=== PATIENT | male | born 1965 | race Two or more races ===

== ENCOUNTER 2017-06-27 20:21 | Emergency (ER) | payer OTHER ==
[2017-06-27 20:37] VITALS: BP 149/85; PULSE 88; TEMP 98.3; BMI 34.0
[2017-06-27] MEDS ORDERED: NAPROXEN 500 MG TABLET (FP) PO ONE (22:01)
[2017-06-27] MEDS ORDERED: diazePAM 5 MG TABLET PO ONE (22:01)
--- NOTE | 2017-06-27 22:10 | PDOC ---
History of Present Illness - General Chief Complaint: Chronic pain Stated Complaint: BACK INJURY Time Seen by Provider: 06/27/17 21:34 History Source: Patient Exam Limitations: No Limitations - History of Present Illness Initial Comments: 06/27/17 22:11 Assessment 51-year-old male with past medical history of hypertension, hyperlipidemia, and anemia who presents to the emergency department with sudden onset atraumatic lower back pain starting yesterday. Patient states he walked approximately 5-6 blocks became tired went home and took a shower. After he dried off after shower, he was putting on his underwear and when he flexed his left hip he felt a sudden onset twinge in his left lower back radiating to his mid lower back. Patient reports she's had back problems for the past 3-4 years. He states since his initial back injuries only been able to walk a maximum of 5- 6 blocks prior to feeling weakness and pain radiating down left leg and stopping at the knee. Patient also states that he has chronic numbness to his left lateral leg since initial injury. He is currently undergoing therapy with an orthopedic surgeon who was prescribed physical therapy and cortisone injections. He is to start physical therapy later this month. Past History - Past Medical History Allergies/Adverse Reactions: Allergies Allergy/AdvReac Type Severity Reaction Status Date / Time No Known Allergies Allergy Verified 06/27/17 22:02 Home Medications: Ambulatory Orders Atorvastatin Ca [Lipitor] 10 mg PO HS 06/27/17 Cyclobenzaprine HCl [Flexeril 10 mg] 10 mg PO BID PRN #20 tablet 06/27/17 Folic Acid - 1 mg PO DAILY 06/27/17 Lisinopril [Prinivil -] 40 mg PO DAILY 06/27/17 Naproxen [Naprosyn -] 500 mg PO BID 06/27/17 Nifedipine [Nifedipine ER] 60 mg PO ASDIR 06/27/17 Thiamine HCl [B-1] 100 mg PO ASDIR 06/27/17 - Suicide/Smoking/Psychosocial Hx Smoking History: Former smoker Have you smoked in the past 12 months: No Information on smoking cessation initiated: No Hx Alcohol Use: No Drug/Substance Use Hx: No Substance Use Type: None Review of Systems - Review of Systems Able to Perform ROS?: Yes Is the patient limited Nepali proficient: No Musculoskeletal: Yes: See HPI All Other Systems: Reviewed and Negative *Physical Exam - Vital Signs Last Vital Signs Temp Pulse Resp BP Pulse Ox 98.3 F 88 20 149/85 98 06/27/17 20:34 06/27/17 20:34 06/27/17 20:34 06/27/17 20:34 06/27/17 20:34 - Physical Exam General Appearance: Yes: Appropriately Dressed. No: Apparent Distress HEENT: positive: DRE, Normal ENT Inspection Neck: positive: Trachea midline, Supple Respiratory/Chest: positive: Lungs Clear, Normal Breath Sounds. negative: Respiratory Distress, Accessory Muscle Use Cardiovascular: positive: Regular Rhythm, Regular Rate. negative: Edema, Murmur Gastrointestinal/Abdominal: positive: Normal Bowel Sounds, Soft. negative: Tender Musculoskeletal: positive: Normal Inspection, Other (left paraspinous tenderness ). negative: CVA Tenderness Extremity: positive: Normal Capillary Refill, Normal Inspection Integumentary: positive: Normal Color, Dry, Warm Neurologic: positive: food server II-XII NML intact, Fully Oriented, Alert, Normal Mood/ Affect, Normal Response, Motor Strength 5/5 Medical Decision Making - Medical Decision Making 06/27/17 22:10 A/P: Assessment 51-year-old male with past medical history of hypertension, hyperlipidemia, and anemia who presents to the emergency department with sudden onset atraumatic lower back pain starting yesterday. Patient states he walked approximately 5-6 blocks became tired went home and took a shower. After he dried off after shower, he was putting on his underwear and when he flexed his left hip he felt a sudden onset twinge in his left lower back radiating to his mid lower back. Patient reports she's had back problems for the past 3-4 years. He states since his initial back injuries only been able to walk a maximum of 5- 6 blocks prior to feeling weakness and pain radiating down left leg and stopping at the knee. Patient also states that he has chronic numbness to his left lateral leg since initial injury. He is currently undergoing therapy with an orthopedic surgeon who was prescribed physical therapy and cortisone injections. He is to start physical therapy later this month. Patient is alert and oriented 3 and in no apparent distress. Trachea midline. Respirations even and unlabored. Lungs clear to auscultation bilaterally. S1 and S2 are present without murmur, rub or gallop. Regular rate and rhythm noted. Normoactive bowel sounds. Abdomen soft nontender nondistended. Tenderness to palpation in the left lower back immediately superior to the iliac crests and lateral to the spine. Pain radiates to the mid spine which is tender to palpation. No deformities, crepitus or step-offs presents. Patient is able to range her hip and knee against resistance without difficulty. Differential diagnosis includes spinal stenosis, [place] skeletal pain, sciatic nerve pain Given the patient has neurogenic claudication, likely spinal stenosis. As patient does not have any saddle anesthesia or bowel or bladder incontinence, will defer MRI at this time. Patient made aware that MRI may be required and should follow-up with his orthopedic surgeon to have testing done as an outpatient. I will medicate the patient with Valium 5 mg and Naprosyn 500 mg. I will give the patient a prescription for Flexeril to use as an outpatient. Patient instructed to keep appointment with physical therapist and to make an appointment with the orthopedic doctor who is currently providing care for the patient. 06/27/17 22:29 Patient feels better after medication. I discussed the physical exam findings, ancillary test results and final diagnoses with the patient. I answered all of the patient's questions. The patient was satisfied with the care received and felt comfortable with the discharge plan and treatment plan. The patient will call his orthopedist within 96 hours to arrange follow-up and will return to the Emergency Department with any new, persistent or worsening symptoms. *DC/Admit/Observation/Transfer Diagnosis at time of Disposition: Back pain Qualifiers: Back pain location: low back pain Chronicity: acute Back pain laterality: left Sciatica presence: without sciatica Qualified Code(s): M54.5 - Low back pain; M54.5 - Low back pain - Discharge Dispostion Disposition: HOME Condition at time of disposition: Stable Admit: No - Prescriptions Prescriptions: Cyclobenzaprine HCl [Flexeril 10 mg] 10 mg PO BID PRN #20 tablet PRN Reason: Back Pain - Patient Instructions Additional Instructions: Keep her previously scheduled appointment for physical therapy. Call the orthopedist your early seen for [place] scheduled appointment if pain is not improved within the next 4 days. Take Flexeril 10 mg twice a day as needed for back pain. You may do an MRI as an outpatient to evaluate for spinal stenosis. Return to emergency department for worsening back pain, numbness or tingling to legs, numbness or tingling to genitals or rectum, loss of control of your bladder or bowel, or any other concerns. Thank you for choosing us to provide your emergent healthcare needs.
== END 2017-06-27 22:36 | disposition home or self-care (01) ==
LOC: EDSEX 20:21 → JERFT 20:21
DX: M54.5 Low back pain (principal); I10 Essential (primary) hypertension; E78.5 Hyperlipidemia, unspecified; D64.9 Anemia, unspecified
CPT/HCPCS: 99281-25

== ENCOUNTER 2017-11-23 20:03 | Emergency (ER) | payer OTHER ==
--- NOTE | 2017-11-23 20:22 | PDOC ---
Rapid Medical Evaluation Time Seen by Provider: 11/23/17 20:17 Medical Evaluation: Allergies Allergy/AdvReac Type Severity Reaction Status Date / Time No Known Allergies Allergy Verified 06/27/17 22:02 11/23/17 20:17 The patient presents with a chief complaint of: Lower back pain. Hx of chronic low back pain. Was dusting and reached wrong earlier today. Now c/o spasm, seeing neurology/spinal specialist for the pain evaluation/management. Took naproxen at 6pm. Denies saddle anesthesia, bladder/bowel incontinence. I have performed a brief in-person evaluation of this patient; Pertinent physical exam findings: ambulatory however painful to stand straight, in no respiratory distress. Neurologically intact I have ordered the following: Nothing The patient will proceed to the ED for further evaluation.
[2017-11-23 20:23] VITALS: BP 165/134; PULSE 92; TEMP 98; BMI 38.4
[2017-11-23] MEDS ORDERED: diazePAM 5 MG TABLET PO ONE (22:22)
[2017-11-23] MEDS ORDERED: diazePAM 5 MG TABLET ONE (22:25)
--- NOTE | 2017-11-23 22:25 | PDOC ---
History of Present Illness - General Chief Complaint: Pain Stated Complaint: BACK PAIN Time Seen by Provider: 11/23/17 20:17 History Source: Patient Exam Limitations: No Limitations - History of Present Illness Initial Comments: 11/23/17 23:17 This is a 51-year-old male with past medical history of hypertension, hyperlipidemia, and anemia who presents to the emergency department with sudden onset atraumatic lower back pain starting at approximately 5pm. Patient states he was helping his housework and while dusting he reached to clear the end of a shelf with a duster and felt a sudden onset sharp pinching feeling in his mid lower back which radiated to bilateral hips and shooting down bilateral lower extremity's. Patient states she has chronic lower back pain and 1 week ago was seen by his senior computer specialist who gave him epidural injections. Patient denies incontinence of bladder or bowel, saddle anesthesia, trauma. Past History - Past Medical History Allergies/Adverse Reactions: Allergies Allergy/AdvReac Type Severity Reaction Status Date / Time No Known Allergies Allergy Verified 11/23/17 20:20 Home Medications: Ambulatory Orders Naproxen [Naprosyn -] 500 mg PO BID 06/27/17 Lisinopril/Hydrochlorothiazide [Lisinopril-Hctz 20-12.5 mg Tab] 1 each PO ASDIR 11/23/17 Methocarbamol [Robaxin -] 750 mg PO Q8H PRN #21 tablet MDD 3 11/23/17 COPD: No HTN: Yes Hypercholesterolemia: Yes - Suicide/Smoking/Psychosocial Hx Smoking History: Never smoked Have you smoked in the past 12 months: No Information on smoking cessation initiated: No Hx Alcohol Use: No Drug/Substance Use Hx: No Substance Use Type: None Review of Systems - Review of Systems Able to Perform ROS?: Yes Is the patient limited Kittitian proficient: No Constitutional: No: Symptoms Reported HEENTM: No: Symptoms Reported Respiratory: No: Symptoms reported Cardiac (ROS): No: Symptoms Reported ABD/GI: No: Symptoms Reported : No: Symptoms Reported Musculoskeletal: Yes: See HPI Integumentary: No: Symptoms Reported Neurological: No: Symptoms reported Endocrine: No: Symptoms Reported Hematologic/Lymphatic: No: Symptoms Reported *Physical Exam - Vital Signs Last Vital Signs Temp Pulse Resp BP Pulse Ox 98.0 F 92 H 20 165/134 98 11/23/17 20:21 11/23/17 20:21 11/23/17 20:21 11/23/17 20:21 11/23/17 20:21 - Physical Exam General Appearance: Yes: Appropriately Dressed. No: Apparent Distress HEENT: positive: Normal ENT Inspection Neck: positive: Trachea midline, Supple Respiratory/Chest: positive: Lungs Clear, Normal Breath Sounds. negative: Respiratory Distress, Accessory Muscle Use Cardiovascular: positive: Regular Rhythm, Regular Rate. negative: Murmur Gastrointestinal/Abdominal: positive: Normal Bowel Sounds, Soft. negative: Tender Musculoskeletal: positive: Normal Inspection. negative: CVA Tenderness, Muscle Spasm, Vertebral Tenderness Extremity: positive: Normal Inspection, Normal Range of Motion, Pelvis Stable. negative: Tender, Swelling, Erythema, Inflammation Integumentary: positive: Normal Color, Dry, Warm Neurologic: positive: Alert, Normal Response, Motor Strength 5/5. negative: Numbness, Sensory Deficit Medical Decision Making - Medical Decision Making 11/23/17 23:24 A/P: 52-year-old male with chronic back pain who reached fall while doing housework and felt an acute exacerbation of his chronic issue. No vertebral tenderness or deformity present upon palpation. Pain worsens with flexion and extension of spine. Full sensation to medial and lateral bilateral lower extremities Able to perform straight leg raises. No foot drop noted Patient able to secure an appointment with a spinal specialist tomorrow Lower back radiculopathy from no spinal stenosis Valium 5 mg by mouth now Prescription for Robaxin 750 mg 3 times a day when necessary Discharge the patient home with strict return precautions *DC/Admit/Observation/Transfer Diagnosis at time of Disposition: Radiculopathy of lumbosacral region - Discharge Dispostion Disposition: HOME Condition at time of disposition: Stable Admit: No - Prescriptions Prescriptions: Methocarbamol [Robaxin -] 750 mg PO Q8H PRN #21 tablet MDD 3 PRN Reason: Back Pain - Referrals Referrals: ON STAFF,NOT [Primary Care Provider] - - Patient Instructions Additional Instructions: Call the senior computer specialist tomorrow. Take Robaxin 750mg three times a day as needed for back pain. Return to emergency department for worsening back pain, numbness or tingling to legs, numbness or tingling to genitals or rectum, loss of control of your bladder or bowel, or any other concerns. Thank you for choosing us to provide your emergent healthcare needs. - Post Discharge Activity
== END 2017-11-23 22:48 | disposition home or self-care (01) ==
LOC: JERFT 20:03
DX: M54.17 Radiculopathy, lumbosacral region (principal); X50.1XXA Overexertion from prolonged static or awkward postures, initial encounter; Y93.E9 Activity, other interior property and clothing maintenance; Y92.038 Other place in apartment as the place of occurrence of the external cause; Y99.8 Other external cause status; I10 Essential (primary) hypertension; E78.00 Pure hypercholesterolemia, unspecified
CPT/HCPCS: 99281-25

== ENCOUNTER 2019-04-21 21:15 | Inpatient (IN) | payer OTHER ==
[2019-04-21] MEDS ORDERED: ASPIRIN 81 MG CHEWABLE TABLETS PO ONE (21:36)
[2019-04-21] MEDS ORDERED: FUROSEMIDE 40 MG/4 ML INJECTABLE VIAL IVPUSH ONE (21:36)
[2019-04-21] MEDS ORDERED: NITROGLYCERIN SUBLINGUAL 1/150 0.4 MG TAB SL ONE (21:37)
[2019-04-21] MEDS ORDERED: ASPIRIN 81 MG CHEWABLE TABLETS ONE (21:43)
[2019-04-21] MEDS ORDERED: FUROSEMIDE 40 MG/4 ML INJECTABLE VIAL ONE (21:43)
[2019-04-21] MEDS ORDERED: NITROGLYCERIN SUBLINGUAL 1/150 0.4 MG TAB ONE (21:43)
--- NOTE | 2019-04-21 21:44 | PDOC ---
History of Present Illness <GabbiGermaine - Last Filed: 04/22/19 00:06> - General History Source: Patient Exam Limitations: No Limitations - History of Present Illness Initial Comments: 04/21/19 21:51 Ben Newman is a 53yM with PMHx HTN, asthma presenting with SOB. Started 4d ago , progressively worsening, worse laying down. Associated bilateral LE edema, mild AB distension, reduced physical activity d/t SOB. No recent travel. Denies fever, cough, vision change, headache, chest/AB pain, urinary/bowel changes. <Mark Ramos - Last Filed: 04/22/19 00:47> - General Chief Complaint: Shortness of Breath Stated Complaint: SOB Time Seen by Provider: 04/21/19 21:34 Past History <GabbiGermaine - Last Filed: 04/22/19 00:06> - Past Medical History COPD: No HTN: Yes Hypercholesterolemia: Yes - Suicide/Smoking/Psychosocial Hx Smoking History: Never smoked Have you smoked in the past 12 months: No Hx Alcohol Use: No Drug/Substance Use Hx: No Substance Use Type: None <Mark Ramos - Last Filed: 04/22/19 00:47> - Past Medical History Allergies/Adverse Reactions: Allergies Allergy/AdvReac Type Severity Reaction Status Date / Time shellfish derived Allergy Severe Verified 04/21/19 22:42 Home Medications: Ambulatory Orders Lisinopril/Hydrochlorothiazide [Lisinopril-Hctz 20-12.5 mg Tab] 1 each PO ASDIR 11/23/17 Methocarbamol [Robaxin -] 750 mg PO Q8H PRN #21 tablet MDD 3 11/23/17 Hydrochlorothiazide [Hctz -] 25 mg PO DAILY 04/21/19 Lisinopril [Prinivil -] 40 mg PO DAILY 04/21/19 Review of Systems - Review of Systems Constitutional: No: Chills, Fever, Weakness HEENTM: No: Eye Pain, Nose Pain, Throat Pain, Mouth Pain Respiratory: Yes: Shortness of Breath. No: Cough, Wheezing Cardiac (ROS): No: Chest Pain, Palpitations, Syncope ABD/GI: Yes: Abdominal Distended. No: Constipated, Diarrhea, Nausea, Vomiting, Tarry Stools : No: Burning, Dysuria, Discharge, Flank Pain, Hematuria, Incontinence Musculoskeletal: No: Back Pain, Joint Pain, Muscle Pain, Muscle Weakness Integumentary: No: Bruising, Change in Color, Change in Hair/Nails Neurological: No: Headache, Numbness, Seizure, Tingling, Tremors Psychiatric: No: Anxiety, Depression Endocrine: No: Excessive Sweating, Flushing, Intolerance to Cold, Intolerance to Heat Hematologic/Lymphatic: No: Anemia, Blood Clots, Easy Bleeding <Mark Ramos - Last Filed: 04/22/19 00:47> *Physical Exam - Vital Signs Last Vital Signs Temp Pulse Resp BP Pulse Ox 98.2 F 99 H 20 140/96 97 04/21/19 21:27 04/21/19 23:38 04/21/19 21:45 04/21/19 23:38 04/21/19 23:38 <Germaine Seo - Last Filed: 04/22/19 00:06> - Vital Signs Last Vital Signs Temp Pulse Resp BP Pulse Ox 98.2 F 96 H 19 190/102 H 95 04/21/19 21:27 04/21/19 21:27 04/21/19 21:27 04/21/19 21:27 04/21/19 21:27 - Physical Exam General Appearance: Yes: Nourished, Appropriately Dressed, Mild Distress HEENT: positive: EOMI, DRE, Normal Voice, Symmetrical, Hearing Grossly Normal, Other (facial flushing, red eyes bilaterally). negative: Pale Conjunctivae, Nasal Congestion, Rhinorrhea Respiratory/Chest: positive: Crackles (L lung base). negative: Chest Tender, Respiratory Distress, Accessory Muscle Use, Rales, Rhonchi, Stridor, Wheezing Cardiovascular: positive: Regular Rhythm, S1, S2, Tachycardia. negative: Murmur Gastrointestinal/Abdominal: positive: Normal Bowel Sounds, Soft, Distended (mild ). negative: Tender, Organomegaly Extremity: positive: Swelling (+2 edema to knees bilaterally) Neurologic: positive: brief writer II-XII NML intact, Fully Oriented, Alert, Normal Response, Responsive. negative: Sensory Deficit, Confused, Disoriented <Mark Ramos - Last Filed: 04/22/19 00:47> ED Treatment Course - LABORATORY CBC & Chemistry Diagram: 04/21/19 22:00 04/21/19 22:00 - ADDITIONAL ORDERS Additional order review: Laboratory Results 04/21/19 04/21/19 04/21/19 22:00 22:00 22:00 PT with INR 11.90 INR 1.01 Sodium 140 Potassium 4.0 Chloride 106 Carbon Dioxide 26 Anion Gap 9 BUN 17.7 Creatinine 1.0 Est GFR (CKD-EPI)AfAm 99.85 Est GFR (CKD-EPI)NonAf 86.15 Random Glucose 109 H Calcium 9.3 Magnesium 2.3 Cancelled Total Bilirubin 0.2 AST 16 ALT 29 Alkaline Phosphatase 58 Creatine Kinase 97 Troponin I < 0.02 B-Natriuretic Peptide 19.4 Total Protein 8.2 Albumin 3.8 04/21/19 04/21/19 22:00 22:00 PT with INR INR Sodium Cancelled Potassium Cancelled Chloride Cancelled Carbon Dioxide Cancelled Anion Gap Cancelled BUN Cancelled Creatinine Cancelled Est GFR (CKD-EPI)AfAm Cancelled Est GFR (CKD-EPI)NonAf Cancelled Random Glucose Cancelled Calcium Cancelled Magnesium Total Bilirubin Cancelled AST Cancelled ALT Cancelled Alkaline Phosphatase Cancelled Creatine Kinase Cancelled Troponin I Cancelled B-Natriuretic Peptide Total Protein Cancelled Albumin Cancelled 04/21/19 22:00 RBC 4.58 MCV 90.3 MCHC 35.1 RDW 12.9 Neutrophils % 40.3 L Lymphocytes % 47.4 H Monocytes % 8.7 Eosinophils % 2.7 Basophils % 0.9 - Medications Given in the ED: ED Medications Discontinued Medications Generic Name Dose Route Start Last Admin Trade Name Freq PRN Reason Stop Dose Admin Aspirin 162 mg 04/21/19 21:36 04/21/19 21:42 Asa - PO 04/21/19 21:37 162 mg ONCE ONE Administration Furosemide 40 mg 04/21/19 21:36 04/21/19 21:45 Lasix Injection - IVPUSH 04/21/19 21:37 40 mg ONCE ONE Administration Nitroglycerin 0.4 mg 04/21/19 21:37 04/21/19 21:42 Nitrostat - SL 04/21/19 21:38 0.4 mg ONCE ONE Administration <Germaine Seo - Last Filed: 04/22/19 00:06> - LABORATORY CBC & Chemistry Diagram: 04/21/19 22:00 04/21/19 22:00 <Mark Ramos - Last Filed: 04/22/19 00:47> Medical Decision Making - Medical Decision Making 04/21/19 21:55 CBC CMP BNP cardiac profile coags CXR EKG 2x nitro, 40 lasix, 162 aspirin CBC, CMP coags normal, BNP 19, trop neg EKG shows flattened T waves inferior CXR shows increased intersitial infiltrates bilaterally Ben Newman is a 53yM with PMHx HTN, asthma presenting with SOB d/t congestive heart failure in setting of bilateral LE edema, orthopnea. EKG shows flattened T waves inferior. CXR shows increased intersitial infiltrates bilaterally. BNP 19. ACS unlikely w neg trop. Unlikely PE d/t absence of travel hx and bilateral LE edema. Unlikely asthma, no wheezing on exam. CBC, CMP, coags normal. Given 2x nitroglycerin brought BP from 190/100 to 150/100. Given aspirin, 40 lasix. BP down to 124/95 after lisinopril given Admitted to tele inpatient Dr Horne for CHF exacerbation, hypertensive emergency , EKG changes. <Mark Ramos - Last Filed: 04/22/19 00:47> *DC/Admit/Observation/Transfer - Discharge Dispostion Decision to Admit order: Yes <Germaine Seo - Last Filed: 04/22/19 00:06> <Mark Ramos - Last Filed: 04/22/19 00:47> Diagnosis at time of Disposition: SOB (shortness of breath), Uncontrolled hypertension, Acute electrocardiogram changes Congestive heart failure Qualifiers: Heart failure type: unspecified Heart failure chronicity: acute Qualified Code( s): I50.9 - Heart failure, unspecified - Discharge Dispostion Condition at time of disposition: Guarded - Referrals Referrals: Oscar Roldan MD [Primary Care Provider] -
[2019-04-21 22:21] LABS: BASO % 0.9 % (0-2.0); EOS % 2.7 % (0-4.5); HEMATOCRIT 41.3 % (35.4-49); HEMOGLOBIN 14.5 GM/dL (11.7-16.9); LYMPH % 47.4 % (8-40); MCH 31.7 pg (25.7-33.7); MCHC 35.1 g/dl (32.0-35.9); MEAN CELL VOLUME 90.3 fl (80-96); MONO % 8.7 % (3.8-10.2); NEUT % 40.3 % (42.8-82.8); RBC 4.58 M/mm3 (4.00-5.60); RDW 12.9 % (11.9-15.9); WHITE BLOOD COUNT 7.5 K/mm3 (4.0-10.0)
[2019-04-21 22:37] LABS: INR 1.01 (0.83-1.09); PROTHROMBIN TIME (PATIENT) 11.9 SEC (9.7-13.0)
[2019-04-21 23:01] LABS: ALBUMIN 3.8 g/dl (3.4-5.0); ALK PHOS 58 U/L (45-117); ANION GAP 9 MMOL/L (8-16); BILIRUBIN,TOTAL 0.2 mg/dL (0.2-1); BLOOD UREA NITROGEN 17.7 mg/dL (7-18); CALCIUM 9.3 mg/dL (8.5-10.1); CHLORIDE 106 mmol/L (98-107); CO2 26 mmol/L (21-32); GLUCOSE,RANDOM 109 mg/dL (74-106); MAGNESIUM 2.3 mg/dL (1.8-2.4); N-TERMINAL BNP 19.4 pg/ml (5-125); SGOT/AST 16 U/L (15-37); SGPT/ALT 29 U/L (13-61); SODIUM 140 mmol/L (136-145); TOT PROT 8.2 g/dl (6.4-8.2)
[2019-04-21 23:32] LABS: PLATELET ESTIMATE ADEQUATE
[2019-04-22] MEDS ORDERED: LISINOPRIL 20 MG TABLET (FP) PO ONE (00:05)
--- NOTE | 2019-04-22 00:05 | PDOC ---
Documentation entered by Ariana Casillas SCRIBE, acting as scribe for Germaine Seo MD. Germaine Seo MD: This documentation has been prepared by the scribe, Ariana Casillas SCRIBE, under my direction and personally reviewed by me in its entirety. I confirm that the documentation accurately reflects all work, treatment, procedures, and medical decision making performed by me. Attending Attestation - Resident Resident Name: Rachel,Mark - ED Attending Attestation I have performed the following: I have examined & evaluated the patient, The case was reviewed & discussed with the resident, I agree w/resident's findings & plan, Exceptions are as noted - HPI HPI: 04/21/19 21:48 This is a 53-year-old male, with a past medical history of asthma, HTN, HLD, who presents to the ED with 4 days of progressively worsening shortness of breath. Patients symptoms are worse when lying down and are associated with dyspnea, B/L LE swelling, and abdominal distension. He denies any recent travel. The patient denies any fever, chills, cough, nausea, vomiting, diarrhea, constipation, or abdominal pain. Denies any chest pain or palpitations. Denies any headache, dizziness, weakness , lightheadedness, numbness or tingling, or vision changes. - Physicial Exam PE: 04/21/19 21:48 GENERAL: (+)Obese. Awake, alert, and fully oriented, in no acute distress HEAD: No signs of trauma EYES: PERRLA, EOMI, sclera anicteric, conjunctiva clear ENT: Auricles normal inspection, hearing grossly normal, nares patent, oropharynx clear without exudates. Moist mucosa NECK: Normal ROM, supple, no lymphadenopathy, JVD, or masses LUNGS: Breath sounds equal, clear to auscultation bilaterally. No wheezes, and no crackles HEART: Regular rate and rhythm, normal S1 and S2, no murmurs, rubs or gallops ABDOMEN: Soft, nontender, normoactive bowel sounds. No guarding, no rebound. No masses EXTREMITIES: (+)Minimal LE swelling. Normal range of motion. No clubbing or cyanosis. No cords, erythema, or tenderness NEUROLOGICAL: Cranial nerves II through XII grossly intact. Normal speech, normal gait SKIN: Warm, Dry, normal turgor, no rashes or lesions noted - Medical Decision Making 04/22/19 00:04 Pt has normal labs; however EKG flattening inferiorly; SOB and elevated BP. 04/22/19 00:04 Pt will be admitted for EKG changes and SOB.
[2019-04-22] MEDS ORDERED: LISINOPRIL 20 MG TABLET (FP) ONE (00:22)
--- NOTE | 2019-04-22 00:33 | PN ---
Teaching Attending Note Name of Resident: Renato Edwards ATTENDING PHYSICIAN STATEMENT I saw and evaluated the patient. I reviewed the resident's note and discussed the case with the resident. I agree with the resident's findings and plan as documented. SUBJECTIVE: Patient is a 53 year old man with PMH of Asthma, HTN, ?Prediabetes and HLD, who presents to the ED with 4 days of progressively worsening shortness of breath. Patients symptoms are worse when lying down and are associated with dyspnea, bilateral lower extremity swelling and abdominal distension. He denies any recent travel. The patient denies any fever, chills, cough, nausea, vomiting, diarrhea, constipation, or abdominal pain. Denies any chest pain or palpitations. Denies any headache, dizziness, weakness, lightheadedness, numbness or tingling, or vision changes. No FH of premature CAD. OBJECTIVE: Alert Vital Signs Period Temp Pulse Resp BP Sys/Hoyt Pulse Ox Last 24 Hr 98.2 F 76-99 19-20 124-190/95-102 95-100 HEENT: No Jaundice or discharge, +conjunctival injection; PERRLA, EOMI. Normocephalic, atraumatic. External ears are normal and hearing is grossly intact. No nasal discharge. Neck: Supple, nontender. No palpable adenopathy or thyromegaly. No JVD Chest: Good effort. Clear to auscultation and percussion. Heart: Regular. No S3, rub or murmur Abdomen: Not distended, soft, nontender and no HSM. No rebound or guarding. Normal bowel sounds. Ext: Peripheral pulses intact. Leg edema. Skin: Warm and dry. No petechiae, rash or ecchymosis. Neuro: Alert. Oriented x3. CN 2-12 grossly intact. Sensation grossly intact in all four extremities and DTR are symmetric. Psych: Appropriate mood and affect. Good insight. Home Medications Medication Instructions Recorded Lisinopril/Hydrochlorothiazide 1 each PO ASDIR 11/23/17 [Lisinopril-Hctz 20-12.5 mg Tab] Methocarbamol [Robaxin -] 750 mg PO Q8H PRN #21 tablet MDD 3 11/23/17 Hydrochlorothiazide [Hctz -] 25 mg PO DAILY 04/21/19 Lisinopril [Prinivil -] 40 mg PO DAILY 04/21/19 Abnormal Lab Results 04/21/19 04/21/19 22:00 22:00 Neutrophils % 40.3 L Lymphocytes % 47.4 H Random Glucose 109 H ASSESSMENT AND PLAN: 1. CHF and Uncontrolled Hypertension - Presentation consistent with new onset CHF. CXR is reported as increased interstitial infiltrates and EKG shows NSR with T wave inversion in III and aVF. Initial troponin is negative. Got Aspirin 162 mg, Lasix 40 mg IV, SL NTG and Lisinopril 20 mg and the BP improved to 124/ 95. Will get ECHO, continue IV lasix daily, restrict dietary salt intake, get daily standing weight and consult cardiology. Will restart suitable outpatient antihypertensive drugs when clinically appropriate. Revise regimen to ensure [id number] excellent BP control and personnel counselor patient on the injurious effects of uncontrolled hypertension. Nonpharmacologic measures to control hypertension like weight loss, salt restriction and exercise discussed. Importance of adherence to treatment regimen and attainment of normotension emphasized. 2. Obesity Counseled on the risks associated with obesity. Will provide patient all the necessary assistance, counseling and positive reinforcement to facilitate weight loss. Consult alarm service technician. 3. Prediabetes Will check HbA1c and implement sliding scale insulin regimen. Provide comprehensive diabetes care with patient teaching and counseling about the importance of adherence to prescribed diabetes regimen, euglycemia, eye care and foot care. 4. DVT prophylaxis - Lovenox 40 mg SQ q 24 hours. 5. Advance directives - Full code
--- NOTE | 2019-04-22 01:45 | HP ---
CHIEF COMPLAINT: SOB PCP: Dr. Oscar Roldan HISTORY OF PRESENT ILLNESS: This is a 53 y/o gentleman with a PMH of HCV ( treated and now undetectable), asthma, and HTN who presented with sob for 4 days that severely worsened this afternoon while he was watching tv. Pt denies any cp, nausea, vomiting, fevers, chills associated with this complaint. He admits to using 3 pillows at night when he sleeps and has not increased the amount of pillows recently. He admits to paroxysmal nocturnal dyspnea as well as orthopnea for the past 2 years that has not improved with use of his ventolin inhaler. He gets SOB after walking 1 block. Pt not on any home oxygen. He does not see any employment manager or dietitian consultant. His last echo and stress test were done 5 yrs ago in [place] and per patient they were found to be normal. Additionally, patient endorses to recent polydipsia and polyuria and per patient his recent A1C consistent with prediabetes 3 mths ago. ER course was notable for: (1)lisinopril 40mg, nitro X2, and lasix 40IV given and HTN urgency resolved (2)CXR shows interstitial infiltrates as per ED reading (3) EKG significant for flattened t wave in inf leads Recent Travel: [place] 3 m[place] ago. PAST MEDICAL HISTORY: see above in HPI PAST SURGICAL HISTORY: none Social History: Smoking: none Alcohol: used to drink 12 pack of beer every day for years but now only occasional Drugs: none Family History: Mom and Dad- HTN Allergies shellfish derived Allergy (Severe, Verified 04/21/19 22:42) HOME MEDICATIONS: Home Medications Medication Instructions Recorded Lisinopril/Hydrochlorothiazide 1 each PO ASDIR 11/23/17 [Lisinopril-Hctz 20-12.5 mg Tab] Methocarbamol [Robaxin -] 750 mg PO Q8H PRN #21 tablet MDD 3 11/23/17 Hydrochlorothiazide [Hctz -] 25 mg PO DAILY 04/21/19 Lisinopril [Prinivil -] 40 mg PO DAILY 04/21/19 REVIEW OF SYSTEMS negative except above in HPI PHYSICAL EXAMINATION Vital Signs - 24 hr 04/21/19 04/21/19 04/21/19 21:27 21:45 22:35 Temperature 98.2 F Pulse Rate 96 H 92 H Pulse Rate [ 92 H Apical] Respiratory 19 20 Rate Blood Pressure 190/102 H Blood Pressure 151/102 H [Left Arm] O2 Sat by Pulse 95 97 97 Oximetry (%) 04/21/19 04/21/19 04/22/19 22:55 23:38 00:31 Temperature Pulse Rate 88 Pulse Rate [ 99 H 76 Apical] Respiratory 20 Rate Blood Pressure Blood Pressure 140/96 124/95 [Left Arm] O2 Sat by Pulse 99 97 100 Oximetry (%) GENERAL: Awake, alert, and fully oriented, in no acute distress. EYES: b/l conjunctival injection, opthalmoscopic exam showing no cotton wool exudates, floaters. NECK: no JVD LUNGS: Breath sounds equal, clear to auscultation bilaterally. No wheezes, and no crackles. HEART: Regular rate and rhythm, normal S1 and S2 without murmur, rub or gallop. ABDOMEN: Soft, nontender, not distended, normoactive bowel sounds, no guarding, no rebound. LOWER EXTREMITIES: 2+ pulses, warm, well-perfused. No calf tenderness. trace to 1+ peripheral edema. NEUROLOGICAL: Normal speech. did not observe gait. PSYCHIATRIC: Cooperative. Good eye contact. Appropriate mood and affect. SKIN: Warm, dry. Laboratory Results - last 24 hr 04/21/19 04/21/19 04/21/19 22:00 22:00 22:00 WBC 7.5 RBC 4.58 Hgb 14.5 Hct 41.3 MCV 90.3 MCH 31.7 MCHC 35.1 RDW 12.9 Plt Count No Result Required. Absolute Neuts (auto) 3.0 Neutrophils % 40.3 L Lymphocytes % 47.4 H Monocytes % 8.7 Eosinophils % 2.7 Basophils % 0.9 Nucleated RBC % 0 Platelet Estimate Adequate Platelet Comment PT with INR INR Sodium Cancelled Potassium Cancelled Chloride Cancelled Carbon Dioxide Cancelled Anion Gap Cancelled BUN Cancelled Creatinine Cancelled Est GFR (CKD-EPI)AfAm Cancelled Est GFR (CKD-EPI)NonAf Cancelled Random Glucose Cancelled Calcium Cancelled Magnesium Total Bilirubin Cancelled AST Cancelled ALT Cancelled Alkaline Phosphatase Cancelled Creatine Kinase Cancelled Troponin I Cancelled B-Natriuretic Peptide Total Protein Cancelled Albumin Cancelled 04/21/19 04/21/19 04/21/19 22:00 22:00 22:00 WBC RBC Hgb Hct MCV MCH MCHC RDW Plt Count Absolute Neuts (auto) Neutrophils % Lymphocytes % Monocytes % Eosinophils % Basophils % Nucleated RBC % Platelet Estimate Platelet Comment PT with INR 11.90 INR 1.01 Sodium 140 Potassium 4.0 Chloride 106 Carbon Dioxide 26 Anion Gap 9 BUN 17.7 Creatinine 1.0 Est GFR (CKD-EPI)AfAm 99.85 Est GFR (CKD-EPI)NonAf 86.15 Random Glucose 109 H Calcium 9.3 Magnesium Cancelled 2.3 Total Bilirubin 0.2 AST 16 ALT 29 Alkaline Phosphatase 58 Creatine Kinase 97 Troponin I < 0.02 B-Natriuretic Peptide 19.4 Total Protein 8.2 Albumin 3.8 ASSESSMENT/PLAN: This is a 53 y/o gentleman with a PMH of HCV (treated and now undetectable), asthma, and HTN who presented with sob for 4 days but severely worsened this afternoon while he was watching tv. #New onset CHF exacerbation - doubt asthma exacerbation given lack of wheezing or improvement with ventolin. - echo ordered - cardiac profile pending, first trop negative - c/w IV lasix 40mg daily - cardio consulted (dr. merritt) - BNP normal - tele monitoring - I&O - daily wts #Hypertensive urgency - resolved - continue w home meds #Asthma - c/w ventolin inhaler #Pre-DM - per patient hx and symptoms - A1c DVT PPX: lovenox 40mg SQ Dispo: monitor on tele, pt's girlfriend will bring all the home meds tomorrow, med rec tm with day team. #FEN: monitor off fluids, monitor lytes, low Na diet ATTENDING PHYSICIAN STATEMENT I saw and evaluated the patient. I reviewed the resident's note and discussed the case with the resident. I agree with the resident's findings and plan as documented. SUBJECTIVE: OBJECTIVE: ASSESSMENT AND PLAN:
[2019-04-22 03:11] VITALS: BMI 39.7
[2019-04-22] MEDS ORDERED: IBUPROFEN 400 MG TABLET (FP) PO ONE ×2 (03:25→21:14)
--- NOTE | 2019-04-22 08:49 | CON.CARD ---
Consult Consult Specialty:: cardiology Reason for Consultation:: shortness of breath - History of Present Illness History of Present Illness: This is a 53-year-old male, with a past medical history of asthma, HTN, HLD, ? CHF, obesity, sedentary lifestyle (disabled from "spinal stenosis and arthritis of the knees"), who presents to the ED with 4 days of progressively worsening shortness of breath. Patients symptoms are worse when lying down and are associated with dyspnea, B/L LE swelling, and abdominal distension. He denies any recent travel. The patient denies any fever, chills, cough, nausea, vomiting, diarrhea, constipation, or abdominal pain. Denies any chest pain or palpitations. Denies any headache, dizziness, weakness , lightheadedness, numbness or tingling, or vision changes. Pt says he had a cardiac stress test about 5 yrs ago; he believes it was negative for ischemia; he has never had a coronary angiogram. PMD: Dr. Carlos Roldan - History Source History Provided By: Patient, Family Member (), Medical Record Limitations to Obtaining History: No Limitations - Past Medical History Cardio/Vascular: Yes: HTN Pulmonary: Yes: Asthma, Sleep Apnea (r/o; snores; takes an afternoon nap; obese ; sedentary) - Alcohol/Substance Use Hx Alcohol Use: No - Smoking History Smoking history: Never smoked Have you smoked in the past 12 months: No Home Medications - Allergies Allergies/Adverse Reactions: Allergies Allergy/AdvReac Type Severity Reaction Status Date / Time shellfish derived Allergy Severe Verified 04/21/19 22:42 - Home Medications Home Medications: Ambulatory Orders Hydrochlorothiazide [Hctz -] 12.5 mg PO DAILY 04/21/19 Lisinopril [Prinivil -] 40 mg PO DAILY 04/21/19 Aspirin [Lo-Dose Aspirin EC] 81 mg PO DAILY 04/22/19 Centrum Adults Tablet 1 tab PO DAILY 04/22/19 Folic Acid 1 mg PO DAILY 04/22/19 Nifedipine [Procardia Xl] 60 mg PO BID 04/22/19 Thiamine HCl [B-1] 100 mg PO DAILY 04/22/19 Amlodipine Besylate [Norvasc -] 5 mg PO DAILY #30 tablet 04/23/19 Vital Signs: Vital Signs Temperature 97.9 F 04/22/19 08:48 Pulse Rate 72 04/22/19 08:48 Respiratory Rate 18 08/17/19 08:48 Blood Pressure 133/81 04/22/19 08:48 O2 Sat by Pulse Oximetry (%) 98 04/22/19 06:00 - Other Data Labs, Other Data: CBC, BMP 04/21/19 22:00 04/21/19 22:00 INR, PTT INR 1.01 (0.83-1.09) 04/21/19 22:00 Troponin, BNP 04/21/19 04/21/19 22:00 22:00 Troponin I Cancelled < 0.02 B-Natriuretic Peptide 19.4 Troponin, BNP 04/21/19 04/21/19 22:00 22:00 Troponin I Cancelled < 0.02 B-Natriuretic Peptide 19.4 Problem List - Problems (1) Obesity (BMI 30-39.9) Assessment/Plan: The need to lose weight to reduce cardiac risks, help aoivd diabetes (Pt was told he is "on the border" by his PMD), reduce strain on back and knees was discussed in detail with him and his . Code(s): E66.9 - OBESITY, UNSPECIFIED (2) Spinal stenosis Code(s): M48.00 - SPINAL STENOSIS, SITE UNSPECIFIED (3) Arthritis of both knees Code(s): M17.0 - BILATERAL PRIMARY OSTEOARTHRITIS OF KNEE (4) Sedentary lifestyle Code(s): Z91.89 - OT PERSONAL RISK FACTORS, NOT ELSEWHERE CLASSIFIED (5) SOB (shortness of breath) Code(s): R06.02 - SHORTNESS OF BREATH (6) Back pain Code(s): M54.9 - DORSALGIA, UNSPECIFIED Qualifiers: Back pain location: low back pain Chronicity: chronic Back pain laterality: bilateral Sciatica presence: with sciatica Sciatica laterality: bilateral sciatica Qualified Code(s): M54.42 - Lumbago with sciatica, left side; M54.41 - Lumbago with sciatica, right side; G89.29 - Other chronic pain (7) HTN (hypertension) Code(s): I10 - ESSENTIAL (PRIMARY) HYPERTENSION (8) Bronchial asthma Assessment/Plan: on pumps at home. F/u with exhibit carpenter. Code(s): J45.909 - UNSPECIFIED ASTHMA, UNCOMPLICATED (9) Sleep apnea Assessment/Plan: r/o: pt has rosalieady been scheduled for sleep studies by his PMD. Code(s): G47.30 - SLEEP APNEA, UNSPECIFIED (10) [place] cardiac risk 10-20% in next 10 years Assessment/Plan: F?u stress test results form several years ago. TNI < 0.02 x 2; EKG without significnat ST-T changes. No chest pain. ECHO for LVEF, wall motion and thickness, valve status (will be done next week as outpatient). From a cardiac standpoint, pt may be followed up as an outpatient. Code(s): Z91.89 - [facility] PERSONAL RISK FACTORS, NOT ELSEWHERE CLASSIFIED
[2019-04-22] MEDS: ENOXAPARIN NA (PORCINE) 40 MG/0.4 ML DISP.SYRIN SQ SCH (08:59)
[2019-04-22] MEDS: FUROSEMIDE 40 MG/4 ML INJECTABLE VIAL IVPUSH SCH (08:59)
[2019-04-22] MEDS: LISINOPRIL 20 MG TABLET (FP) PO SCH (08:59)
[2019-04-22] MEDS ORDERED: PNEUMOC 13-VAL CONJ-DIP CRM/PF 0.5 ML DISP.SYRIN IM ONE (09:00)
[2019-04-22] MEDS ORDERED: HYDROCHLOROTHIAZIDE 25 MG TABLET (FP) PO SCH (10:00)
[2019-04-22] MEDS ORDERED: PATIENT'S OWN MEDICATION (NON-FORMULARY) (Lisinopril [Prinivil -] 40 MG) PO SCH (10:00)
--- NOTE | 2019-04-22 10:53 | HOSP ---
Subjective - Review of Symptoms Events since last encounter: Patient is feeling better with naa foremane distress, was given IV Lasix where he stated that he diuresed around to liter so far. at bed side. Discussed with cardio . will continue to monitor and possible discharge in am , echo as an outpatient at the lead maintenance technician office. Temperature 97.9 F 04/22/19 08:48 Pulse Rate 72 04/22/19 08:48 Respiratory Rate 18 04/22/19 09:00 Blood Pressure 133/81 04/22/19 08:48 O2 Sat by Pulse Oximetry (%) 98 04/22/19 09:00 Current Medications Generic Name Dose Route Start Last Admin Trade Name Freq PRN Reason Stop Dose Admin Enoxaparin Sodium 40 mg 04/22/19 10:00 04/22/19 08:59 Lovenox - SQ 40 mg DAILY MIAH Administration Furosemide 40 mg 04/22/19 10:00 04/22/19 08:59 Lasix Injection - IVPUSH 40 mg DAILY MIAH Administration Hydrochlorothiazide 25 mg 04/22/19 10:00 04/22/19 08:59 Hctz - PO 25 mg DAILY MIAH Administration Lisinopril 40 mg 04/22/19 10:00 04/22/19 08:59 Prinivil PO 40 mg DAILY MIAH Administration Pneumococcal Polyvalent Vaccine 0.5 ml 04/22/19 11:00 Pneumovax - IM 04/22/19 11:01 .ONCE ONE Home Medications Medication Instructions Recorded Hydrochlorothiazide [Hctz -] 12.5 mg PO DAILY 04/21/19 Lisinopril [Prinivil -] 40 mg PO DAILY 04/21/19 Aspirin [Lo-Dose Aspirin EC] 81 mg PO DAILY 04/22/19 Centrum Adults Tablet tab PO DAILY 04/22/19 Folic Acid 1 mg PO DAILY 04/22/19 Nifedipine [Procardia Xl] 60 mg PO BID 04/22/19 Thiamine HCl [B-1] 100 mg PO DAILY 04/22/19 Physical Examination Vital Signs: Vital Signs Temperature 97.9 F 04/22/19 08:48 Pulse Rate 72 04/22/19 08:48 Respiratory Rate 18 04/22/19 09:00 Blood Pressure 133/81 04/22/19 08:48 O2 Sat by Pulse Oximetry (%) 98 04/22/19 09:00 Labs: CBC, BMP 04/21/19 22:00 04/21/19 22:00
[2019-04-22] MEDS ORDERED: PNEUMOCOCCAL 23 VACCINE 0.5 ML VIAL IM ONE (11:00)
[2019-04-23 07:31] LABS: BASO % 0.7 % (0-2.0); HEMATOCRIT 40.9 % (35.4-49); HEMOGLOBIN 14.2 GM/dL (11.7-16.9); LYMPH % 44.5 % (8-40); MCH 31.5 pg (25.7-33.7); MCHC 34.7 g/dl (32.0-35.9); MEAN CELL VOLUME 90.7 fl (80-96); MEAN PLT VOLUME 8.2 fl (7.5-11.1); MONO % 11.4 % (3.8-10.2); NEUT % 39.4 % (42.8-82.8); PLATELET COUNT 287 K/MM3 (134-434); RBC 4.51 M/mm3 (4.00-5.60); RDW 13.4 % (11.9-15.9); WHITE BLOOD COUNT 4.2 K/mm3 (4.0-10.0)
[2019-04-23 07:56] LABS: ALBUMIN 3.5 g/dl (3.4-5.0); ALK PHOS 59 U/L (45-117); ANION GAP 7 MMOL/L (8-16); BILIRUBIN,TOTAL 0.5 mg/dL (0.2-1); BLOOD UREA NITROGEN 25.7 mg/dL (7-18); CALCIUM 8.8 mg/dL (8.5-10.1); CHLORIDE 102 mmol/L (98-107); CO2 30 mmol/L (21-32); CREATININE 1.4 mg/dL (0.55-1.3); GLUCOSE,RANDOM 104 mg/dL (74-106); MAGNESIUM 2.4 mg/dL (1.8-2.4); PHOSPHOROUS 4.3 mg/dL (2.5-4.9); POTASSIUM 3.8 mmol/L (3.5-5.1); SGOT/AST 13 U/L (15-37); SGPT/ALT 26 U/L (13-61); SODIUM 138 mmol/L (136-145); TOT PROT 7.7 g/dl (6.4-8.2)
--- NOTE | 2019-04-23 08:57 | PN ---
Teaching Attending Note Name of Resident: Caitlin Olivia ATTENDING PHYSICIAN STATEMENT I saw and evaluated the patient. I reviewed the resident's note and discussed the case with the resident. I agree with the resident's findings and plan as documented. SUBJECTIVE: Patient is feeling better with no acute distress. OBJECTIVE: Vital Signs Temperature 98.8 F 04/23/19 06:00 Pulse Rate 60 04/23/19 06:00 Respiratory Rate 20 04/23/19 06:00 Blood Pressure 132/88 04/23/19 06:00 O2 Sat by Pulse Oximetry (%) 93 L 04/22/19 20:21 GENERAL: Awake, alert, and fully oriented, in no acute distress. EYES: clear, NECK: no JVD LUNGS: Breath sounds equal, clear to auscultation bilaterally. No wheezes, and no crackles. HEART: Regular rate and rhythm, normal S1 and S2 without murmur, rub or gallop. ABDOMEN: Soft, nontender, not distended, normoactive bowel sounds, no guarding, no rebound. LOWER EXTREMITIES: 2+ pulses, warm, well-perfused. No calf tenderness. trace to 1+ peripheral edema. NEUROLOGICAL: Normal speech. gait is stable. PSYCHIATRIC: Cooperative. Good eye contact. Appropriate mood and affect. SKIN: Warm, dry. CBCD WBC 4.2 K/mm3 (4.0-10.0) 04/23/19 06:01 RBC 4.51 M/mm3 (4.00-5.60) 04/23/19 06:01 Hgb 14.2 GM/dL (11.7-16.9) 04/23/19 06:01 Hct 40.9 % (35.4-49) 04/23/19 06:01 MCV 90.7 fl (80-96) 04/23/19 06:01 MCHC 34.7 g/dl (32.0-35.9) 04/23/19 06:01 RDW 13.4 % (11.9-15.9) 04/23/19 06:01 Plt Count 287 K/MM3 (134-434) 04/23/19 06:01 MPV 8.2 fl (7.5-11.1) 04/23/19 06:01 CMP Sodium 138 mmol/L (136-145) 04/23/19 06:01 Potassium 3.8 mmol/L (3.5-5.1) 04/23/19 06:01 Chloride 102 mmol/L (98-107) 04/23/19 06:01 Carbon Dioxide 30 mmol/L (21-32) 04/23/19 06:01 Anion Gap 7 MMOL/L (8-16) L 04/23/19 06:01 BUN 25.7 mg/dL (7-18) H 04/23/19 06:01 Creatinine 1.4 mg/dL (0.55-1.3) H 04/23/19 06:01 Random Glucose 104 mg/dL (74-106) 04/23/19 06:01 Calcium 8.8 mg/dL (8.5-10.1) 04/23/19 06:01 Total Bilirubin 0.5 mg/dL (0.2-1) 04/23/19 06:01 AST 13 U/L (15-37) L 04/23/19 06:01 ALT 26 U/L (13-61) 04/23/19 06:01 Alkaline Phosphatase 59 U/L (45-117) 04/23/19 06:01 Total Protein 7.7 g/dl (6.4-8.2) 04/23/19 06:01 Albumin 3.5 g/dl (3.4-5.0) 04/23/19 06:01 CARDIAC ENZYMES Creatine Kinase 71 U/L (26-308) 04/23/19 06:01 Troponin I < 0.02 ng/ml (0.00-0.05) 04/23/19 06:01 Current Medications Generic Name Dose Route Start Last Admin Trade Name Edgar PRN Reason Stop Dose Admin Amlodipine Besylate 5 mg 04/23/19 10:00 04/23/19 10:22 Norvasc - PO 5 mg DAILY MIAH Administration Sodium Chloride 1,000 mls @ 75 mls/hr 04/23/19 09:30 04/23/19 10:22 1/2 Normal Saline IV 75 mls/hr ASDIR MIAH Administration Sodium Chloride 250 mls @ 250 mls/hr 04/23/19 15:49 04/23/19 15:55 1/2 Normal Saline IV 250 mls/hr ASDIR MIAH Administration Home Medications Medication Instructions Recorded Hydrochlorothiazide [Hctz -] 12.5 mg PO DAILY 04/21/19 Lisinopril [Prinivil -] 40 mg PO DAILY 04/21/19 Aspirin [Lo-Dose Aspirin EC] 81 mg PO DAILY 04/22/19 Centrum Adults Tablet tab PO DAILY 04/22/19 Folic Acid 1 mg PO DAILY 04/22/19 Nifedipine [Procardia Xl] 60 mg PO BID 04/22/19 Thiamine HCl [B-1] 100 mg PO DAILY 04/22/19 ASSESSMENT AND PLAN: Patient is a 53yo male presented to the ED. for having shortness of breath. # ARF will hold off lasix/lisinopril for now, ivf, will repeat the renal function if trending down will discharge otherwise will continue to hydrate and discharge him in am. # HTN controlled will continue with Norvasc 5mg daily. follow up with your primary and cardiology Dr. Powers in am , echo in am # SOB improved # Obesity (BMI 30-39.9); discussed weight loss and lifestyle change # Arthritis of both knees suggested lifestyle modification
[2019-04-23] MEDS: ENOXAPARIN NA (PORCINE) 40 MG/0.4 ML DISP.SYRIN SQ SCH (09:04)
[2019-04-23] MEDS: FUROSEMIDE 40 MG/4 ML INJECTABLE VIAL IVPUSH SCH (09:04)
[2019-04-23] MEDS: LISINOPRIL 20 MG TABLET (FP) PO SCH (09:04)
[2019-04-23] MEDS ORDERED: SODIUM CHLORIDE 0.45% 1,000 ML IV SCH (09:30)
[2019-04-23] MEDS ORDERED: amLODIPine BESYLATE 5 MG TABLET (FP) PO SCH (10:00)
--- NOTE | 2019-04-23 10:55 | PN ---
Physical Exam: SUBJECTIVE: Patient seen and examined OBJECTIVE: Vital Signs Period Temp Pulse Resp BP Sys/Hoyt Pulse Ox Last 24 Hr 97.6 F-98.8 F 60-82 18-20 108-140/70-92 93-97 GENERAL: The patient is awake, alert, and fully oriented, in no acute distress. HEAD: Normal with no signs of trauma. EYES: PERRL, extraocular movements intact, sclera anicteric, conjunctiva clear. No ptosis. ENT: Ears normal, nares patent, oropharynx clear without exudates, moist mucous membranes. NECK: Trachea midline, full range of motion, supple. LUNGS: Breath sounds equal, clear to auscultation bilaterally, no wheezes, no crackles, no accessory muscle use. HEART: Regular rate and rhythm, S1, S2 without murmur, rub or gallop. ABDOMEN: Soft, nontender, nondistended, normoactive bowel sounds, no guarding, no rebound, no hepatosplenomegaly, no masses. EXTREMITIES: 2+ pulses, warm, well-perfused, no edema. NEUROLOGICAL: Cranial nerves II through XII grossly intact. Normal speech, gait not observed. PSYCH: Normal mood, normal affect. SKIN: Warm, dry, normal turgor, no rashes or lesions noted Laboratory Results - last 24 hr 04/23/19 04/23/19 04/23/19 06:01 06:01 06:01 WBC 4.2 RBC 4.51 Hgb 14.2 Hct 40.9 MCV 90.7 MCH 31.5 MCHC 34.7 RDW 13.4 Plt Count 287 MPV 8.2 Absolute Neuts (auto) 1.6 Neutrophils % 39.4 L Lymphocytes % 44.5 H Monocytes % 11.4 H Eosinophils % 4.0 Basophils % 0.7 Nucleated RBC % 0 Sodium 138 Potassium 3.8 Chloride 102 Carbon Dioxide 30 Anion Gap 7 L BUN 25.7 H Creatinine 1.4 H Est GFR (CKD-EPI)AfAm 66.48 Est GFR (CKD-EPI)NonAf 57.36 Random Glucose 104 Hemoglobin A1c % 6.2 Calcium 8.8 Phosphorus 4.3 Magnesium 2.4 Total Bilirubin 0.5 AST 13 L ALT 26 Alkaline Phosphatase 59 Creatine Kinase 71 Troponin I < 0.02 Total Protein 7.7 Albumin 3.5 Active Medications Generic Name Dose Route Start Last Admin Trade Name Freq PRN Reason Stop Dose Admin Amlodipine Besylate 5 mg 04/23/19 10:00 04/23/19 10:22 Norvasc - PO 5 mg DAILY MIAH Administration Sodium Chloride 1,000 mls @ 75 mls/hr 04/23/19 09:30 04/23/19 10:22 1/ Normal Saline IV 75 mls/hr ASDIR MIAH Administration ASSESSMENT/PLAN: ATTENDING PHYSICIAN STATEMENT I saw and evaluated the patient. I reviewed the resident's note and discussed the case with the resident. I agree with the resident's findings and plan as documented. SUBJECTIVE: OBJECTIVE: ASSESSMENT AND PLAN:
--- NOTE | 2019-04-23 11:36 | EKG ---
Test Reason : Blood Pressure : / mmHG Vent. Rate : 069 BPM Atrial Rate : 069 BPM P-R Int : 174 ms QRS Dur : 090 ms QT Int : 424 ms P-R-T Axes : 050 000 033 degrees QTc Int : 454 ms NORMAL SINUS RHYTHM MINIMAL VOLTAGE CRITERIA FOR LVH, MAY BE NORMAL VARIANT BORDERLINE ECG WHEN COMPARED WITH ECG OF 21-APR-2019 22:17, NO SIGNIFICANT CHANGE WAS FOUND Confirmed by CHARLEE BURNHAM, YURI ([id number]) on 04/23/2019 11:36:20 AM Referred By: Evelyn ESTRADA Confirmed By:YURI DESHPANDE MD
--- NOTE | 2019-04-23 11:37 | EKG ---
Test Reason : Blood Pressure : / mmHG Vent. Rate : 095 BPM Atrial Rate : 095 BPM P-R Int : 168 ms QRS Dur : 088 ms QT Int : 374 ms P-R-T Axes : 035 -08 020 degrees QTc Int : 469 ms NORMAL SINUS RHYTHM MODERATE VOLTAGE CRITERIA FOR LVH, MAY BE NORMAL VARIANT BORDERLINE ECG NO PREVIOUS ECGS AVAILABLE Confirmed by YURI DESHPANDE MD ([id number]) on 04/23/2019 11:37:45 AM Referred By: Confirmed By:YURI DESHPANDE MD
[2019-04-23 13:07] VITALS: BP 147/91; PULSE 81; TEMP 98.7
[2019-04-23] MEDS ORDERED: SODIUM CHLORIDE 0.45% 250 ML IV SCH (15:49)
--- NOTE | 2019-04-23 16:25 | PN ---
Physical Exam: SUBJECTIVE: Patient seen and examined at bedside. No acute events overnight. Pt feels well. Denies f/c, n/v, chest pain, sob, abd pain, urinary or bowel symptoms. OBJECTIVE: Vital Signs Temperature 98.7 F 04/23/19 13:00 Pulse Rate 81 04/23/19 13:00 Respiratory Rate 18 04/23/19 13:00 Blood Pressure 147/91 04/23/19 13:00 O2 Sat by Pulse Oximetry (%) 97 04/23/19 09:00 GENERAL: Awake, alert, and fully oriented, in no acute distress. HEENT: AT/NC. EOMI. Moist mucus membranes. NECK: no JVD LUNGS: Breath sounds equal, clear to auscultation bilaterally. No wheezes, and no crackles. HEART: Regular rate and rhythm, normal S1 and S2 without murmur, rub or gallop. ABDOMEN: Soft, nontender, not distended, normoactive bowel sounds, no guarding, no rebound. LOWER EXTREMITIES: 2+ pulses, warm, well-perfused. No calf tenderness. trace to 1+ peripheral edema. NEUROLOGICAL: Normal speech. did not observe gait. PSYCHIATRIC: Cooperative. Good eye contact. Appropriate mood and affect. SKIN: Warm, dry. Laboratory Results - last 24 hr 04/23/19 04/23/19 04/23/19 06:01 06:01 06:01 WBC 4.2 RBC 4.51 Hgb 14.2 Hct 40.9 MCV 90.7 MCH 31.5 MCHC 34.7 RDW 13.4 Plt Count 287 MPV 8.2 Absolute Neuts (auto) 1.6 Neutrophils % 39.4 L Lymphocytes % 44.5 H Monocytes % 11.4 H Eosinophils % 4.0 Basophils % 0.7 Nucleated RBC % 0 Sodium 138 Potassium 3.8 Chloride 102 Carbon Dioxide 30 Anion Gap 7 L BUN 25.7 H Creatinine 1.4 H Est GFR (CKD-EPI)AfAm 66.48 Est GFR (CKD-EPI)NonAf 57.36 Random Glucose 104 Hemoglobin A1c % 6.2 Calcium 8.8 Phosphorus 4.3 Magnesium 2.4 Total Bilirubin 0.5 AST 13 L ALT 26 Alkaline Phosphatase 59 Creatine Kinase 71 Troponin I < 0.02 Total Protein 7.7 Albumin 3.5 Active Medications Amlodipine Besylate (Norvasc -) 5 mg PO DAILY MIAH Last Admin: 04/23/19 10:22 Dose: 5 mg Sodium Chloride (1/2 Normal Saline) 1,000 mls @ 75 mls/hr IV ASDIR MIAH Last Admin: 04/23/19 10:22 Dose: 75 mls/hr Sodium Chloride (1/2 Normal Saline) 250 mls @ 250 mls/hr IV ASDIR MIAH Last Admin: 04/23/19 15:55 Dose: 250 mls/hr ASSESSMENT/PLAN: 53 y/o gentleman with a PMH of HCV (treated and now undetectable), asthma, and HTN who presented with sob for 4 days but severely worsened this afternoon while he was watching tv. #JOCELYNE; Cr 1.4 (yesterday 1.0) -Held all nephrotoxic meds (Lisinopril, HCTZ) -IVf -will recheck BMP tonight #New onset CHF exacerbation -doubt asthma exacerbation given lack of wheezing or improvement with ventolin. -Received IV Lasix 40 mg IVP -Per cardio, will do echo as an outpatient; f/u further cardio recs -Trops neg x2, BNP normal -I/Os, daily weights #Hypertensive Urgency; Resolved. Will start on Amlo 5 QD. Hold home Lisinopril, HCTZ for now as Cr is elevated, 1.4. Repeat BP checks #Asthma; Cont #Pre-DM; Stable. Diet-controlled. #Arthritis of both knees; likely 2/2 obesity. Recommend to lose weight to reduce strain and back on knees. #Obesity; Diet/weight loss counseling #Prophylaxis DVT: early ambulation, SCDs. FEN -IVf -recheck lytes in AM -sodium-controlled diet Dispo -cont to monitor on tele -DC planning in AM ATTENDING PHYSICIAN STATEMENT I saw and evaluated the patient. I reviewed the resident's note and discussed the case with the resident. I agree with the resident's findings and plan as documented. SUBJECTIVE: OBJECTIVE: ASSESSMENT AND PLAN:
[2019-04-23 17:53] LABS: BLOOD UREA NITROGEN 24.8 mg/dL (7-18); CREATININE 1.2 mg/dL (0.55-1.3); POTASSIUM 3.8 mmol/L (3.5-5.1)
--- NOTE | 2019-04-23 18:27 | DS ---
Physical Exam: SUBJECTIVE: Patient seen and examined at bedside. No acute events overnight. OBJECTIVE: Vital Signs Period Temp Pulse Resp BP Sys/Hoyt Pulse Ox Last 24 Hr 97.6 F-98.8 F 60-82 18-20 108-147/70-92 93-97 PHYSICAL EXAM GENERAL: Awake, alert, and fully oriented, in no acute distress. HEENT: AT/NC. Moist mucus membranes. LUNGS: Breath sounds equal, clear to auscultation bilaterally. No wheezes, and no crackles. HEART: Regular rate and rhythm, normal S1 and S2 without murmur, rub or gallop. ABDOMEN: Soft, nontender, not distended, normoactive bowel sounds, no guarding, no rebound. LOWER EXTREMITIES: 2+ pulses, warm, well-perfused. No calf tenderness. trace to 1+ peripheral edema. NEUROLOGICAL: Normal speech. did not observe gait. PSYCHIATRIC: Cooperative. Good eye contact. Appropriate mood and affect. SKIN: Warm, dry. LABS Laboratory Results - last 24 hr 04/23/19 04/23/19 04/23/19 06:01 06:01 06:01 WBC 4.2 RBC 4.51 Hgb 14.2 Hct 40.9 MCV 90.7 MCH 31.5 MCHC 34.7 RDW 13.4 Plt Count 287 MPV 8.2 Absolute Neuts (auto) 1.6 Neutrophils % 39.4 L Lymphocytes % 44.5 H Monocytes % 11.4 H Eosinophils % 4.0 Basophils % 0.7 Nucleated RBC % 0 Sodium 138 Potassium 3.8 Chloride 102 Carbon Dioxide 30 Anion Gap 7 L BUN 25.7 H Creatinine 1.4 H Est GFR (CKD-EPI)AfAm 66.48 Est GFR (CKD-EPI)NonAf 57.36 Random Glucose 104 Hemoglobin A1c % 6.2 Calcium 8.8 Phosphorus 4.3 Magnesium 2.4 Total Bilirubin 0.5 AST 13 L ALT 26 Alkaline Phosphatase 59 Creatine Kinase 71 Troponin I < 0.02 Total Protein 7.7 Albumin 3.5 04/23/19 17:10 WBC RBC Hgb Hct MCV MCH MCHC RDW Plt Count MPV Absolute Neuts (auto) Neutrophils % Lymphocytes % Monocytes % Eosinophils % Basophils % Nucleated RBC % Sodium 138 Potassium 3.8 Chloride 102 Carbon Dioxide 30 Anion Gap 6 L BUN 24.8 H Creatinine 1.2 Est GFR (CKD-EPI)AfAm 80.10 Est GFR (CKD-EPI)NonAf 69.11 Random Glucose 93 Hemoglobin A1c % Calcium 9.0 Phosphorus Magnesium Total Bilirubin AST ALT Alkaline Phosphatase Creatine Kinase Troponin I Total Protein Albumin HOSPITAL COURSE: Date of Admission:04/22/19 53M with a PMH of HCV (treated and now undetectable), asthma, and HTN presented in the ED with worsening shortness of breath for 4 days admitted for hypertensive urgency. Initial BP was 190/102 and pt was given Lasix and Lisinopril with improvement in both symptoms and BP. EKG findings showed NSR with no significant ST-T changes, trops neg x2. He was evaluated by cardio with recommendation to have echocardiogram done as an outpatient. Pt's hospital stay was later complicated by JOCELYNE after which he was given IVf w/ discontinuation of Lisinopril and HCTZ. He was given Amlodipine for blood pressure control with good effect. Repeat BMP later showed improvement in Cr to normal level. Pt was subsequently discharged home and advised to continue taking Amlodipine for HTN. He was also advised to follow up with his PCP for repeat CMP (to assess kidney function) in 1 week as well as follow up with his process manufacturing engineer for echocardiogram. Date of Discharge: 04/23/19 Minutes to complete discharge: 35 Discharge Summary Reason For Visit: SOB, UNCONTROLLED HYPERTENSION, CHF Current Active Problems Arthritis of both knees (Chronic) [place] cardiac risk 10-20% in next 10 years (Chronic) HTN (hypertension) (Chronic) Obesity (BMI 30-39.9) (Chronic) Sedentary lifestyle (Chronic) Sleep apnea (Chronic) Spinal stenosis (Chronic) Condition: Improved - Instructions Diet, Activity, Other Instructions: You were seen in the hospital for complaints of shortness of breath. You were given a diuretic (water pill) which helped to alleviate your symptoms. Additionally, you were evaluated by the process manufacturing engineer with recommendation to follow up as an outpatient to have an echocardiogram done for further evaluation of your heart function. Your symptoms improved throughout your hospital stay. You are being discharged home. MEDICATIONS We have made the following changes to your medications: Please STOP taking Nifedipine, Lisinopril, and Hydrochlorothiazide for now. You will need to follow up with your PCP, Dr. Oscar Roldan, within 1 week. You will need a repeat CMP to assess your kidney function. Continue to drink water 1 -2 liter per day. Please START taking Amlodipine 5 mg once a day by mouth for hypertension (high blood pressure). starting tomorrow, check your blood pressure on a daily basis. You may continue taking the rest of your home medications as prescribed. RECOMMENDATIONS Please continue to stay hydrated and drink water. FOLLOW UP Please follow up with your primary care physician. Dr. Oscar Roldan, within 1 week. Please follow up with your process manufacturing engineer, Dr. Monterroso, in am to have an echocardiogram (ultrasound of the heart) as an outpatient. If you experience persistent shortness of breath, chest pain, difficulty breathing, fever/chills or other associated symptoms, please proceed to your nearest emergency room immediately. Referrals: Noman Monterroso MD [Staff Physician] - 1 Week Oscar Roldan MD [Staff Physician] - 1 Week Disposition: HOME - Home Medications Comprehensive Discharge Medication List: Ambulatory Orders Aspirin [Lo-Dose Aspirin EC] 81 mg PO DAILY 04/22/19 Centrum Adults Tablet 1 tab PO DAILY 04/22/19 Folic Acid 1 mg PO DAILY 04/22/19 Thiamine HCl [B-1] 100 mg PO DAILY 04/22/19 Amlodipine Besylate [Norvasc -] 5 mg PO DAILY #30 tablet 04/23/19 This patient is new to me today: Yes Date on this admission: 04/23/19 Emergency Visit: Yes ED Registration Date: 04/22/19 Care time: The patient presented to the Emergency Department on the above date and was hospitalized for further evaluation of their emergent condition. Critical Care patient: No - Discharge Referral Referred to [facility] Med P.C.: No ATTENDING PHYSICIAN STATEMENT I saw and evaluated the patient. I reviewed the resident's note and discussed the case with the resident. I agree with the resident's findings and plan as documented. SUBJECTIVE: OBJECTIVE: ASSESSMENT AND PLAN:
== END 2019-04-23 18:37 | disposition home or self-care (01) | DRG 194 ==
LOC: JER 21:15 → JERBED 04-22 00:07 → J4W 04-22 03:01
PROVIDERS: ADMIT Internal Medicine; ATTEND Internal Medicine
DX: I11.0 Hypertensive heart disease with heart failure (principal); I50.9 Heart failure, unspecified; N17.9 Acute kidney failure, unspecified; E66.9 Obesity, unspecified; Z68.39 Body mass index [BMI] 39.0-39.9, adult; I16.0 Hypertensive urgency; M48.00 Spinal stenosis, site unspecified; M17.0 Bilateral primary osteoarthritis of knee; M54.9 Dorsalgia, unspecified; J45.909 Unspecified asthma, uncomplicated; G47.30 Sleep apnea, unspecified; E78.5 Hyperlipidemia, unspecified
CPT/HCPCS: 36415; 71046-TC-FY; 80048; 80053; 80061; 82550; 83036; 83721; 83735; 83880; 84100; 84443; 84484; 85025; 85610; 90732; 93005; 93010; 99285-25; G0009

== ENCOUNTER 2019-10-28 18:51 | Inpatient (IN) | payer OTHER ==
--- NOTE | 2019-10-28 19:05 | PDOC ---
History of Present Illness - General Chief Complaint: Chest Pain Stated Complaint: CHEST PAIN - History of Present Illness Initial Comments: The pt is a 54M w/ a history of HTN, HCV (treated and now undetectable), asthma and recent EtOH binge drinking who presents for evaluation of chest pain and vomiting. The chest pain is left sided, intermittent pressure/sharp, non- radiating, non-exertional, and not made better or worse by anything he can identify. He states he has been drinking 3 12-packs of beer daily for 1 week s/ p a in the family. Today he also reports b/l head 'pressure/hotness' today that is b/l, posterior, gradual onset, and not exacerbated or alleviated by anything he can identify. Denies fevers/chills, diarrhea, dysuria, hematuria, or rash. Denies known trauma 10/28/19 19:05 Past History - Past Medical History Allergies/Adverse Reactions: Allergies Allergy/AdvReac Type Severity Reaction Status Date / Time shellfish derived Allergy Severe Verified 04/21/19 22:42 Home Medications: Ambulatory Orders Aspirin [Lo-Dose Aspirin EC] 81 mg PO DAILY 04/22/19 Centrum Adults Tablet 1 tab PO DAILY 04/22/19 Folic Acid 1 mg PO DAILY 04/22/19 Thiamine HCl [B-1] 100 mg PO DAILY 04/22/19 Amlodipine Besylate [Norvasc -] 5 mg PO DAILY #30 tablet 04/23/19 Asthma: Yes COPD: No HTN: Yes Hypercholesterolemia: Yes - Immunization History Immunization Up to Date: No - Psycho Social/Smoking Cessation Hx Smoking History: Never smoked Have you smoked in the past 12 months: No Information on smoking cessation initiated: No Hx Alcohol Use: No Drug/Substance Use Hx: No Substance Use Type: None Review of Systems - Review of Systems Able to Perform ROS?: Yes Comments:: GENERAL/CONSTITUTIONAL: No fever or chills. HEAD, EYES, EARS, NOSE AND THROAT: No change in vision. No change in hearing. No sore throat CARDIOVASCULAR: +CP, intermittent SOB RESPIRATORY: Denies cough, hemoptysis GASTROINTESTINAL: +N/V GENITOURINARY: No dysuria, frequency, or change in urination MUSCULOSKELETAL: No joint or muscle swelling or pain. No back pain SKIN: No rash NEUROLOGIC: No vertigo, loss of consciousness, or change in strength/sensation ENDOCRINE: No increased thirst. No abnormal weight change HEMATOLOGIC/LYMPHATIC: No anemia, easy bleeding, or history of blood clots ALLERGIC/IMMUNOLOGIC: No hives or skin allergy 10/28/19 19:05 Is the patient limited [place] proficient: No *Physical Exam - Vital Signs Last Vital Signs Temp Pulse Resp BP Pulse Ox 97.5 F L 113 H 18 171/116 H 98 10/28/19 18:57 10/28/19 18:57 10/28/19 18:57 10/28/19 18:57 10/28/19 18:57 - Physical Exam GENERAL: Awake, alert, and oriented to person/place/time, appears anxious HEAD: No signs of trauma, normocephalic, atraumatic EYES: PERRLA, EOMI, sclera anicteric, conjunctiva clear ENT: Hearing grossly normal, nares patent, oropharynx clear without exudates. No uvular deviation. Moist mucosa LUNGS: No distress, speaks in full sentences, clear to auscultation bilaterally HEART: Tachycardic rate and regular rhythm, normal S1 and S2, no murmurs appreciated, peripheral pulses normal and equal bilaterally ABDOMEN: Soft, nontender, normoactive bowel sounds. No guarding, no rebound EXTREMITIES: Normal inspection, Normal range of motion, no edema. No clubbing or cyanosis NEUROLOGICAL: Cranial nerves II through XII grossly intact. Normal speech, normal gait, no focal sensorimotor deficits. Tongue fasciculations noted and mild tremors of b/l hands SKIN: Warm, Dry 10/28/19 19:05 Procedures - Intubation Time of Intubation: 21:23 Intubation Method: orotracheal Blade used: Mac (3) Tube Size (Fr): 7.5 Medications: Succinylcholine, Versed Tube position confirmed by: Direct visualization, CO2 detector, Chest x-ray, Breath sounds Breath Sounds after Intubation: equal Intubation Complications: no complications Post Intubation Xray: Yes (CT) ED Treatment Course - LABORATORY CBC & Chemistry Diagram: 10/28/19 19:45 10/28/19 19:45 Medical Decision Making - Critical Care Time Total Critical Care Time (minutes): 60 Critical Care Statement: The care of this patient involved high complexity decision making to prevent further life threatening deterioration of the patient 's condition and/or to evaluate & treat vital organ system(s) failure or risk of failure. - Medical Decision Making The pt is a 54M w/ a history of HTN, HCV (treated and now undetectable), asthma and recent EtOH binge drinking who presents for evaluation of chest pain and vomiting. Consider ACS, PNA, EtOH withdrawal, alcoholic gastritis ED Course Labs sent ECG CT head, c-spine, CAP 10/28/19 20:16 ECG w/ poor baseline; sinus tachycardia; HR 107; QTc 477; no axis deviation; no KATHERINE Pt noted to be more tremulous despite Ativan 2mg, 4mg, and 4mg doses Pt intubated for airway protection due to increasing lethargy/nausea. Given Succinylcholine 100mg and Versed 4mg. 7.5 ETT, 22cm at the lip at 2123 Pt started on a Versed and Propofol gtt Nagy placed No leukocytosis No anemia Lytes unremarkable Trop I neg LFTs wnl No JOCELYNE UA w/o evidence of UTI 10/28/19 22:30 Plan for admission to ICU, pt signed out to ICU provider Pt to be admitted under [facility] Admitting -Microblog sent, awaiting reply 10/28/19 22:33 Pt signed out to [facility] Admitting 10/28/19 22:46 10/28/19 22:54 Discharge - Discharge Information Problems reviewed: Yes Clinical Impression/Diagnosis: Chest pain Qualifiers: Chest pain type: unspecified Qualified Code(s): R07.9 - Chest pain, unspecified Alcohol withdrawal Qualifiers: Complication of substance-induced condition: with unspecified complication Qualified Code(s): F10.239 - Alcohol dependence with withdrawal, unspecified Condition: Critical - Admission Yes - Follow up/Referral - Patient Discharge Instructions - Post Discharge Activity
[2019-10-28] MEDS ORDERED: LACTATED RINGERS SOLUTION 1000 ML INFUS.BAG IV ONE (19:31)
[2019-10-28] MEDS ORDERED: FOLIC ACID INJECTION - 1 MG, THIAMINE HCL 100 MG, MULTIVIT INJECTION ADULT 10 ML in SOD... IVPB ONE (19:31)
[2019-10-28] MEDS ORDERED: LORazepam 2 MG/ML SDV VIAL ONE ×4 (19:50→21:25)
[2019-10-28 19:58] LABS: BASO % 0.9 % (0-2.0); EOS % 0.4 % (0-4.5); HEMATOCRIT 45.3 % (35.4-49); HEMOGLOBIN 15.9 GM/dL (11.7-16.9); LYMPH % 59.1 % (8-40); MCH 31.6 pg (25.7-33.7); MEAN CELL VOLUME 90.4 fl (80-96); MEAN PLT VOLUME 7.2 fl (7.5-11.1); NEUT % 32.6 % (42.8-82.8); PH,URINE 6.5 (5.0-8.0); PLATELET COUNT 444 K/MM3 (134-434); RBC 5.01 M/mm3 (4.00-5.60); RDW 13.1 % (11.9-15.9); URINE APPEARANCE CLOUDY; URINE BILIRUBIN NEGATIVE (NEGATIVE); URINE COLOR YELLOW; URINE GLUCOSE (UA) NEGATIVE (NEGATIVE); URINE KETONE NEGATIVE (NEGATIVE); URINE LEUK ESTERASE NEGATIVE (NEGATIVE); URINE NITRITE NEGATIVE (NEGATIVE); URINE PROTEIN TRACE (NEGATIVE); URINE UROBILINOGEN 0.2 mg/dL (0.2-1.0); WHITE BLOOD COUNT 6.1 K/mm3 (4.0-10.0)
--- NOTE | 2019-10-28 20:11 | PDOC ---
Documentation entered by Melly Pereira SCRIBE, acting as scribe for Bertha Giles DO. Bertha Giles DO: This documentation has been prepared by the viry, Melly Pereira SCRIBE, under my direction and personally reviewed by me in its entirety. I confirm that the documentation accurately reflects all work , treatment, procedures, and medical decision making performed by me. Attending Attestation - Resident Resident Name: Ernie Coffey - ED Attending Attestation I have performed the following: I have examined & evaluated the patient, The case was reviewed & discussed with the resident, I agree w/resident's findings & plan - HPI HPI: 10/28/19 19:54 The patient is a 54-year-old male with a past medical history significant for HTN who presents to the emergency department with a headache, epigastric pain, and vomiting. The patient reports recent alcohol binging (3, 12 packs of beer) secondary to a in the family, currently presents with vomiting, epigastric pain, and a headache. Denies trauma. - Physicial Exam PE: 10/28/19 19:54 Agree with the resident. - Medical Decision Making 10/28/19 20:10 54-year-old male with a recent alcohol binge complaining of vomiting and epigastric pain Plan for CT scan of the chest abdomen pelvis as well as Head/cervical spine due to posterior headache IV fluid, Ativan 2 mg for acute withdrawal symptoms and antacids Will admit due to complaints of chest pain and alcohol withdrawal pending CT scan results 10/28/19 20:12
[2019-10-28 20:17] LABS: INR 1.03 (0.83-1.09); PROTHROMBIN TIME (PATIENT) 12.2 SEC (9.7-13.0)
[2019-10-28 20:19] LABS: ACTIVATED PTT 33.1 SECONDS (25.2-36.5)
[2019-10-28 20:20] LABS: MAGNESIUM 2.4 mg/dL (1.8-2.4)
[2019-10-28 20:29] LABS: ALBUMIN 3.9 g/dl (3.4-5.0); ALK PHOS 86 U/L (45-117); ANION GAP 10 MMOL/L (8-16); BILIRUBIN,TOTAL 0.2 mg/dL (0.2-1); BLOOD UREA NITROGEN 14.5 mg/dL (7-18); CALCIUM 9.4 mg/dL (8.5-10.1); CHLORIDE 101 mmol/L (98-107); CO2 25 mmol/L (21-32); CREATININE 0.9 mg/dL (0.55-1.3); GLUCOSE,RANDOM 115 mg/dL (74-106); POTASSIUM 3.8 mmol/L (3.5-5.1); SGOT/AST 61 U/L (15-37); SGPT/ALT 71 U/L (13-61); SODIUM 136 mmol/L (136-145); TOT PROT 9.1 g/dl (6.4-8.2)
[2019-10-28] MEDS ORDERED: FAMOTIDINE 20 MG/50 ML IVPB 20 MG/50 ML MG IVPB ONE (20:56)
[2019-10-28] MEDS ORDERED: RAPID SEQUENCE INTUBATION KIT NR ONE (21:12)
[2019-10-28] MEDS ORDERED: MIDAZOLAM HCL 2 MG/2 ML SINGLE DOSE VIAL ONE (21:16)
[2019-10-28] MEDS ORDERED: MIDAZOLAM IN 0.9 % SOD.CHLORID 1 MG/1 ML PLAST..BAG ONE (21:24)
[2019-10-28] MEDS ORDERED: ROCURONIUM BROMIDE 50 MG/5 ML VIAL IV ONE (22:05)
[2019-10-28] MEDS ORDERED: PROPOFOL 20 ML ONE (22:10)
[2019-10-28] MEDS ORDERED: PROPOFOL 1,000,000 MCG/100 ML VIAL ONE (22:10)
[2019-10-28] MEDS ORDERED: MIDAZOLAM IN 0.9 % SOD.CHLORID 100 MG/100 ML PLAST..BAG IVPB SCH ×2 (22:15→22:30)
[2019-10-28] MEDS ORDERED: PROPOFOL 1,000,000 MCG/100 ML VIAL IVPB SCH (22:15)
[2019-10-28 22:37] LABS: ALLENS TEST POSITIVE; ARTERIAL BLD GAS O2 SATURATION 99.1 % (95-98); ARTERIAL BLOOD GAS BASE EXCESS -0.8 meq/l (-2-2); ARTERIAL BLOOD GAS PCO2 44.7 mmHg (35-45); ARTERIAL BLOOD GAS PO2 225 mmHg (80-100); ARTERIAL BLOOD GAS pH 7.36 (7.35-7.45); CARBOXYHEMOGLOBIN 1.1 % (0-2)
[2019-10-28] MEDS: PROPOFOL 1,000,000 MCG/100 ML VIAL IVPB SCH (22:37)
--- NOTE | 2019-10-28 23:13 | CONSULT ---
Consult Consult Specialty:: Pulm/CCM Reason for Consultation:: ETOH withdrawal - History of Present Illness Chief Complaint: headache, chest pain, nausea History of Present Illness: Briefly Mr Newman is a 54 y/o man with alcohol abuse disorder, previous episode of ETOH withdrawal complicated by seizure who has been binge drinking for last few weeks after a in the family. He was consuming as much as 3 x 12 pack of beer per day. He presents to emergency room with RODRIGUEZ, nausea, non radiating chest pain, and tremor. He was afebrile, hypertensive 170/110, and appeared to be in withdrawal. He received multiple doses of ativan, underwent CT of Chest, AP to r/o dissection, and head to r/o acute bleed , both negative. He was intubated for airway protection, and started on propofol gtt. Now being transferred to ICU for further management. - History Source History Provided By: Family Member, Medical Record - Past Medical History Cardio/Vascular: Yes: HTN Pulmonary: Yes: Asthma, Sleep Apnea (r/o; snores; takes an afternoon nap; obese ; sedentary) - Alcohol/Substance Use Hx Alcohol Use: Yes Number of Drinks Daily: 10 History of Substance Use: reports: None - Smoking History Smoking history: Never smoked Have you smoked in the past 12 months: No - Social History Usual Living Arrangement: With Spouse ADL: Independent Home Medications - Allergies Allergies/Adverse Reactions: Allergies Allergy/AdvReac Type Severity Reaction Status Date / Time shellfish derived Allergy Severe Verified 04/21/19 22:42 - Home Medications Home Medications: Ambulatory Orders Aspirin [Lo-Dose Aspirin EC] 81 mg PO DAILY 04/22/19 Centrum Adults Tablet 1 tab PO DAILY 04/22/19 Folic Acid 1 mg PO DAILY 04/22/19 Thiamine HCl [B-1] 100 mg PO DAILY 04/22/19 Amlodipine Besylate [Norvasc -] 5 mg PO DAILY #30 tablet 04/23/19 Family Medical History Family History: Unable to Obtain (secondary to pt clinical condition) Review of Systems Unable to obtain ROS, reason: intubated Physical Exam Vital Signs: Vital Signs Temperature 97.5 F L 10/28/19 18:57 Pulse Rate 97 H 10/28/19 22:52 Respiratory Rate 12 10/28/19 22:52 Blood Pressure 118/83 10/28/19 22:52 O2 Sat by Pulse Oximetry (%) 100 10/28/19 22:52 Constitutional: Yes: Well Nourished Eyes: Yes: Conjunctiva Clear, PERRL. No: Sclera Icterus HENT: Yes: Atraumatic, Normocephalic Neck: Yes: Supple, Trachea Midline Cardiovascular: Yes: Regular Rate and Rhythm. No: Murmur Respiratory: Yes: Intubated, Mechanically Ventilated, Rhonchi (scattered bilaterally) Gastrointestinal: Yes: Normal Bowel Sounds ...Rectal Exam: Yes: WNL Renal/: Yes: WNL Breast(s): Yes: WNL Musculoskeletal: Yes: WNL Extremities: Yes: WNL Edema: No Peripheral Pulses WNL: Yes Integumentary: Yes: WNL Neurological: Yes: Unresponsive (deeply sedated) Labs: CBC, BMP 10/28/19 19:45 10/28/19 19:45 Imaging - Results X-ray: Image Reviewed Cat Scan: Image Reviewed (No obvious infarct or bleed on CTH. No obvious dissection on CTA chest/AP) Assessment/Plan A/ 54 y. o man with hx of ETOH withdrawal now presenting with same, intubated in ED for airway protection in setting of escalating doses of benzodiazapine. P/ Pulm;Intubated for airway protection -cont full mech ventilation -sedated for vent synchroncy -PS trials once withdrawal under better control -LTVV ETOH withdrawal: insetting of acute binge drinking, hx of withdrawal sz -propofol gtt overnight to maintain airway -would cont versed pushes as well -will load with phenobarb to minimize benzo dosing and fascilitate extubation -Thiamine/Folate/MVI HTH: -now undercontrol -restart home meds as needed Prophy: -Famotidine, SQH FULL Code Pt is critically ill, required ICU management Critical Care time spent evaluating patient and forumulating plan, not including otherwise billable procedures 45min Nupur Woodall ACNP [id number]
[2019-10-29] MEDS ORDERED: PIPERACILLIN/TAZOB 3.375 GM 3.375 GM in DEXTROSE 5%-WATER - 50 ML IVPB ONE (00:05)
[2019-10-29] MEDS ORDERED: PROPOFOL 1,000,000 MCG/100 ML VIAL IVPB SCH (00:30)
[2019-10-29] MEDS ORDERED: PIPERACILLIN/TAZOBACTAM 3.375 GM VIAL IVPB ONE (02:01)
[2019-10-29] MEDS ORDERED: DEXTROSE 5%-WATER - 50 ML IVPB ONE (02:01)
[2019-10-29 03:05] LABS: COCAINE, UR NEGATIVE ng/ml (CUTOFF=300); METHADONE, UR NEGATIVE ng/ml (CUTOFF=300); OPIATES, URI NEGATIVE ng/ml (CUTOFF=300); PHENCYCLIDINE,URINE NEGATIVE ng/ml (CUTOFF=25); URINE AMPHETAMINES NEGATIVE ng/ml (CUTOFF=500); URINE BARBITURATES NEGATIVE ng/ml (CUTOFF=200)
[2019-10-29 03:06] LABS: URINE BENZODIAZEPINES POSITIVE ng/ml (CUTOFF=200)
--- NOTE | 2019-10-29 03:15 | PN ---
Teaching Attending Note Name of Resident: Fernando Bucio ATTENDING PHYSICIAN STATEMENT I saw and evaluated the patient. I reviewed the resident's note and discussed the case with the resident. I agree with the resident's findings and plan as documented. SUBJECTIVE: 54-year-old male with a history of EtOH abuse, previous seizure episode related to EtOH, binge drinking for the last several weeks after a in the family. Patient was consuming up to 312 packs of beer per day presented complaining of chest pain, tremors, extreme nausea found to be tremulous, hypertensive, tachycardic. Was intubated in the emergency room for airway protection, started on propofol and midazolam drips. Patient was transferred to the ICU. OBJECTIVE: Last Vital Signs Temp Pulse Resp BP Pulse Ox 98.5 F 102 H 16 106/88 100 10/29/19 00:00 10/29/19 02:00 10/29/19 02:00 10/29/19 02:00 10/28/19 23:45 On physical exam patient was a well-built man intubated and sedated. ET tube in place, 2 peripheral lines in upper extremities. Lungs were clear to auscultation bilaterally, abdomen soft, nontender with good bowel sounds. Skin with no rashes. Abnormal Lab Results 10/28/19 10/28/19 10/28/19 19:45 19:45 19:45 Plt Count 444 H D MPV 7.2 L D Neutrophils % 32.6 L Lymphocytes % 59.1 H D ABG pO2 at Pt Temp ABG O2 Sat (Measured) Random Glucose 115 H AST 61 H ALT 71 H Total Protein 9.1 H Ur Specific [place] Benzodiazepines Screen Alcohol, Quantitative 212.5 H 10/28/19 10/28/19 10/29/19 19:45 22:18 01:01 Plt Count MPV Neutrophils % Lymphocytes % ABG pO2 at Pt Temp 225 H ABG O2 Sat (Measured) 99.1 H Random Glucose AST ALT Total Protein Ur Specific [place] 1.003 L Benzodiazepines Screen Positive A* Alcohol, Quantitative Chest CT was negative for aortic dissection, head CT was negative for any acute bleed. EKG showed sinus tachycardia ASSESSMENT AND PLAN: Critically ill 54-year-old man with severe EtOH withdrawal requiring intubation for airway protection and likely impending DTs. Currently intubated and sedated in ICU Maintain on mechanical ventilation ABG and adjust vent settings accordingly Continue midazolam and propofol drips for now Check electrolytes and replete PRN Thiamine, folate, multivitamin IV fluid hydration NG tube and start tube feedings Protonix IV push for GI prophylaxis BGM's and insulin coverage Troponins negative x2 Liver ultrasound Weaning trials #Thrombocytosissuspect reactive #Transaminitissuspect likely secondary to EtOH abuse DVT prophylaxisheparin subcutaneously 35 minutes spent on this critically ill patient
--- NOTE | 2019-10-29 05:02 | HP ---
CHIEF COMPLAINT: PCP: HISTORY OF PRESENT ILLNESS: Pt is a 54 y/o M with PMH HTN, HCV (treated and now undetectable), asthma and recent EtOH binge who presented for evaluation of chest pain and vomiting. Reportedly, pt had L sided chest pain intermittent sharp nonexertional pain. He 's been drinking copiously for the last week. In ED he seems to have been withdrawing quite badly as he required numerous rounds of medication, which were unsuccessful in controlling his symptoms. He was ultimately sedated and intubated as he was not protecting his airway. At the time of my visit, pt was intubated, sedated, and unable to give history. ER course was notable for: (1) as above (2) (3) Recent Travel: PAST MEDICAL HISTORY: HTN, HCV (treated and now undetectable), asthma and recent EtOH binge PAST SURGICAL HISTORY: Social History: Smoking: Alcohol: Drugs: Allergies shellfish derived Allergy (Severe, Verified 04/21/19 22:42) HOME MEDICATIONS: Home Medications Medication Instructions Recorded Aspirin [Lo-Dose Aspirin EC] 81 mg PO DAILY 04/22/19 Centrum Adults Tablet 1 tab PO DAILY 04/22/19 Folic Acid 1 mg PO DAILY 04/22/19 Thiamine HCl [B-1] 100 mg PO DAILY 04/22/19 Amlodipine Besylate [Norvasc -] 5 mg PO DAILY #30 tablet 04/23/19 REVIEW OF SYSTEMS CONSTITUTIONAL: Absent: fever, chills, diaphoresis, generalized weakness, malaise, loss of appetite, weight change HEENT: Absent: rhinorrhea, nasal congestion, throat pain, throat swelling, difficulty swallowing, mouth swelling, ear pain, eye pain, visual changes CARDIOVASCULAR: Absent: chest pain, syncope, palpitations, irregular heart rate, lightheadedness , peripheral edema RESPIRATORY: Absent: cough, shortness of breath, dyspnea with exertion, orthopnea, wheezing, stridor, hemoptysis GASTROINTESTINAL: Absent: abdominal pain, abdominal distension, nausea, vomiting, diarrhea, constipation, melena, hematochezia GENITOURINARY: Absent: dysuria, frequency, urgency, hesitancy, hematuria, flank pain, genital pain MUSCULOSKELETAL: Absent: myalgia, arthralgia, joint swelling, back pain, neck pain SKIN: Absent: rash, itching, pallor HEMATOLOGIC/IMMUNOLOGIC: Absent: easy bleeding, easy bruising, lymphadenopathy, frequent infections ENDOCRINE: Absent: unexplained weight gain, unexplained weight loss, heat intolerance, cold intolerance NEUROLOGIC: Absent: headache, focal weakness or paresthesias, dizziness, unsteady gait, seizure, mental status changes, bladder or bowel incontinence PSYCHIATRIC: anxiety Absent: , depression, suicidal or homicidal ideation, hallucinations. PHYSICAL EXAMINATION Vital Signs - 24 hr 10/28/19 10/28/19 10/28/19 18:57 20:59 21:20 Temperature 97.5 F L Pulse Rate 113 H 125 H Pulse Rate [ 125 H Right Brachial] Respiratory 18 12 12 Rate Blood Pressure 171/116 H Blood Pressure 137/76 [Right Arm] O2 Sat by Pulse 98 100 Oximetry (%) 10/28/19 10/28/19 10/28/19 22:00 22:52 23:45 Temperature 98.5 F Pulse Rate 103 H Pulse Rate [ 110 H 97 H Right Brachial] Respiratory 12 12 13 Rate Blood Pressure 96/66 Blood Pressure 159/87 118/83 [Right Arm] O2 Sat by Pulse 100 100 100 Oximetry (%) 10/29/19 10/29/19 10/29/19 00:00 00:36 02:00 Temperature 98.5 F Pulse Rate 100 H 102 H Pulse Rate [ Right Brachial] Respiratory 14 14 16 Rate Blood Pressure 96/66 106/88 Blood Pressure [Right Arm] O2 Sat by Pulse Oximetry (%) 10/29/19 04:00 Temperature 98.6 F Pulse Rate 101 H Pulse Rate [ Right Brachial] Respiratory 18 Rate Blood Pressure 115/82 Blood Pressure [Right Arm] O2 Sat by Pulse Oximetry (%) Gen: Intubated and sedated HEENT: Atraumatic, ET tube in place Cardio:rrr, normal s1s2, no mrg Pulm: cta b/l Abd: obese, nondistended Laboratory Results - last 24 hr 10/28/19 10/28/19 10/28/19 19:45 19:45 19:45 WBC 6.1 RBC 5.01 Hgb 15.9 Hct 45.3 MCV 90.4 MCH 31.6 MCHC 35.0 RDW 13.1 Plt Count 444 H D MPV 7.2 L D Absolute Neuts (auto) 2.0 Neutrophils % 32.6 L Lymphocytes % 59.1 H D Monocytes % 7.0 Eosinophils % 0.4 D Basophils % 0.9 Nucleated RBC % 0 PT with INR 12.20 INR 1.03 PTT (Actin FS) 33.1 Anticoagulation Therapy Puncture Site ABG pH ABG pCO2 at Pt Temp ABG pO2 at Pt Temp ABG HCO3 ABG O2 Sat (Measured) ABG O2 Content ABG Base Excess Hugo Test Carboxyhemoglobin Methemoglobin O2 Delivery Device Oxygen Flow Rate Vent Mode Vent Rate Mechanical Rate PEEP Pressure Support Vent Sodium 136 Potassium 3.8 Chloride 101 Carbon Dioxide 25 Anion Gap 10 BUN 14.5 Creatinine 0.9 Est GFR (CKD-EPI)AfAm 112.62 Est GFR (CKD-EPI)NonAf 97.17 Random Glucose 115 H Calcium 9.4 Magnesium Total Bilirubin 0.2 AST 61 H ALT 71 H Alkaline Phosphatase 86 Creatine Kinase Troponin I < 0.02 Total Protein 9.1 H Albumin 3.9 Lipase Urine Color Urine Appearance Urine pH Ur Specific [place] Urine Protein Urine Glucose (UA) Urine Ketones Urine Blood Urine Nitrite Urine Bilirubin Urine Urobilinogen Ur Leukocyte Esterase Stool Occult Blood Opiates Screen Methadone Screen Barbiturate Screen Phencyclidine Screen Ur Amphetamines Screen MDMA (Ecstasy) Screen Benzodiazepines Screen Cocaine Screen U Marijuana (THC) Screen Alcohol, Quantitative 10/28/19 10/28/19 10/28/19 19:45 19:45 19:45 WBC RBC Hgb Hct MCV MCH MCHC RDW Plt Count MPV Absolute Neuts (auto) Neutrophils % Lymphocytes % Monocytes % Eosinophils % Basophils % Nucleated RBC % PT with INR INR PTT (Actin FS) Anticoagulation Therapy Puncture Site ABG pH ABG pCO2 at Pt Temp ABG pO2 at Pt Temp ABG HCO3 ABG O2 Sat (Measured) ABG O2 Content ABG Base Excess Hugo Test Carboxyhemoglobin Methemoglobin O2 Delivery Device Oxygen Flow Rate Vent Mode Vent Rate Mechanical Rate PEEP Pressure Support Vent Sodium Potassium Chloride Carbon Dioxide Anion Gap BUN Creatinine Est GFR (CKD-EPI)AfAm Est GFR (CKD-EPI)NonAf Random Glucose Calcium Magnesium 2.4 Total Bilirubin AST ALT Alkaline Phosphatase Creatine Kinase Troponin I Total Protein Albumin Lipase 124 Urine Color Yellow Urine Appearance Cloudy Urine pH 6.5 Ur Specific [place] 1.003 L Urine Protein Trace Urine Glucose (UA) Negative Urine Ketones Negative Urine Blood Negative Urine Nitrite Negative Urine Bilirubin Negative Urine Urobilinogen 0.2 Ur Leukocyte Esterase Negative Stool Occult Blood Negative Opiates Screen Methadone Screen Barbiturate Screen Phencyclidine Screen Ur Amphetamines Screen MDMA (Ecstasy) Screen Benzodiazepines Screen Cocaine Screen U Marijuana (THC) Screen Alcohol, Quantitative 212.5 H 10/28/19 10/29/19 10/29/19 22:18 01:01 01:15 WBC RBC Hgb Hct MCV MCH MCHC RDW Plt Count MPV Absolute Neuts (auto) Neutrophils % Lymphocytes % Monocytes % Eosinophils % Basophils % Nucleated RBC % PT with INR INR PTT (Actin FS) Anticoagulation Therapy No Result Required. Puncture Site Right radial ABG pH 7.36 ABG pCO2 at Pt Temp 44.7 ABG pO2 at Pt Temp 225 H ABG HCO3 24.4 ABG O2 Sat (Measured) 99.1 H ABG O2 Content 20.1 ABG Base Excess -0.8 Hugo Test Positive Carboxyhemoglobin 1.1 Methemoglobin 1.1 O2 Delivery Device Mech vent Oxygen Flow Rate 100 Vent Mode A/c Vent Rate 12 Mechanical Rate No Result Required. PEEP 5.0 Pressure Support Vent 500/121 Sodium Potassium Chloride Carbon Dioxide Anion Gap BUN Creatinine Est GFR (CKD-EPI)AfAm Est GFR (CKD-EPI)NonAf Random Glucose Calcium Magnesium Total Bilirubin AST ALT Alkaline Phosphatase Creatine Kinase 112 Troponin I < 0.02 Total Protein Albumin Lipase Urine Color Urine Appearance Urine pH Ur Specific [place] Urine Protein Urine Glucose (UA) Urine Ketones Urine Blood Urine Nitrite Urine Bilirubin Urine Urobilinogen Ur Leukocyte Esterase Stool Occult Blood Opiates Screen Negative Methadone Screen Negative Barbiturate Screen Negative Phencyclidine Screen Negative Ur Amphetamines Screen Negative MDMA (Ecstasy) Screen Negative Benzodiazepines Screen Positive A* Cocaine Screen Negative U Marijuana (THC) Screen Negative Alcohol, Quantitative ASSESSMENT/PLAN: Pt is a 54 y/o M with HTN, HCV (treated and now undetectable), asthma and recent EtOH binge who presented with chest pain. He was intubated in ED for failure to protect his airway. Admit to ICU EtOH -level > 200 in ED -was severly tremulous and agitated requiring intubation -monitor. -receiving midazolam and propofol CP -initial EKG with no ST elevations -Trop neg x 2 HTN -BP well controlled -May need to hold off on BP meds while pt receives sedative agents Replete lytes prn Weaning trials once status is better controlled Visit type - Emergency Visit Emergency Visit: Yes ED Registration Date: 10/28/19 Care time: The patient presented to the Emergency Department on the above date and was hospitalized for further evaluation of their emergent condition. - New Patient This patient is new to me today: Yes Date on this admission: 10/29/19 - Critical Care Critical Care patient: No ATTENDING PHYSICIAN STATEMENT I saw and evaluated the patient. I reviewed the resident's note and discussed the case with the resident. I agree with the resident's findings and plan as documented. SUBJECTIVE: OBJECTIVE: ASSESSMENT AND PLAN:
[2019-10-29] MEDS: HEPARIN NA (PORCINE) 5,000 UNITS/ML 1ML VIAL SQ SCH ×3 (05:42→23:49)
[2019-10-29] MEDS ORDERED: PHENobarbital SODIUM 130 MG/1 ML VIAL IVPB ONE (06:00)
[2019-10-29 06:34] LABS: BASO % 0.5 % (0-2.0); HEMATOCRIT 40.8 % (35.4-49); HEMOGLOBIN 14.3 GM/dL (11.7-16.9); LYMPH % 20.7 % (8-40); MCH 31.6 pg (25.7-33.7); MCHC 34.9 g/dl (32.0-35.9); MEAN CELL VOLUME 90.4 fl (80-96); MEAN PLT VOLUME 7.1 fl (7.5-11.1); NEUT % 71.8 % (42.8-82.8); PLATELET COUNT 380 K/MM3 (134-434); RBC 4.51 M/mm3 (4.00-5.60); RDW 13.2 % (11.9-15.9); WHITE BLOOD COUNT 5.5 K/mm3 (4.0-10.0)
[2019-10-29 06:43] LABS: INR 1.14 (0.83-1.09); PROTHROMBIN TIME (PATIENT) 13.5 SEC (9.7-13.0)
[2019-10-29 06:45] LABS: ALBUMIN 3.5 g/dl (3.4-5.0); BILIRUBIN,TOTAL 0.3 mg/dL (0.2-1); BLOOD UREA NITROGEN 19.3 mg/dL (7-18); CREATININE 1.1 mg/dL (0.55-1.3); MAGNESIUM 2.2 mg/dL (1.8-2.4); PHOSPHOROUS 4.3 mg/dL (2.5-4.9); POTASSIUM 4.5 mmol/L (3.5-5.1); TOT PROT 7.9 g/dl (6.4-8.2)
[2019-10-29 06:46] LABS: ACTIVATED PTT 28.1 SECONDS (25.2-36.5)
[2019-10-29] MEDS: PROPOFOL 1,000,000 MCG/100 ML VIAL IVPB SCH (06:46)
[2019-10-29] MEDS: PHENobarbital SODIUM 65 MG/1 ML VIAL IVPUSH PRN ×3 (08:43→16:54)
[2019-10-29] MEDS: FAMOTIDINE 20 MG/50 ML IVPB 20 MG/50 ML MG IVPB SCH (10:37)
--- NOTE | 2019-10-29 10:52 | PN ---
Progress Note (short form) - Note Progress Note: Pulm/CCM Patient seen and examined in ICU. S/p extubation, to 2 L via NC Objective: No complains of SOB, tolerating 2 L FiO2 via NC well. CBC, BMP 10/29/19 05:55 10/29/19 05:55 Vital Signs Last Vital Signs Temp Pulse Resp BP Pulse Ox 98.6 F 105 H 22 H 138/101 H 100 10/29/19 04:00 10/29/19 08:14 10/29/19 08:14 10/29/19 08:00 10/29/19 08:14 Home Medication List Medication Instructions Recorded Confirmed Type Aspirin [Lo-Dose Aspirin EC] 81 mg PO DAILY 04/22/19 04/22/19 History Centrum Adults Tablet 1 tab PO DAILY 04/22/19 04/23/19 History Folic Acid 1 mg PO DAILY 04/22/19 04/22/19 History Thiamine HCl [B-1] 100 mg PO DAILY 04/22/19 04/22/19 History Active Medications Active Medications Chlorhexidine Gluconate (Hibiclens For Decolonization -) 1 applic TP HS [facility]IA[facility] Heparin Sodium (Porcine) (Heparin -) 5,000 unit SQ TID [facility] Last Admin: 10/29/19 05:42 Dose: 5,000 unit Propofol (Diprivan -) 1,000,000 mcg in 100 mls @ 12.574 mls/hr IVPB TITR [facility]; Protocol Last Admin: 10/29/19 06:46 Dose: 50 mcg/kg/min, 31.434 mls/hr Midazolam HCl (Midazolam 100mg/100ml-0.9%Nacl) 100 mg in 100 mls @ 10 mls/hr IVPB TITR [facility]; Protocol Stop: 10/29/19 22:14 Last Infusion: 10/29/19 00:18 Dose: 2 mg/hr, 2 mls/hr Famotidine/Sodium Chloride (Pepcid 20 Mg Premixed Ivpb -) 20 mg in 50 mls @ 100 mls/hr IVPB DAILY [facility] Last Admin: 10/29/19 10:37 Dose: 100 mls/hr Folic Acid 1 mg/ Thiamine HCl 100 mg/ Multivitamins/Minerals 10 ml/ Sodium Chloride 1,000 mls @ 125 mls/hr IVPB Q24H [facility] Propofol (Diprivan -) 1,000,000 mcg in 100 mls @ 6.287 mls/hr IVPB TITR [facility]; Protocol Last Admin: 10/29/19 01:27 Dose: 50 mcg/kg/min, 31.434 mls/hr Mupirocin (Bactroban Ointment (For Decolonization) -) 1 applic NS BID [facility] Stop: 11/03/19 09:59 Phenobarbital (Phenobarbital Injection -) 130 mg IVPUSH Q2H PRN PRN Reason: WITHDRAWAL(CONT SUBST) Last Admin: 10/29/19 08:43 Dose: 130 mg Thiamine HCl (Vitamin B1 -) 100 mg PO DAILY [facility] Gen: awake, alert, oriented x3 CV: Sinus tach Pulm: clear bilaterally Abd: normoactive BS, nontender Ext: trace edema bilateral LE Neuro: calm, bilateral UE tremors ASSESSMENT/PLAN Acute hypoxic respiratory failure 2/2 poor airway protection Alcohol withdrawal (Acute) Asthma Chest pain (Acute) Arthritis of both knees (Chronic) Back pain (Chronic) HTN (hypertension) (Chronic) Obesity (BMI 30-39.9) (Chronic) Sleep apnea (Chronic) Spinal stenosis (Chronic) -Continue Ativan and Phenobarbital for alcohol withdrawals -Thiamine and folic acid daily -S/p extubation -FiO2 to maintain pulse ox >95% -Incentive spirometry -Heparin for DVT ppx -D/c gretel Benton ACNP-BC
[2019-10-29] MEDS: THIAMINE HCL 100 MG TABLET (FP) PO SCH (11:00)
[2019-10-29] MEDS: MUPIROCIN 2% TOPICAL OINTMENT FOR DECOLONIZATION NS SCH ×2 (15:14→23:48)
[2019-10-29] MEDS ORDERED: cloNIDine HCL 0.1 MG TABLET PO ONE (16:58)
[2019-10-29] MEDS: FOLIC ACID INJECTION - 1 MG, THIAMINE HCL 100 MG, MULTIVIT INJECTION ADULT 10 ML in SOD... IVPB SCH (21:21)
[2019-10-29] MEDS ORDERED: CHLORHEXIDINE GLUCONATE 4% CLEANSER FOR DECOLONIZATION TP SCH (22:00)
[2019-10-30] MEDS: HEPARIN NA (PORCINE) 5,000 UNITS/ML 1ML VIAL SQ SCH ×2 (05:40→13:26)
[2019-10-30] MEDS: chlordiazePOXIDE HCL 10 MG CAPSULE PO SCH ×2 (08:28→13:27)
[2019-10-30] MEDS: THIAMINE HCL 100 MG TABLET (FP) PO SCH (09:02)
[2019-10-30] MEDS: FAMOTIDINE 20 MG/50 ML IVPB 20 MG/50 ML MG IVPB SCH (09:02)
[2019-10-30] MEDS: LISINOPRIL 20 MG TABLET (FP) PO SCH (09:05)
[2019-10-30] MEDS: MULTIVITAMINS (DAILY MVI) TABLET (FP) PO SCH (09:05)
[2019-10-30] MEDS: amLODIPine BESYLATE 10 MG TABLET (FP) PO SCH (09:05)
[2019-10-30] MEDS: HYDROCHLOROTHIAZIDE 12.5 MG CAPSULE (FP) PO SCH (09:06)
[2019-10-30] MEDS: ASPIRIN COATED 81 MG TABLET.EC PO SCH (09:09)
[2019-10-30 09:29] LABS: HEMATOCRIT 40.5 % (35.4-49); HEMOGLOBIN 14.4 GM/dL (11.7-16.9); MCH 31.8 pg (25.7-33.7); MCHC 35.5 g/dl (32.0-35.9); MEAN CELL VOLUME 89.6 fl (80-96); MEAN PLT VOLUME 7.2 fl (7.5-11.1); PLATELET COUNT 273 K/MM3 (134-434); RBC 4.52 M/mm3 (4.00-5.60); RDW 13.1 % (11.9-15.9); WHITE BLOOD COUNT 5.4 K/mm3 (4.0-10.0)
--- NOTE | 2019-10-30 09:50 | EKG ---
Test Reason : Blood Pressure : / mmHG Vent. Rate : 107 BPM Atrial Rate : 107 BPM P-R Int : 164 ms QRS Dur : 078 ms QT Int : 358 ms P-R-T Axes : 057 007 053 degrees QTc Int : 477 ms POOR DATA QUALITY, INTERPRETATION MAY BE ADVERSELY AFFECTED SINUS TACHYCARDIA POSSIBLE LEFT ATRIAL ENLARGEMENT ABNORMAL ECG WHEN COMPARED WITH ECG OF 22-APR-2019 10:23, VENT. RATE HAS INCREASED BY 38 BPM NON-SPECIFIC CHANGE IN ST SEGMENT IN ANTERIOR LEADS Confirmed by Ingris Montalvo ([id number]) on 10/30/2019 9:50:06 AM Referred By: Confirmed By:Ingris Montalvo
[2019-10-30 09:56] LABS: ALBUMIN 3.4 g/dl (3.4-5.0); BLOOD UREA NITROGEN 12.5 mg/dL (7-18); CALCIUM 8.7 mg/dL (8.5-10.1); CREATININE 0.9 mg/dL (0.55-1.3); MAGNESIUM 2.2 mg/dL (1.8-2.4); PHOSPHOROUS 2.2 mg/dL (2.5-4.9); POTASSIUM 3.3 mmol/L (3.5-5.1); TOT PROT 8.2 g/dl (6.4-8.2)
[2019-10-30] MEDS: MUPIROCIN 2% TOPICAL OINTMENT FOR DECOLONIZATION NS SCH ×2 (10:00→21:30)
--- NOTE | 2019-10-30 12:00 | PN ---
Teaching Attending Note Name of Resident: Zeus Spivey ATTENDING PHYSICIAN STATEMENT I saw and evaluated the patient. I reviewed the resident's note and discussed the case with the resident. I agree with the resident's findings and plan as documented. SUBJECTIVE: Patient seen and examined in the ICU. Awake and alert. Reports feeling better. Mildly tremulous. No CP or SOB. Intake & Output 10/27/19 10/28/19 10/29/19 10/30/19 23:59 23:59 23:59 23:59 Intake Total 541 Output Total 1200 600 Balance -659 -600 Weight 231 lb 229 lb 234 lb Last Vital Signs Temp Pulse Resp BP Pulse Ox 98.2 F 97 H 22 H 142/101 H 100 10/30/19 10:00 10/30/19 10:00 10/30/19 10:00 10/30/19 10:00 10/30/19 09:00 Active Medications Amlodipine Besylate (Norvasc -) 10 mg PO DAILY [facility] Last Admin: 10/30/19 09:05 Dose: 10 mg Aspirin (Ecotrin -) 81 mg PO DAILY [facility] Last Admin: 10/30/19 09:09 Dose: 81 mg Chlordiazepoxide HCl (Librium -) 20 mg PO TID [facility] Last Admin: 10/30/19 08:28 Dose: 20 mg Heparin Sodium (Porcine) (Heparin -) 5,000 unit SQ TID [facility] Last Admin: 10/30/19 05:40 Dose: 5,000 unit Hydrochlorothiazide (Hctz -) 12.5 mg PO DAILY [facility] Last Admin: 10/30/19 09:06 Dose: 12.5 mg Famotidine/Sodium Chloride (Pepcid 20 Mg Premixed Ivpb -) 20 mg in 50 mls @ 100 mls/hr IVPB DAILY [facility] Last Admin: 10/30/19 09:02 Dose: 100 mls/hr Folic Acid 1 mg/ Thiamine HCl 100 mg/ Multivitamins/Minerals 10 ml/ Sodium Chloride 1,000 mls @ 125 mls/hr IVPB Q24H [facility] Last Admin: 10/29/19 21:21 Dose: Not Given Lisinopril (Prinivil) 40 mg PO DAILY [facility] Last Admin: 10/30/19 09:05 Dose: 40 mg Multivitamins/Minerals/Vitamin C (Tab-A-Vit -) 1 tab PO DAILY [facility] Last Admin: 10/30/19 09:05 Dose: 1 tab Mupirocin (Bactroban Ointment (For Decolonization) -) 1 applic NS BID [facility] Stop: 11/03/19 09:59 Last Admin: 10/29/19 23:48 Dose: 1 applic Phenobarbital (Phenobarbital Injection -) 130 mg IVPUSH Q2H PRN PRN Reason: WITHDRAWAL(CONT SUBST) Last Admin: 10/29/19 16:54 Dose: 130 mg Thiamine HCl (Vitamin B1 -) 100 mg PO DAILY [facility] Last Admin: 10/30/19 09:02 Dose: 100 mg Constitutional: Yes: Awake and alert, Well Nourished Eyes: Yes: Conjunctiva Clear, PERRL. No: Sclera Icterus HENT: Yes: Atraumatic, Normocephalic Neck: Yes: Supple, Trachea Midline Cardiovascular: Yes: Regular Rate and Rhythm. No: Murmur Respiratory: Yes: Few scattered rhonchi Gastrointestinal: Yes: Normal Bowel Sounds ...Rectal Exam: Yes: WNL Renal/: Yes: WNL Breast(s): Yes: WNL Musculoskeletal: Yes: WNL Extremities: Yes: WNL Edema: No Peripheral Pulses WNL: Yes Integumentary: Yes: WNL Neurological: Yes: Non-focal Labs: Laboratory Results - last 24 hr 10/29/19 10/30/19 10/30/19 16:41 06:48 09:10 WBC 5.4 RBC 4.52 Hgb 14.4 Hct 40.5 MCV 89.6 MCH 31.8 MCHC 35.5 RDW 13.1 Plt Count 273 D MPV 7.2 L Sodium Potassium Chloride Carbon Dioxide Anion Gap BUN Creatinine Est GFR (CKD-EPI)AfAm Est GFR (CKD-EPI)NonAf POC Glucometer 99 115 Random Glucose Calcium Phosphorus Magnesium Total Bilirubin AST ALT Alkaline Phosphatase Total Protein Albumin 10/30/19 09:10 WBC RBC Hgb Hct MCV MCH MCHC RDW Plt Count MPV Sodium 136 Potassium 3.3 L Chloride 100 Carbon Dioxide 26 Anion Gap 9 BUN 12.5 Creatinine 0.9 Est GFR (CKD-EPI)AfAm 112.62 Est GFR (CKD-EPI)NonAf 97.17 POC Glucometer Random Glucose 160 H Calcium 8.7 Phosphorus 2.2 L Magnesium 2.2 Total Bilirubin 1.0 AST 45 H ALT 49 Alkaline Phosphatase 81 Total Protein 8.2 Albumin 3.4 Assessment/Plan Acute Respiratory Failure ETOH abuse / withdrawal IVF PO as tolerated Monitor for signs of withdrawal Fall precautions O2 as needed Thiamine/Folate/MVI Floor Dr Mckenzie
--- NOTE | 2019-10-30 12:55 | ECHO ---
Name: DEVAN LOPEZ Exam:Adult Echocardiogram Study Date: 10/30/2019 10:27 AM Age: 54 yrs Reason For Study: L CP Height: 69 in Weight: 231 lb BSA: 2.2 m2 MMode/2D Measurements & Calculations IVSd: 1.5 cm Ao root diam: 3.5 cm LVIDd: 4.7 cm LA dimension: 3.4 cm LVIDs: 2.9 cm ACS: 2.2 cm LVPWd: 1.3 cm EDV(Teich): 101.4 ml LVOT diam: 2.1 cm ESV(Teich): 33.3 ml LAV (MOD-bp): 44.0 ml TAPSE: 2.6 cm RV S Kenan: 15.9 cm/sec Doppler Measurements & Calculations MV E max kenan: 69.1 cm/sec Ao V2 max: 130.3 cm/sec MV A max kenan: 100.0 cm/sec Ao max P.8 mmHg MV E/A: 0.69 Ao V2 mean: 88.0 cm/sec MV dec time: 0.26 sec Ao mean P.6 mmHg Ao V2 VTI: 19.5 cm SHANNAN(I,D): 3.6 cm2 SHANNAN(V,D): 3.1 cm2 LV V1 max P.2 mmHg SV(LVOT): 69.7 ml LV V1 mean P.2 mmHg LV V1 max: 113.5 cm/sec LV V1 mean: 67.1 cm/sec LV V1 VTI: 19.4 cm TR max kenan: 233.5 cm/sec PA V2 max: 109.9 cm/sec TR max P.8 mmHg PA max P.8 mmHg PA acc slope: 821.1 cm/sec2 PA acc time: 0.12 sec Med Peak E' Kenan: 6.0 cm/sec PA pr(Accel): 23.5 mmHg Med E/e': 11.4 Lat Peak E' Kenan: 7.6 cm/sec Lat E/e': 9.1 Procedure Study Quality: Good. Left Ventricle The left ventricle is normal in size. There is mild concentric left ventricular hypertrophy. The left ventricular ejection fraction is normal. Ejection Fraction = 65-70%. The transmitral spectral Doppler flow pattern is suggestive of impaired LV relaxation. Right Ventricle The right ventricle is normal size. The right ventricular systolic function is normal. Atria Normal left and right atrial size and function. Mitral Valve The mitral valve leaflets appear normal. There is no evidence of stenosis, fluttering, or prolapse. T here is no mitral regurgitation noted. Tricuspid Valve The tricuspid valve is normal. No tricuspid regurgitation. Aortic Valve The aortic valve is normal in structure and function. Pulmonic Valve The pulmonic valve is not well visualized. There is no pulmonic valvular regurgitation. Great Vessels The aortic root is normal size. Pericardium/Pleura There is no pericardial effusion. Interpretation Summary LV: Normal size,mild LVH,borderline hyperdynamic, EF 65-70%,impaired relaxation RV; Normal No significnant valvular dysfunction. Ingris Montalvo 10/30/2019 12:55 PM
--- NOTE | 2019-10-30 13:14 | PN ---
Physical Exam: SUBJECTIVE: Patient seen and examined SURESH Denies RODRIGUEZ, hallucinations(visual, auditory, tactile), anxiety OBJECTIVE: Vital Signs Period Temp Pulse Resp BP Sys/Hoyt Pulse Ox Last 24 Hr 97.8 F-100.4 F 82-111 16-25 135-167/89-103 95-100 GENERAL: The patient is awake, alert, and fully oriented, in no acute distress. Mild anxiety HEAD: Normal with no signs of trauma. EYES: Extraocular movements intact, sclera anicteric, conjunctiva clear. No ptosis. ENT: Ears normal, nares patent, oropharynx clear without exudates, moist mucous membranes. NECK: Trachea midline, full range of motion, supple. LUNGS: Breath sounds equal, clear to auscultation bilaterally, no wheezes, no crackles, no accessory muscle use. HEART: Regular rate and rhythm, S1, S2 without murmur, rub or gallop. ABDOMEN: Soft, nontender, nondistended, normoactive bowel sounds, no guarding, no rebound, no hepatosplenomegaly, no masses. EXTREMITIES: 2+ pulses, warm, well-perfused, no edema. NEUROLOGICAL: Normal speech, gait not observed. Minor tremors with outstretched hands SKIN: Warm, dry, normal turgor, no rashes or lesions noted Laboratory Results - last 24 hr 10/29/19 10/30/19 10/30/19 16:41 06:48 09:10 WBC 5.4 RBC 4.52 Hgb 14.4 Hct 40.5 MCV 89.6 MCH 31.8 MCHC 35.5 RDW 13.1 Plt Count 273 D MPV 7.2 L Sodium Potassium Chloride Carbon Dioxide Anion Gap BUN Creatinine Est GFR (CKD-EPI)AfAm Est GFR (CKD-EPI)NonAf POC Glucometer 99 115 Random Glucose Calcium Phosphorus Magnesium Total Bilirubin AST ALT Alkaline Phosphatase Total Protein Albumin 10/30/19 09:10 WBC RBC Hgb Hct MCV MCH MCHC RDW Plt Count MPV Sodium 136 Potassium 3.3 L Chloride 100 Carbon Dioxide 26 Anion Gap 9 BUN 12.5 Creatinine 0.9 Est GFR (CKD-EPI)AfAm 112.62 Est GFR (CKD-EPI)NonAf 97.17 POC Glucometer Random Glucose 160 H Calcium 8.7 Phosphorus 2.2 L Magnesium 2.2 Total Bilirubin 1.0 AST 45 H ALT 49 Alkaline Phosphatase 81 Total Protein 8.2 Albumin 3.4 Active Medications Generic Name Dose Route Start Last Admin Trade Name Freq PRN Reason Stop Dose Admin Amlodipine Besylate 10 mg 10/30/19 10:00 10/30/19 09:05 Norvasc - PO 10 mg DAILY [facility]IA[facility] Administration Aspirin 81 mg 10/30/19 10:00 10/30/19 09:09 Ecotrin - PO 81 mg DAILY [facility] Administration Chlordiazepoxide HCl 20 mg 10/30/19 08:00 10/30/19 08:28 Librium - PO 20 mg TID [facility] Administration Heparin Sodium (Porcine) 5,000 unit 10/29/19 06:00 10/30/19 05:40 Heparin - SQ 5,000 unit TID [facility] Administration Hydrochlorothiazide 12.5 mg 10/30/19 10:00 10/30/19 09:06 Hctz - PO 12.5 mg DAILY [facility] Administration Famotidine/Sodium Chloride 20 mg in 50 mls @ 100 mls/hr 10/29/19 10:00 09:02 Pepcid 20 Mg Premixed Ivpb - IVPB 100 mls/hr DAILY [facility] Administration Folic Acid 1 mg/ Thiamine HCl 1,000 mls @ 125 mls/hr 10/29/19 20:45 10/29/19 21:21 100 mg/ Multivitamins/Minerals IVPB Not Given 10 ml/ Sodium Chloride Q24H [facility] Lisinopril 40 mg 10/30/19 10:00 10/30/19 09:05 Prinivil PO 40 mg DAILY [facility] Administration Multivitamins/Minerals/Vitamin C 1 tab 10/30/19 10:00 10/30/19 09:05 Tab-A-Vit - PO 1 tab DAILY [facility] Administration Mupirocin 1 applic 10/29/19 10:00 10/30/19 10:00 Bactroban Ointment (For Decolonization) - NS 11/03/19 09:59 1 applic BID [facility] Administration Phenobarbital 130 mg 10/29/19 00:07 10/29/19 16:54 Phenobarbital Injection - IVPUSH 130 mg Q2H PRN Administration WITHDRAWAL(CONT SUBST) Potassium Chloride 40 meq 10/30/19 13:15 K-Dur - PO 10/30/19 13:16 ONCE ONE Potassium Phos/Sodium Phos 1 packet 10/30/19 13:15 Phos-Nak Packet - PO 10/30/19 13:16 ONCE ONE Thiamine HCl 100 mg 10/29/19 10:00 10/30/19 09:02 Vitamin B1 - PO 100 mg DAILY [facility] Administration ASSESSMENT/PLAN: 54 y/o M with HTN, HCV (treated and now undetectable), asthma and recent EtOH binge who presented with chest pain. He was intubated in ED for failure to protect his airway after multiple rounds of sedation NEURO # EtOH use disorder > CIWA ~3 - librium PRN - low risk for seizures PULM - extubated on 10/29/19 - breathing RA comfortable CARDIO - no active issues GI - tolerating regular diet RENAL - no active issues DVT PPX - SQH DISPO: - downgrade from ICU Visit type - Emergency Visit Emergency Visit: No - New Patient This patient is new to me today: Yes Date on this admission: 10/30/19 - Critical Care Critical Care patient: No Total Critical Care Time (in minutes): 35 Critical Care Statement: The care of this patient involved high complexity decision making to prevent further life threatening deterioration of the patient 's condition and/or to evaluate & treat vital organ system(s) failure or risk of failure. ATTENDING PHYSICIAN STATEMENT I saw and evaluated the patient. I reviewed the resident's note and discussed the case with the resident. I agree with the resident's findings and plan as documented. SUBJECTIVE: OBJECTIVE: ASSESSMENT AND PLAN:
[2019-10-30] MEDS ORDERED: POTASSIUM CHLORIDE TABS 10 MEQ TABLET.ER (FP) PO ONE (13:15)
[2019-10-30] MEDS ORDERED: NAPH,MB-DB/K PH,MBDB POWDER PACKET PO ONE (13:15)
[2019-10-30 14:14] VITALS: BMI 34.5
--- NOTE | 2019-10-30 16:49 | PN ---
Physical Exam: SUBJECTIVE: Patient seen and examined. No acute events overnight per nurse. Pt unsteady when I walked in the room he was trying to get to his bed with the nurses help. PT eval. OBJECTIVE: Vital Signs Period Temp Pulse Resp BP Sys/Hoyt Pulse Ox Last 24 Hr 97.8 F-100.4 F 82-111 12-25 98-166/77-101 95-100 Gen: awake, alert, oriented x3, in no acute distress, no signs of sweating or anxiety on exam CV: Sinus tachycardia, no murmurs, rubs, or gallops. Lungs: CTA bilaterally Abdomen: normoactive BS, nontender, globose abdomen, non-tympanitic to percussion. Ext: trace edema bilateral LE Neuro: calm, minimal UE tremors Laboratory Results - last 24 hr 10/30/19 10/30/19 10/30/19 06:48 09:10 09:10 WBC 5.4 RBC 4.52 Hgb 14.4 Hct 40.5 MCV 89.6 MCH 31.8 MCHC 35.5 RDW 13.1 Plt Count 273 D MPV 7.2 L Sodium 136 Potassium 3.3 L Chloride 100 Carbon Dioxide 26 Anion Gap 9 BUN 12.5 Creatinine 0.9 Est GFR (CKD-EPI)AfAm 112.62 Est GFR (CKD-EPI)NonAf 97.17 POC Glucometer 115 Random Glucose 160 H Calcium 8.7 Phosphorus 2.2 L Magnesium 2.2 Total Bilirubin 1.0 AST 45 H ALT 49 Alkaline Phosphatase 81 Total Protein 8.2 Albumin 3.4 Active Medications Generic Name Dose Route Start Last Admin Trade Name Tellyq PRN Reason Stop Dose Admin Amlodipine Besylate 10 mg 10/30/19 10:00 10/30/19 09:05 Norvasc - PO 10 mg DAILY MIAH Administration Aspirin 81 mg 10/30/19 10:00 10/30/19 09:09 Ecotrin - PO 81 mg DAILY MIAH Administration Chlordiazepoxide HCl 20 mg 10/30/19 08:00 10/30/19 13:27 Librium - PO 20 mg TID MIAH Administration Heparin Sodium (Porcine) 5,000 unit 10/29/19 06:00 10/30/19 13:26 Heparin - SQ 5,000 unit TID MIAH Administration Hydrochlorothiazide 12.5 mg 10/30/19 10:00 10/30/19 09:06 Hctz - PO 12.5 mg DAILY MIAH Administration Famotidine/Sodium Chloride 20 mg in 50 mls @ 100 mls/hr 10/29/19 10:00 09:02 Pepcid 20 Mg Premixed Ivpb - IVPB 100 mls/hr DAILY MIAH Administration Folic Acid 1 mg/ Thiamine HCl 1,000 mls @ 125 mls/hr 10/29/19 20:45 10/29/19 21:21 100 mg/ Multivitamins/Minerals IVPB Not Given 10 ml/ Sodium Chloride Q24H MIAH Lisinopril 40 mg 10/30/19 10:00 10/30/19 09:05 Prinivil PO 40 mg DAILY MIAH Administration Multivitamins/Minerals/Vitamin C 1 tab 10/30/19 10:00 10/30/19 09:05 Tab-A-Vit - PO 1 tab DAILY MIAH Administration Mupirocin 1 applic 10/29/19 10:00 10/30/19 10:00 Bactroban Ointment (For Decolonization) - NS 11/03/19 09:59 1 applic BID MIAH Administration Phenobarbital 130 mg 10/29/19 00:07 10/29/19 16:54 Phenobarbital Injection - IVPUSH 130 mg Q2H PRN Administration WITHDRAWAL(CONT SUBST) Thiamine HCl 100 mg 10/29/19 10:00 10/30/19 09:02 Vitamin B1 - PO 100 mg DAILY MIAH Administration ASSESSMENT/PLAN: Pt is a 54 y/o M with HTN, HCV (treated and now undetectable), asthma and recent EtOH binge who presented with chest pain. He was intubated in ED for failure to protect his airway. Admit to ICU # Acute EtOH withdrawal - s/p extubation day 2 -minimally tremulous -monitor. -receiving ativan and phenobarbitol prn - stable on thiamine and folic acid - tapering librium per protocol from 20 TID-> 15 Q6H - PT eval noted- needs assist getting out of bed d/t pain to lowback and abdominal area. Able to perform transfer with supervision. Decrease arm swing noted during ambulation #CP -initial EKG with no ST elevations -Trop neg x 2 #HTN -BP well controlled -May need to hold off on BP meds while pt receives sedative agents Replete lytes prn Dispo: may be able to send pt to detox tm Visit type - Emergency Visit Emergency Visit: Yes ED Registration Date: 10/28/19 Care time: The patient presented to the Emergency Department on the above date and was hospitalized for further evaluation of their emergent condition. - New Patient This patient is new to me today: No - Critical Care Critical Care patient: Yes Total Critical Care Time (in minutes): 35 Critical Care Statement: The care of this patient involved high complexity decision making to prevent further life threatening deterioration of the patient 's condition and/or to evaluate & treat vital organ system(s) failure or risk of failure. - Discharge Referral Referred to [facility] No ATTENDING PHYSICIAN STATEMENT I saw and evaluated the patient. I reviewed the resident's note and discussed the case with the resident. I agree with the resident's findings and plan as documented. SUBJECTIVE: OBJECTIVE: ASSESSMENT AND PLAN:
[2019-10-30] MEDS: chlordiazePOXIDE 5 MG CAPSULE PO SCH ×2 (17:51→22:13)
--- NOTE | 2019-10-30 18:54 | PN ---
Teaching Attending Note Name of Resident: Jesse Coelho ATTENDING PHYSICIAN STATEMENT I saw and evaluated the patient. I reviewed the resident's note and discussed the case with the resident. I agree with the resident's findings and plan as documented. SUBJECTIVE: Patient has no complaints. OBJECTIVE: Vital Signs Period Temp Pulse Resp BP Sys/Hoyt Pulse Ox Last 24 Hr 97.8 F-99.7 F 82-111 12-25 98-166/77-101 95-100 GENERAL: No distress, tremulous HEART: S1S2, tachycardic LUNGS: Clear ABDOMEN: Obese, soft, non-tender, non-distended, normal BS EXTREMITIES: No edema Laboratory Results - last 24 hr 10/30/19 10/30/19 10/30/19 06:48 09:10 09:10 WBC 5.4 RBC 4.52 Hgb 14.4 Hct 40.5 MCV 89.6 MCH 31.8 MCHC 35.5 RDW 13.1 Plt Count 273 D MPV 7.2 L Sodium 136 Potassium 3.3 L Chloride 100 Carbon Dioxide 26 Anion Gap 9 BUN 12.5 Creatinine 0.9 Est GFR (CKD-EPI)AfAm 112.62 Est GFR (CKD-EPI)NonAf 97.17 POC Glucometer 115 Random Glucose 160 H Calcium 8.7 Phosphorus 2.2 L Magnesium 2.2 Total Bilirubin 1.0 AST 45 H ALT 49 Alkaline Phosphatase 81 Total Protein 8.2 Albumin 3.4 Current Medications Generic Name Dose Route Start Last Admin Trade Name Freq PRN Reason Stop Dose Admin Amlodipine Besylate 10 mg 10/30/19 10:00 10/30/19 09:05 Norvasc - PO 10 mg DAILY MIAH Administration Aspirin 81 mg 10/30/19 10:00 10/30/19 09:09 Ecotrin - PO 81 mg DAILY MIAH Administration Chlordiazepoxide HCl 15 mg 10/30/19 17:00 10/30/19 17:51 Librium - PO 15 mg [id number] MIAH Administration Heparin Sodium (Porcine) 5,000 unit 10/29/19 06:00 10/30/19 13:26 Heparin - SQ 5,000 unit TID MIAH Administration Hydrochlorothiazide 12.5 mg 10/30/19 10:00 10/30/19 09:06 Hctz - PO 12.5 mg DAILY MIAH Administration Famotidine/Sodium Chloride 20 mg in 50 mls @ 100 mls/hr 10/29/19 10:00 09:02 Pepcid 20 Mg Premixed Ivpb - IVPB 100 mls/hr DAILY MIAH Administration Folic Acid 1 mg/ Thiamine HCl 1,000 mls @ 125 mls/hr 10/29/19 20:45 10/29/19 21:21 100 mg/ Multivitamins/Minerals IVPB Not Given 10 ml/ Sodium Chloride Q24H MIAH Lisinopril 40 mg 10/30/19 10:00 10/30/19 09:05 Prinivil PO 40 mg DAILY MIAH Administration Multivitamins/Minerals/Vitamin C 1 tab 10/30/19 10:00 10/30/19 09:05 Tab-A-Vit - PO 1 tab DAILY MIAH Administration Mupirocin 1 applic 10/29/19 10:00 10/30/19 10:00 Bactroban Ointment (For Decolonization) - NS 11/03/19 09:59 1 applic BID MIAH Administration Phenobarbital 130 mg 10/29/19 00:07 10/29/19 16:54 Phenobarbital Injection - IVPUSH 130 mg Q2H PRN Administration WITHDRAWAL(CONT SUBST) Thiamine HCl 100 mg 10/29/19 10:00 10/30/19 09:02 Vitamin B1 - PO 100 mg DAILY MIAH Administration ASSESSMENT AND PLAN: This is a 54 year old man with a history of HTN, HCV, asthma who presented to the ED with chest pain. 1. Acute respiratory failure secondary to alcohol withdrawal - Extubated yesterday - Continue Librium detox 2. Continuous alcohol dependence - Continue thiamine, folic acid, multivitamin 3. Hypokalemia - Replete potassium 4. HTN - Continue Norvasc, lisinopril, HCTZ 5. Asthma - Stable 6. Hepatitis C - Previously treated
[2019-10-30] MEDS ORDERED: ALBUTEROL SO4 HFA INHALER IH PRN (20:19)
[2019-10-30] MEDS: FOLIC ACID INJECTION - 1 MG, THIAMINE HCL 100 MG, MULTIVIT INJECTION ADULT 10 ML in SOD... IVPB SCH (20:58)
[2019-10-31] MEDS: chlordiazePOXIDE 5 MG CAPSULE PO SCH ×2 (05:30→11:15)
[2019-10-31 06:34] LABS: HEMATOCRIT 39.9 % (35.4-49); HEMOGLOBIN 14.1 GM/dL (11.7-16.9); MCH 31.8 pg (25.7-33.7); MCHC 35.4 g/dl (32.0-35.9); MEAN CELL VOLUME 89.9 fl (80-96); MEAN PLT VOLUME 7.6 fl (7.5-11.1); PLATELET COUNT 272 K/MM3 (134-434); RBC 4.44 M/mm3 (4.00-5.60); RDW 12.9 % (11.9-15.9); WHITE BLOOD COUNT 5.6 K/mm3 (4.0-10.0)
[2019-10-31 06:44] LABS: ALBUMIN 3.2 g/dl (3.4-5.0); BILIRUBIN,TOTAL 0.6 mg/dL (0.2-1); BLOOD UREA NITROGEN 16.2 mg/dL (7-18); CALCIUM 8.8 mg/dL (8.5-10.1); CREATININE 0.9 mg/dL (0.55-1.3); MAGNESIUM 2.3 mg/dL (1.8-2.4); POTASSIUM 3.5 mmol/L (3.5-5.1); TOT PROT 7.6 g/dl (6.4-8.2)
[2019-10-31] MEDS ORDERED: chlordiazePOXIDE HCL 10 MG CAPSULE PO PRN (07:22)
[2019-10-31] MEDS ORDERED: POTASSIUM CHLORIDE TABS 20 MEQ TABLET.ER (FP) PO ONE (08:00)
[2019-10-31] MEDS: amLODIPine BESYLATE 10 MG TABLET (FP) PO SCH (09:12)
[2019-10-31] MEDS: HYDROCHLOROTHIAZIDE 12.5 MG CAPSULE (FP) PO SCH (09:12)
[2019-10-31] MEDS: LISINOPRIL 20 MG TABLET (FP) PO SCH (09:12)
[2019-10-31] MEDS: ASPIRIN COATED 81 MG TABLET.EC PO SCH (09:13)
[2019-10-31] MEDS: FAMOTIDINE 20 MG/50 ML IVPB 20 MG/50 ML MG IVPB SCH (09:13)
[2019-10-31] MEDS: MULTIVITAMINS (DAILY MVI) TABLET (FP) PO SCH (09:13)
[2019-10-31] MEDS: THIAMINE HCL 100 MG TABLET (FP) PO SCH (09:13)
[2019-10-31] MEDS ORDERED: ENOXAPARIN NA (PORCINE) 40 MG/0.4 ML DISP.SYRIN SQ SCH (10:00)
[2019-10-31 10:52] VITALS: TEMP 97.9
[2019-10-31] MEDS: MUPIROCIN 2% TOPICAL OINTMENT FOR DECOLONIZATION NS SCH (11:15)
--- NOTE | 2019-10-31 11:17 | PN ---
Teaching Attending Note Name of Resident: Zeus Spivey ATTENDING PHYSICIAN STATEMENT I saw and evaluated the patient. I reviewed the resident's note and discussed the case with the resident. I agree with the resident's findings and plan as documented. SUBJECTIVE: Patient seen and examined in the ICU. Awake and alert. Reports feeling overall better. Not tremulous. No CP or SOB. Intake & Output 10/28/19 10/29/19 10/30/19 10/31/19 23:59 23:59 23:59 23:59 Intake Total 541 240 Output Total 1200 600 Balance -659 -360 Weight 231 lb 229 lb 234 lb 234 lb Last Vital Signs Temp Pulse Resp BP Pulse Ox 97.9 F 107 H 15 123/91 100 10/31/19 10:00 10/31/19 10:00 10/31/19 10:00 10/31/19 10:00 10/30/19 21:00 Active Medications Albuterol Sulfate (Ventolin Hfa Inhaler -) 2 puff IH Q4H PRN PRN Reason: SHORT OF BREATH/WHEEZING Amlodipine Besylate (Norvasc -) 10 mg PO DAILY [facility] Last Admin: 10/31/19 09:12 Dose: 10 mg Aspirin (Ecotrin -) 81 mg PO DAILY [facility] Last Admin: 10/31/19 09:13 Dose: 81 mg Chlordiazepoxide HCl (Librium -) 15 mg PO [id number] [facility] Stop: 10/31/19 11:30 Last Admin: 10/31/19 11:15 Dose: 15 mg Chlordiazepoxide HCl (Librium -) 10 mg PO Q12H PRN PRN Reason: Signs/symptoms of Withdrawal Stop: 11/03/19 23:59 Chlordiazepoxide HCl (Librium -) 10 mg PO Q8H PRN PRN Reason: Signs/symptoms of Withdrawal Stop: 11/02/19 23:59 Chlordiazepoxide HCl (Librium -) 10 mg PO Q8H [facility] Stop: 11/01/19 11:01 Chlordiazepoxide HCl (Librium -) 10 mg PO ONCE ONE Stop: 11/01/19 19:01 Enoxaparin Sodium (Lovenox -) 40 mg SQ DAILY [facility] Last Admin: 10/31/19 09:11 Dose: 40 mg Hydrochlorothiazide (Hctz -) 12.5 mg PO DAILY [facility] Last Admin: 10/31/19 09:12 Dose: 12.5 mg Famotidine/Sodium Chloride (Pepcid 20 Mg Premixed Ivpb -) 20 mg in 50 mls @ 100 mls/hr IVPB DAILY [facility] Last Admin: 10/31/19 09:13 Dose: 100 mls/hr Lisinopril (Prinivil) 40 mg PO DAILY [facility] Last Admin: 10/31/19 09:12 Dose: 40 mg Multivitamins/Minerals/Vitamin C (Tab-A-Vit -) 1 tab PO DAILY MIAH Last Admin: 10/31/19 09:13 Dose: 1 tab Mupirocin (Bactroban Ointment (For Decolonization) -) 1 applic NS BID [facility] Stop: 11/03/19 09:59 Last Admin: 10/31/19 11:15 Dose: 1 applic Thiamine HCl (Vitamin B1 -) 100 mg PO DAILY [facility] Last Admin: 10/31/19 09:13 Dose: 100 mg Constitutional: Yes: Awake and alert, Well Nourished Eyes: Yes: Conjunctiva Clear, PERRL. No: Sclera Icterus HENT: Yes: Atraumatic, Normocephalic Neck: Yes: Supple, Trachea Midline Cardiovascular: Yes: Regular Rate and Rhythm. No: Murmur Respiratory: Yes: Few scattered rhonchi Gastrointestinal: Yes: Normal Bowel Sounds ...Rectal Exam: Yes: WNL Renal/: Yes: WNL Breast(s): Yes: WNL Musculoskeletal: Yes: WNL Extremities: Yes: WNL Edema: No Peripheral Pulses WNL: Yes Integumentary: Yes: WNL Neurological: Yes: Non-focal Labs: Laboratory Results - last 24 hr 10/31/19 10/31/19 05:45 05:45 WBC 5.6 RBC 4.44 Hgb 14.1 Hct 39.9 MCV 89.9 MCH 31.8 MCHC 35.4 RDW 12.9 Plt Count 272 MPV 7.6 Sodium 134 L Potassium 3.5 Chloride 100 Carbon Dioxide 25 Anion Gap 9 BUN 16.2 Creatinine 0.9 Est GFR (CKD-EPI)AfAm 112.62 Est GFR (CKD-EPI)NonAf 97.17 Random Glucose 115 H Calcium 8.8 Phosphorus 4.0 Magnesium 2.3 Total Bilirubin 0.6 AST 29 ALT 40 Alkaline Phosphatase 71 Total Protein 7.6 Albumin 3.2 L Assessment/Plan Acute Respiratory Failure ETOH abuse / withdrawal PO as tolerated Monitor for signs of withdrawal Fall precautions O2 as needed Thiamine/Folate/MVI DC planning Dr Mckenzie
--- NOTE | 2019-10-31 11:18 | PN ---
Physical Exam: SUBJECTIVE: Patient seen and examined LUISON Denies RODRIGUEZ, anxiety, tremors, hallucinations OBJECTIVE: Vital Signs Period Temp Pulse Resp BP Sys/Hoyt Pulse Ox Last 24 Hr 97.9 F-99.2 F 80-111 12- 98-145/77-97 100 GENERAL: The patient is awake, alert, and fully oriented, in no acute distress. Mild anxiety HEAD: Normal with no signs of trauma. EYES: Extraocular movements intact, sclera anicteric, conjunctiva clear. No ptosis. ENT: Ears normal, nares patent, oropharynx clear without exudates, moist mucous membranes. NECK: Trachea midline, full range of motion, supple. LUNGS: Breath sounds equal, clear to auscultation bilaterally, no wheezes, no crackles, no accessory muscle use. HEART: Regular rate and rhythm, S1, S2 without murmur, rub or gallop. ABDOMEN: Soft, nontender, nondistended, normoactive bowel sounds, no guarding, no rebound, no hepatosplenomegaly, no masses. EXTREMITIES: 2+ pulses, warm, well-perfused, no edema. NEUROLOGICAL: Normal speech, gait not observed. Minor tremors with outstretched hands SKIN: Warm, dry, normal turgor, no rashes or lesions noted Laboratory Results - last 24 hr 10/31/19 10/31/19 05:45 05:45 WBC 5.6 RBC 4.44 Hgb 14.1 Hct 39.9 MCV 89.9 MCH 31.8 MCHC 35.4 RDW 12.9 Plt Count 272 MPV 7.6 Sodium 134 L Potassium 3.5 Chloride 100 Carbon Dioxide 25 Anion Gap 9 BUN 16.2 Creatinine 0.9 Est GFR (CKD-EPI)AfAm 112.62 Est GFR (CKD-EPI)NonAf 97.17 Random Glucose 115 H Calcium 8.8 Phosphorus 4.0 Magnesium 2.3 Total Bilirubin 0.6 AST 29 ALT 40 Alkaline Phosphatase 71 Total Protein 7.6 Albumin 3.2 L Active Medications Generic Name Dose Route Start Last Admin Trade Name Freq PRN Reason Stop Dose Admin Albuterol Sulfate 2 puff 10/30/19 20:19 Ventolin Hfa Inhaler - IH Q4H PRN SHORT OF BREATH/WHEEZING Amlodipine Besylate 10 mg 10/30/19 10:00 10/31/19 09:12 Norvasc - PO 10 mg DAILY MIAH Administration Aspirin 81 mg 10/30/19 10:00 10/31/19 09:13 Ecotrin - PO 81 mg DAILY MIAH Administration Chlordiazepoxide HCl 15 mg 10/30/19 17:00 10/31/19 11:15 Librium - PO 10/31/19 11:30 15 mg [id number] MIAH Administration Chlordiazepoxide HCl 10 mg 11/03/19 00:00 Librium - PO 11/03/19 23:59 Q12H PRN Signs/symptoms of Withdrawal Chlordiazepoxide HCl 10 mg 10/31/19 07:22 Librium - PO 11/02/19 23:59 Q8H PRN Signs/symptoms of Withdrawal Chlordiazepoxide HCl 10 mg 10/31/19 19:00 Librium - PO 11/01/19 11:01 Q8H MIAH Chlordiazepoxide HCl 10 mg 11/01/19 19:00 Librium - PO 11/01/19 19:01 ONCE ONE Enoxaparin Sodium 40 mg 10/31/19 10:00 10/31/19 09:11 Lovenox - SQ 40 mg DAILY MIAH Administration Hydrochlorothiazide 12.5 mg 10/30/19 10:00 10/31/19 09:12 Hctz - PO 12.5 mg DAILY MIAH Administration Famotidine/Sodium Chloride 20 mg in 50 mls @ 100 mls/hr 10/29/19 10:00 09:13 Pepcid 20 Mg Premixed Ivpb - IVPB 100 mls/hr DAILY MIAH Administration Lisinopril 40 mg 10/30/19 10:00 10/31/19 09:12 Prinivil PO 40 mg DAILY MIAH Administration Multivitamins/Minerals/Vitamin C 1 tab 10/30/19 10:00 10/31/19 09:13 Tab-A-Vit - PO 1 tab DAILY MIAH Administration Mupirocin 1 applic 10/29/19 10:00 10/31/19 11:15 Bactroban Ointment (For Decolonization) - NS 11/03/19 09:59 1 applic BID MIAH Administration Thiamine HCl 100 mg 10/29/19 10:00 10/31/19 09:13 Vitamin B1 - PO 100 mg DAILY MIAH Administration ASSESSMENT/PLAN: 54 y/o M with HTN, HCV (treated and now undetectable), asthma and recent EtOH binge who presented with chest pain. He was intubated in ED for failure to protect his airway after multiple rounds of sedation. Extubated on 10/29/19. No further ICU-related needs NEURO # EtOH use disorder > CIWA ~2 - librium PRN - low risk for seizures PULM - extubated on 10/29/19 - breathing RA comfortable CARDIO - no active issues GI - tolerating regular diet RENAL - no active issues DVT PPX - SQH DISPO: - downgraded from ICU Visit type - Emergency Visit Emergency Visit: No - New Patient This patient is new to me today: No - Critical Care Critical Care patient: No Total Critical Care Time (in minutes): 35 Critical Care Statement: The care of this patient involved high complexity decision making to prevent further life threatening deterioration of the patient 's condition and/or to evaluate & treat vital organ system(s) failure or risk of failure. ATTENDING PHYSICIAN STATEMENT I saw and evaluated the patient. I reviewed the resident's note and discussed the case with the resident. I agree with the resident's findings and plan as documented. SUBJECTIVE: OBJECTIVE: ASSESSMENT AND PLAN:
[2019-10-31 15:02] VITALS: BP 138/83; PULSE 95
--- NOTE | 2019-10-31 16:48 | DS ---
Physical Exam: SUBJECTIVE: Patient seen and examined OBJECTIVE: Vital Signs Period Temp Pulse Resp BP Sys/Hoyt Pulse Ox Last 24 Hr 97.9 F-99.2 F 80-107 15-24 123-138/83-94 100-100 PHYSICAL EXAM GENERAL: The patient is awake, alert, and fully oriented, in no acute distress. HEAD: Normal with no signs of trauma. EYES: PERRL, extraocular movements intact, sclera anicteric, conjunctiva clear. ENT: Ears normal, nares patent, oropharynx clear without exudates, moist mucous membranes. NECK: Trachea midline, full range of motion, supple. LUNGS: Breath sounds equal, clear to auscultation bilaterally, no wheezes, no crackles, no accessory muscle use. HEART: Regular rate and rhythm, S1, S2 without murmur, rub or gallop. ABDOMEN: Soft, nontender, nondistended, normoactive bowel sounds, no guarding, no rebound, no hepatosplenomegaly, no masses. EXTREMITIES: 2+ pulses, warm, well-perfused, no edema. NEUROLOGICAL: Cranial nerves II through XII grossly intact. Normal speech, gait not observed. PSYCH: Normal mood, normal affect. SKIN: Warm, dry, normal turgor, no rashes or lesions noted. LABS Laboratory Results - last 24 hr 10/31/19 10/31/19 05:45 05:45 WBC 5.6 RBC 4.44 Hgb 14.1 Hct 39.9 MCV 89.9 MCH 31.8 MCHC 35.4 RDW 12.9 Plt Count 272 MPV 7.6 Sodium 134 L Potassium 3.5 Chloride 100 Carbon Dioxide 25 Anion Gap 9 BUN 16.2 Creatinine 0.9 Est GFR (CKD-EPI)AfAm 112.62 Est GFR (CKD-EPI)NonAf 97.17 Random Glucose 115 H Calcium 8.8 Phosphorus 4.0 Magnesium 2.3 Total Bilirubin 0.6 AST 29 ALT 40 Alkaline Phosphatase 71 Total Protein 7.6 Albumin 3.2 L HOSPITAL COURSE: Date of Admission:10/28/19 Date of Discharge: 10/31/19 Discharge Summary Problems reviewed: Yes Reason For Visit: ALCOHOL WITHDRAWAL SYNDROME/ CHEST PAIN Condition: Improved - Instructions Diet, Activity, Other Instructions: You were seen in the hospital for acute alcohol intoxication. You were found to be in respiratory failure and as a result, you were intubated to help with your breathing. During your hospital stay, your respiratory status improved and you were extubated (tube taken out). You were likely not withdrawing from alcohol given that you are not a frequent drinker therefore we will send you home on librium by mouth (2 pills) to be taken only if your feeling like you are withdrawing. You should refrain from drinking alcohol anymore as it is deadly and can lead to breathing issues, heart issue, liver issues, etc. You should take: Librium 10 mg by mouth as needed if your withdrawing from your alcohol abuse. We will order you 2 pills. Please take this pill if you have any alcohol withdrawal symptoms such as worsening agitation, tremors, seizures, nausea/ vomiting, hallucinations. THEN PROCEED TO [facility] FOR DETOX or YOUR NEAREST EMERGENCY ROOM IMMEDIATELY. Folic acid 1 tablet by mouth once daily for your alcohol abuse. Thiamine 100 mg tablet once daily by mouth for your alcohol use. You should continue your other home medications as prescribed. You should follow up with your primary care doctor in 1 week after discharge. You should follow up with your non clinical advisor, Dr. Monterroso within 1 week for outpatient cardiac evaluation as discussed during your hospital stay. You should return to the ER or [facility] if you have any symptoms of severe withdrawal with fevers, chest pain, sweating excessively, agitation, hallucinations, nausea, vomiting. Referrals: Noman Monterroso MD [Staff Physician] - 1 Week Oscar Roldan MD [Primary Care Provider] - 1 Week Freeman Perkins DO [Staff Physician] - 1 Week Disposition: HOME - Home Medications Comprehensive Discharge Medication List: Ambulatory Orders Aspirin [Lo-Dose Aspirin EC] 81 mg PO DAILY 04/22/19 Amlodipine Besylate [Norvasc -] 10 mg PO DAILY 10/29/19 Hydrochlorothiazide 12.5 mg PO DAILY 10/29/19 Lisinopril [Prinivil -] 40 mg PO DAILY 10/29/19 Meloxicam 15 mg PO DAILY 10/29/19 Albuterol Sulfate Inhaler - [Ventolin HFA Inhaler -] 2 puff IH QID PRN 10/30/19 Cyclobenzaprine HCl 10 mg PO ASDIR PRN 10/30/19 Chlordiazepoxide [Librium -] 10 mg PO BID PRN #2 capsule MDD 20mg 10/31/19 Folic Acid 1 mg PO DAILY #30 tablet 10/31/19 Thiamine HCl [Vitamin B-1] 100 mg PO DAILY #30 tablet 10/31/19 - Discharge Referral Referred to [facility] No ATTENDING PHYSICIAN STATEMENT I saw and evaluated the patient. I reviewed the resident's note and discussed the case with the resident. I agree with the resident's findings and plan as documented. SUBJECTIVE: OBJECTIVE: ASSESSMENT AND PLAN:
--- NOTE | 2019-10-31 16:58 | PN ---
Teaching Attending Note Name of Resident: Jesse Coelho ATTENDING PHYSICIAN STATEMENT I saw and evaluated the patient. I reviewed the resident's note and discussed the case with the resident. I agree with the resident's findings and plan as documented. SUBJECTIVE: Feels well, no complaints. No tremor, diaphoresis, anxiety OBJECTIVE: Afebrile, Hemodynamically stable. Comfortable. AAO x 3. No tremor. Last Vital Signs Temp Pulse Resp BP Pulse Ox 97.9 F 95 H 22 H 138/83 100 10/31/19 10:00 10/31/19 14:25 10/31/19 14:25 10/31/19 14:25 10/31/19 09:00 HEENT: Atraumatic, Normocephalic. HEART: S1, S2, RRR LUNGS: Clear to auscultation ABDOMEN: High BMI, soft, non-tender, non-distended, normal BS. EXTREMITIES: No edema, no calf tenderness. Laboratory Results - last 24 hr 10/31/19 10/31/19 05:45 05:45 WBC 5.6 RBC 4.44 Hgb 14.1 Hct 39.9 MCV 89.9 MCH 31.8 MCHC 35.4 RDW 12.9 Plt Count 272 MPV 7.6 Sodium 134 L Potassium 3.5 Chloride 100 Carbon Dioxide 25 Anion Gap 9 BUN 16.2 Creatinine 0.9 Est GFR (CKD-EPI)AfAm 112.62 Est GFR (CKD-EPI)NonAf 97.17 Random Glucose 115 H Calcium 8.8 Phosphorus 4.0 Magnesium 2.3 Total Bilirubin 0.6 AST 29 ALT 40 Alkaline Phosphatase 71 Total Protein 7.6 Albumin 3.2 L Discharge Medications Medication Instructions Recorded Aspirin [Lo-Dose Aspirin EC] 81 mg PO DAILY 04/22/19 Amlodipine Besylate [Norvasc -] 10 mg PO DAILY 10/29/19 Hydrochlorothiazide 12.5 mg PO DAILY 10/29/19 Lisinopril [Prinivil -] 40 mg PO DAILY 10/29/19 Meloxicam 15 mg PO DAILY 10/29/19 Albuterol Sulfate Inhaler - 2 puff IH QID PRN 10/30/19 [Ventolin HFA Inhaler -] Cyclobenzaprine HCl 10 mg PO ASDIR PRN 10/30/19 Chlordiazepoxide [Librium -] 10 mg PO BID PRN #2 capsule MDD 10/31/19 20mg Folic Acid 1 mg PO DAILY #30 tablet 10/31/19 Thiamine HCl [Vitamin B-1] 100 mg PO DAILY #30 tablet 10/31/19 ASSESSMENT AND PLAN: 54 year old male with a history of HTN, HCV, Asthma who presented to the ED with chest pain, found to be in respiratory distress requiring intubation. 1. Acute respiratory failure secondary to alcohol intoxication s/p Intubation/Extubation 10/29/19 No evidence of alcohol withdrawal. No history of chronic alcohol use or alcohol dependence. Patient refers one week of heavy alcohol use only after hearing of the of a family member. No history of withdrawals. No sign of alcohol withdrawal currently. Medically stable and optimized for discharge. He was given a script for 2 doses of [id number] in the unlikely event that he feels onset of withdrawal symptoms. He was advised to take one pill and to seek medical attention at the ED or at [facility]. He and his verbalized understanding and desire to go home. He declined [facility] transfer. He was of sound mind and medically competent for medical decision making activity. He will be discharged on Thiamine, Folic Acid. 2. HTN - continue Norvasc, Lisinopril, HCTZ. 3. Asthma - stable. No evidence of decompensation. 4. Hepatitis C s/p treatment. 5. History of Chest Pain s/p recent stress test - negative. Follow up with Cardiology as out-patient.
[2019-10-31] MEDS ORDERED: chlordiazePOXIDE HCL 10 MG CAPSULE PO SCH (19:00)
[2019-11-01] MEDS ORDERED: chlordiazePOXIDE HCL 10 MG CAPSULE PO ONE (19:00)
[2019-11-03] MEDS ORDERED: chlordiazePOXIDE HCL 10 MG CAPSULE PO PRN
== END 2019-10-31 15:13 | disposition home or self-care (01) | DRG 208 ==
LOC: JER 18:51 → JERBED 20:18 → JICU 23:02
PROVIDERS: ADMIT Internal Medicine
PROC: 5A1935Z Respiratory Ventilation, Less than 24 Consecutive Hours (ICD-10-PCS; principal; 2019-10-28)
PROC: 0BH17EZ Insertion of Endotracheal Airway into Trachea, Via Natural or Artificial Opening (ICD-10-PCS; 2019-10-28)
DX: J96.01 Acute respiratory failure with hypoxia (principal); F10.120 Alcohol abuse with intoxication, uncomplicated; I10 Essential (primary) hypertension; J45.909 Unspecified asthma, uncomplicated; D47.3 Essential (hemorrhagic) thrombocythemia; R74.0 Nonspecific elevation of levels of transaminase and lactic acid dehydrogenase [LDH]; B19.20 Unspecified viral hepatitis C without hepatic coma; E66.9 Obesity, unspecified; Z68.34 Body mass index [BMI] 34.0-34.9, adult; G47.30 Sleep apnea, unspecified; R07.9 Chest pain, unspecified; E87.6 Hypokalemia
CPT/HCPCS: 36415; 36600; 70450-TC; 71045-TC-FY; 71260-TC; 72125-TC; 74177-TC; 80053; 80307; 81003; 82272; 82375; 82550; 82803; 82962; 83050; 83690; 83735; 84100; 84484; 85025; 85027; 85610; 85730; 87086; 93005; 93010; 93306-TC; 94002; 97116-GP; 97161-GP; 99291; J0735; J1644; J7030; Q9967

== ENCOUNTER 2020-03-25 23:37 | Inpatient (IN) | payer OTHER ==
--- NOTE | 2020-03-26 00:54 | PDOC ---
History of Present Illness - General Chief Complaint: Chest Pain Stated Complaint: CHEST PAIN Time Seen by Provider: 03/26/20 00:54 History Source: Patient Exam Limitations: No Limitations - History of Present Illness Initial Comments: 03/26/20 01:38 HPI: This is a 54 y/o male with a PMH of HTN and alcohol w/d with seizures presenting to the ED with a complaint of chest pain. He describes it more as a shortness of breath in the middle of his chest for the past two days that began while he was drinking. He denies any radiation, and says its worse when he lays flat. He also states that it hurts when he takes deep breaths. He reports that he normally drinks around 15 beers a day, but has been trying to cut back the past few days, and only had 10 this morning. ROS: GENERAL/CONSTITUTIONAL: No fever/chills. No weakness. HEAD, EYES, EARS, NOSE AND THROAT: No change in vision. No ear pain or discharge. No sore throat. CARDIOVASCULAR: Yes chest pain and shortness of breath. RESPIRATORY: No cough, wheezing, or hemoptysis. GASTROINTESTINAL: No nausea, vomiting, diarrhea or constipation. GENITOURINARY: No dysuria, frequency MUSCULOSKELETAL: No joint or muscle swelling or pain. No neck or back pain. NEUROLOGIC: Yes headache. No loss of consciousness, or change in strength/sensation. ENDOCRINE: No increased thirst. No abnormal weight change. HEMATOLOGIC/LYMPHATIC: No easy bleeding, or history of blood clots. PMH: HTN, alcohol use disorder, withdrawal seizures PSx: Denied Social Hx: Denied tobacco, admits to 15 beers per day Meds: See nurses note Allergies: KNDA PE: GENERAL: Awake, alert, and fully oriented. He is sitting on his bed, conversing normally, however he looks uncomfortable tremulous and diaphoretic. HEAD: No signs of trauma EYES: PERRLA, EOMI ENT: Moist mucosa NECK: Normal ROM. no JVD LUNGS: Breath sounds equal, clear to auscultation bilaterally. No wheezes, and no crackles HEART: Tachycardic, normal S1 and S2 ABDOMEN: No guarding, no rebound. No masses EXTREMITIES: Normal range of motion, no edema. Palpable pulses bilaterally. NEUROLOGICAL: Cranial nerves II through XII grossly intact. Normal speech, normal gait MDM: This is a 54 y/o male with a PMH of HTN and alcohol w/d with seizures presenting to the ED with a complaint of chest pain. He describes it more as a shortness of breath in the middle of his chest for the past two days that began while he was drinking. He denies any radiation, and says its worse when he lays flat. He also states that it hurts when he takes deep breaths. He reports that he normally drinks around 15 beers a day, but has been trying to cut back the past few days, and only had 10 this morning. Patient was here in October for alcohol withdrawal requiring numerous rounds of benzos in the ED. Unable to control his symptoms, and he was unable to protect his airway. Patient was intubated and transferred to ICU. r/o [place], ACS -CBC -CMP -Cardiac profile - EKG - CXR Patient is tremulous and diaphoretic. Will give him 50 librium and 2mg ativan for withdrawal symptoms and a CIWA of 15. 03/26/20 02:07 Patient is still tremulous with fasciculations - Will give 4mg lorazepam 03/26/20 02:40 - Consulted with Dr. Fontaine, ICU resident who will come see the patient. 03/26/20 04:27 CBC WBC 6.0 K/mm3 (4.0-10.0) 03/26/20 01:30 RBC 4.68 M/mm3 (4.00-5.60) 03/26/20 01:30 Hgb 15.0 GM/dL (11.7-16.9) 03/26/20 01:30 Hct 42.6 % (35.4-49) 03/26/20 01:30 MCV 91.0 fl (80-96) 03/26/20 01:30 MCH 32.1 pg (25.7-33.7) 03/26/20 01:30 MCHC 35.3 g/dl (32.0-35.9) 03/26/20 01:30 RDW 13.7 % (11.9-15.9) 03/26/20 01:30 Plt Count 411 K/MM3 (134-434) D 03/26/20 01:30 MPV 7.2 fl (7.5-11.1) L 03/26/20 01:30 Absolute Neuts (auto) 2.4 K/mm3 (1.5-8.0) 03/26/20 01:30 Neutrophils % 39.4 % (42.8-82.8) L D 03/26/20 01:30 Lymphocytes % 52.8 % (8-40) H D 03/26/20 01:30 Monocytes % 6.3 % (3.8-10.2) 03/26/20 01:30 Eosinophils % 1.2 % (0-4.5) D 03/26/20 01:30 Basophils % 0.3 % (0-2.0) 03/26/20 01:30 Nucleated RBC % 0 % (0-0) 03/26/20 01:30 No leukocytosis, no anemia CMP Sodium 138 mmol/L (136-145) 03/26/20 01:30 Potassium 3.9 mmol/L (3.5-5.1) 03/26/20 01:30 Chloride 104 mmol/L (98-107) 03/26/20 01:30 Carbon Dioxide 24 mmol/L (21-32) 03/26/20 01:30 Anion Gap 11 MMOL/L (8-16) 03/26/20 01:30 BUN 14.2 mg/dL (7-18) 03/26/20 01:30 Creatinine 1.0 mg/dL (0.55-1.3) 03/26/20 01:30 Est GFR (CKD-EPI)AfAm 99.15 03/26/20 01:30 Est GFR (CKD-EPI)NonAf 85.55 03/26/20 01:30 Random Glucose 124 mg/dL (74-106) H 03/26/20 01:30 Calcium 9.2 mg/dL (8.5-10.1) 03/26/20 01:30 Total Bilirubin 0.2 mg/dL (0.2-1) 03/26/20 01:30 AST 75 U/L (15-37) H 03/26/20 01:30 ALT 75 U/L (13-61) H 03/26/20 01:30 Alkaline Phosphatase 77 U/L (45-117) 03/26/20 01:30 Creatine Kinase 126 U/L (26-308) 03/26/20 01:30 Troponin I < 0.02 ng/ml (0.00-0.05) 03/26/20 01:30 B-Natriuretic Peptide 9.4 pg/ml (5-125) 03/26/20 01:30 Total Protein 9.1 g/dl (6.4-8.2) H 03/26/20 01:30 Albumin 3.9 g/dl (3.4-5.0) 03/26/20 01:30 Electrolytes WNL Negative troponin BNP WNL Elevated AST, ALT most likely 2/2 alcohol use Patient accepted to ICU Past History - Medical History Allergies/Adverse Reactions: Allergies Allergy/AdvReac Type Severity Reaction Status Date / Time shellfish derived Allergy Severe Verified 03/26/20 00:40 Home Medications: Ambulatory Orders Aspirin [Lo-Dose Aspirin EC] 81 mg PO DAILY 04/22/19 Amlodipine Besylate [Norvasc -] 10 mg PO DAILY 10/29/19 Hydrochlorothiazide 12.5 mg PO DAILY 10/29/19 Lisinopril [Prinivil -] 40 mg PO DAILY 10/29/19 Meloxicam 15 mg PO DAILY 10/29/19 Albuterol Sulfate Inhaler - [Ventolin HFA Inhaler -] 2 puff IH QID PRN 10/30/19 Cyclobenzaprine HCl 10 mg PO ASDIR PRN 10/30/19 Chlordiazepoxide [Librium -] 10 mg PO BID PRN #2 capsule MDD 20mg 10/31/19 Folic Acid 1 mg PO DAILY #30 tablet 10/31/19 Thiamine HCl [Vitamin B-1] 100 mg PO DAILY #30 tablet 10/31/19 Asthma: Yes COPD: No HTN: Yes Hypercholesterolemia: Yes - Immunization History Immunization Up to Date: No - Psycho-Social/Smoking History Smoking History: Never smoked Have you smoked in the past 12 months: No Information on smoking cessation initiated: No - Substance Abuse Hx (Audit-C & DAST Scrn) How often the patient has a drink containing alcohol: 2-4 times / month Number of drinks the patient has on a typical day: 3 or 4 How often the patient has six or more drinks on one occasion: Monthly Score: In Men: 4 or > Positive; In Women: 3 or > Positive: 5 Screen Result (Pos requires Nsg. Audit-10AR): Positive In the last yr the pt used illegal drug/Rx for NonMed reason: No Score: Yes response is considered Positive: 0 Screen Result (Positive result requires Nsg. DAST-10): Negative *Physical Exam - Vital Signs Last Vital Signs Temp Pulse Resp BP Pulse Ox 98.3 F 112 H 19 174/97 H 97 03/26/20 00:36 03/26/20 00:36 03/26/20 00:36 03/26/20 00:36 03/26/20 00:36 Heart Score/ECG Review - History History: Slightly suspicious - Electrocardiogram EKG: Non specific repolarization disturbance - Age Age: 45-65 - Risk Factors Risk Factors Heart Score: Yes Hx Hypertension Based on the list above the patient has:: 1-2 risk factors - Troponin Troponin: </= normal limit - Score Heart Score - Total: 3 - ECG Intrepretation Comment:: Normal sinus rhythm, possible left atrial enlargement, prolonged QT, abnormal EKG Vent rate 99bpm, IL interval 160ms, QRS duration 80ms, QT/QTc 378/485ms 03/26/20 04:30 EKG largely unchanged from 03/26/20 04:32 ED Treatment Course - LABORATORY CBC & Chemistry Diagram: 03/26/20 01:30 03/26/20 01:30 Discharge - Discharge Information Problems reviewed: Yes Clinical Impression/Diagnosis: Alcohol withdrawal Qualifiers: Complication of substance-induced condition: uncomplicated Qualified Code(s): F10.230 - Alcohol dependence with withdrawal, uncomplicated Chest pain Qualifiers: Chest pain type: unspecified Qualified Code(s): R07.9 - Chest pain, unspecified Condition: Fair - Admission Yes - Follow up/Referral - Patient Discharge Instructions - Post Discharge Activity CIWA Nausea/Vomitin-No Nausea/No Vomiting Muscle Tremors: 4-Moderate,w/Arms Extend Anxiety: 4-Mod. Anxious/Guarded Agitation: 1-Slight > Activity Paroxysmal Sweats: 2 Orientation: 0-Oriented Tacttile Disturbances: 0-None Auditory Disturbances: 0-None Visual Disturbances: 0-None Headache: 3-Moderate CIWA-Ar Total Score: 14
--- NOTE | 2020-03-26 00:55 | PDOC ---
Attending Attestation - Resident Resident Name: Dee Jamil - ED Attending Attestation I have performed the following: I have examined & evaluated the patient, The case was reviewed & discussed with the resident, I agree w/resident's findings & plan - HPI HPI: 03/26/20 02:40 see resident hpi - Physicial Exam PE: 03/26/20 02:41 see resident exam - Critical Care Time Total Critical Care Time: 60 Critical Care Statement: The care of this patient involved high complexity decision making to prevent further life threatening deterioration of the patient's condition and/or to evaluate & treat vital organ system(s) failure or risk of failure. - Medical Decision Making 03/26/20 02:41 54-year-old male complaining of shortness of breath and chest discomfort with admitted decrease in alcohol use over the last 2 days Patient has a history of severe alcohol withdrawal requiring intubation and ICU admission in October Initial CIWA score was 15-16, Librium 50 mg and Ativan 2 mg given on arrival ICU consult Discharge - Discharge Information Problems reviewed: Yes Clinical Impression/Diagnosis: Alcohol withdrawal Qualifiers: Complication of substance-induced condition: uncomplicated Qualified Code(s): F10.230 - Alcohol dependence with withdrawal, uncomplicated Chest pain Qualifiers: Chest pain type: unspecified Qualified Code(s): R07.9 - Chest pain, unspecified Condition: Fair - Follow up/Referral Referrals: Oscar Roldan MD [Primary Care Provider] - - Patient Discharge Instructions - Post Discharge Activity
[2020-03-26] MEDS ORDERED: chlordiazePOXIDE HCL 25 MG CAPSULE PO ONE (01:18)
[2020-03-26] MEDS ORDERED: FOLIC ACID INJECTION - 1 MG, THIAMINE HCL 100 MG, MULTIVIT INJECTION ADULT 10 ML in SOD... IVPB ONE (01:18)
[2020-03-26] MEDS ORDERED: LORazepam 2 MG/ML SDV VIAL ONE ×2 (01:34→03:35)
[2020-03-26] MEDS ORDERED: chlordiazePOXIDE HCL 25 MG CAPSULE ONE (01:34)
[2020-03-26 01:37] LABS: BASO % 0.3 % (0-2.0); EOS % 1.2 % (0-4.5); HEMATOCRIT 42.6 % (35.4-49); LYMPH % 52.8 % (8-40); MCH 32.1 pg (25.7-33.7); MCHC 35.3 g/dl (32.0-35.9); MEAN PLT VOLUME 7.2 fl (7.5-11.1); MONO % 6.3 % (3.8-10.2); NEUT % 39.4 % (42.8-82.8); PLATELET COUNT 411 K/MM3 (134-434); RBC 4.68 M/mm3 (4.00-5.60); RDW 13.7 % (11.9-15.9)
[2020-03-26 01:49] LABS: INR 0.96 (0.83-1.09); PROTHROMBIN TIME (PATIENT) 11.3 SEC (9.7-13.0)
[2020-03-26 02:01] LABS: ALBUMIN 3.9 g/dl (3.4-5.0); ALK PHOS 77 U/L (45-117); ANION GAP 11 MMOL/L (8-16); BILIRUBIN,TOTAL 0.2 mg/dL (0.2-1); BLOOD UREA NITROGEN 14.2 mg/dL (7-18); CALCIUM 9.2 mg/dL (8.5-10.1); CHLORIDE 104 mmol/L (98-107); CO2 24 mmol/L (21-32); POTASSIUM 3.9 mmol/L (3.5-5.1); SGOT/AST 75 U/L (15-37); SGPT/ALT 75 U/L (13-61); SODIUM 138 mmol/L (136-145); TOT PROT 9.1 g/dl (6.4-8.2)
[2020-03-26 02:10] LABS: GLUCOSE,RANDOM 124 mg/dL (74-106)
[2020-03-26 03:02] LABS: N-TERMINAL BNP 9.4 pg/ml (5-125)
--- NOTE | 2020-03-26 04:13 | CONSULT ---
Consultation: REQUESTING PROVIDER: CONSULT REQUEST: We have been asked to medically evaluate this patient for alcohol withdrawal with concern for delirium tremens. HISTORY OF PRESENT ILLNESS: This is a 54 year old male, with PMH of HTN, asthma, alcohol use disorder with previous admission to the hospital in 10/2019 for alcohol withdrawal requiring intubation. He presents to the ED with shortness of breath that started at 9PM last night, after his last drink. Pt admits to drinking 12 cans of beer today. Stated that this is his usual amount that he drinks, but has been attempting to cut down recently. Pt stated that his symptoms worsen with lying flat and improve with sitting up. Pt admits to having tremors, shortness of breath, anxiety and R-sided headache. Pt also admits to having chest pain that is pressure-like in nature. Pt denies nausea, vomiting, diaphoresis, numbness/tingling, auditory/visual disturbances or seizures. PMH: as per HPI PSH: denies SH: Former smoker, smoked 1 pack of cigarettes at 16 years old. Denies recreational drug use. Admits to drinking a 12-pack of beer daily. ED course: 50 mg Librium PO, 6 mg IV ativan REVIEW OF SYSTEMS: As per HPI PHYSICAL EXAMINATION Vital Signs - 24 hr 03/26/20 03/26/20 00:36 02:08 Temperature 98.3 F Pulse Rate 112 H Respiratory 19 Rate Blood Pressure 174/97 H O2 Sat by Pulse 97 95 Oximetry (%) GENERAL: Somnolent, lying with 45 degrees elevation of head. AAOx3. Not in acute distress. HEENT: NCAT, EOMI. LUNGS: clear to auscultation bilaterally. No wheezes. HEART: Regular rate and rhythm, normal S1 and S2 without murmur ABDOMEN: Obese, soft, nontender, not distended, bowel sounds present in all 4 quadrants. EXTREMITIES: Tremors present in extended b/l upper extremities. No edema. SKIN: Warm, dry NEURO: intoxicated, however mentating well and speaks in full sentences. CIWA 8 (after benzos given in ED) Laboratory Last Values WBC 6.0 K/mm3 (4.0-10.0) 03/26/20 01:30 RBC 4.68 M/mm3 (4.00-5.60) 03/26/20 01:30 Hgb 15.0 GM/dL (11.7-16.9) 03/26/20 01:30 Hct 42.6 % (35.4-49) 03/26/20 01:30 MCV 91.0 fl (80-96) 03/26/20 01:30 MCH 32.1 pg (25.7-33.7) 03/26/20 01:30 MCHC 35.3 g/dl (32.0-35.9) 03/26/20 01:30 RDW 13.7 % (11.9-15.9) 03/26/20 01:30 Plt Count 411 K/MM3 (134-434) D 03/26/20 01:30 MPV 7.2 fl (7.5-11.1) L 03/26/20 01:30 Absolute Neuts (auto) 2.4 K/mm3 (1.5-8.0) 03/26/20 01:30 Neutrophils % 39.4 % (42.8-82.8) L D 03/26/20 01:30 Lymphocytes % 52.8 % (8-40) H D 03/26/20 01:30 Monocytes % 6.3 % (3.8-10.2) 03/26/20 01:30 Eosinophils % 1.2 % (0-4.5) D 03/26/20 01:30 Basophils % 0.3 % (0-2.0) 03/26/20 01:30 Nucleated RBC % 0 % (0-0) 03/26/20 01:30 PT with INR 11.30 SEC (9.7-13.0) 03/26/20 01:30 INR 0.96 (0.83-1.09) 03/26/20 01:30 PTT (Actin FS) 32.0 SECONDS (25.2-36.5) 03/26/20 01:30 Sodium 138 mmol/L (136-145) 03/26/20 01:30 Potassium 3.9 mmol/L (3.5-5.1) 03/26/20 01:30 Chloride 104 mmol/L (98-107) 03/26/20 01:30 Carbon Dioxide 24 mmol/L (21-32) 03/26/20 01:30 Anion Gap 11 MMOL/L (8-16) 03/26/20 01:30 BUN 14.2 mg/dL (7-18) 03/26/20 01:30 Creatinine 1.0 mg/dL (0.55-1.3) 03/26/20 01:30 Est GFR (CKD-EPI)AfAm 99.15 03/26/20 01:30 Est GFR (CKD-EPI)NonAf 85.55 03/26/20 01:30 Random Glucose 124 mg/dL (74-106) H 03/26/20 01:30 Calcium 9.2 mg/dL (8.5-10.1) 03/26/20 01:30 Total Bilirubin 0.2 mg/dL (0.2-1) 03/26/20 01:30 AST 75 U/L (15-37) H 03/26/20 01:30 ALT 75 U/L (13-61) H 03/26/20 01:30 Alkaline Phosphatase 77 U/L (45-117) 03/26/20 01:30 Creatine Kinase 126 U/L (26-308) 03/26/20 01:30 Troponin I < 0.02 ng/ml (0.00-0.05) 03/26/20 01:30 B-Natriuretic Peptide 9.4 pg/ml (5-125) 03/26/20 01:30 Total Protein 9.1 g/dl (6.4-8.2) H 03/26/20 01:30 Albumin 3.9 g/dl (3.4-5.0) 03/26/20 01:30 Alcohol, Quantitative 126.2 mg/dL (0.0-5.0) H 03/26/20 01:30 Active Medications Folic Acid 1 mg/ Thiamine HCl 100 mg/ Multivitamins/Minerals 10 ml/ Sodium Chloride 1,000 mls @ 125 mls/hr IVPB ONCE ONE Stop: 03/26/20 09:17 Last Admin: 03/26/20 02:06 Dose: 125 mls/hr Documented by: ASSESSMENT/PLAN: This is a 54 year old male, with PMH of HTN, asthma, alcohol use disorder with previous admission to the hospital in 10/2019 for alcohol withdrawal requiring intubation. Given pt's history (previous admission for alcohol withdrawal, history of intubation), physical exam (tremors, CIWA 8), lab values (quantitative alcohol 126.2), CXR without infiltrate or effusion, pt likely has alcohol intoxication with concern for delirium tremens. Given 2 mg Ativan and 50 mg Librium in the ED. #Neuro/Psych Alcohol use disorder, with hx of delirium tremens/withdrawal seizures -Ativan PRN for CIWA >8 -Thiamine/folate/MVI -Continue IV hydration -Fall/aspiration/seizure precautions, HOB elevated -neuro checks -would likely benefit from detox consult; at this time, pt refuses rehab at [facility]. -Check utox, ammonia #Cardio Chest pain, r/o ACS Tachycardia, likely due to withdrawal HTN, not well-controlled at this time, likely due to withdrawal -Home dose lisinopril, hydrochlorothiazide, amlodipine, ASA -Check EKG -trend trops -Prior echo 10/30/2019, showed impaired relaxation, EF 65-70%; Would consider further imaging if chest pain persists or trops rise. #Pulm Asthma -CXR without infiltrate or effusion -Aspiration precautions -continue home dose bronchodilators. #GI Transaminitis -Avoid librium -Check abd ultrasound to r/o ascites, hepatitis panel #FEN -Continue banana bag; continue NS @ 100 thereafter -Replete lytes PRN -NPO, until mental status improves #Ppx -DVT: SQH -GI: PPI Dispo: We will continue to follow the patient. Thank you for this consultative opportunity. Visit type - Emergency Visit Emergency Visit: Yes ED Registration Date: 03/26/20 Care time: The patient presented to the Emergency Department on the above date and was hospitalized for further evaluation of their emergent condition. - New Patient This patient is new to me today: Yes Date on this admission: 03/26/20 - Critical Care Critical Care patient: Yes Total Critical Care Time (in minutes): 37 Critical Care Statement: The care of this patient involved high complexity decision making to prevent further life threatening deterioration of the patient's condition and/or to evaluate & treat vital organ system(s) failure or risk of failure. ATTENDING PHYSICIAN STATEMENT I saw and evaluated the patient. I reviewed the resident's note and discussed the case with the resident. I agree with the resident's findings and plan as documented. SUBJECTIVE: OBJECTIVE: ASSESSMENT AND PLAN:
[2020-03-26] MEDS ORDERED: LORazepam 2 MG/ML SDV VIAL IVPUSH PRN (04:17)
[2020-03-26] MEDS ORDERED: SODIUM CHLORIDE 1,000 ML IV SCH (04:30)
[2020-03-26 07:06] LABS: BASO % 1.2 % (0-2.0); EOS % 1.8 % (0-4.5); HEMATOCRIT 39.2 % (35.4-49); HEMOGLOBIN 13.4 GM/dL (11.7-16.9); LYMPH % 48.8 % (8-40); MCHC 34.1 g/dl (32.0-35.9); MEAN CELL VOLUME 90.7 fl (80-96); MEAN PLT VOLUME 7.2 fl (7.5-11.1); NEUT % 40.2 % (42.8-82.8); PLATELET COUNT 362 K/MM3 (134-434); RBC 4.33 M/mm3 (4.00-5.60); RDW 13.6 % (11.9-15.9); WHITE BLOOD COUNT 4.4 K/mm3 (4.0-10.0)
[2020-03-26 07:32] LABS: METHADONE, UR NEGATIVE ng/ml (CUTOFF=300); OPIATES, URI NEGATIVE ng/ml (CUTOFF=300); PHENCYCLIDINE,URINE NEGATIVE ng/ml (CUTOFF=25); URINE AMPHETAMINES NEGATIVE ng/ml (CUTOFF=500); URINE BARBITURATES NEGATIVE ng/ml (CUTOFF=200); URINE BENZODIAZEPINES NEGATIVE ng/ml (CUTOFF=200)
[2020-03-26 07:39] LABS: COCAINE, UR NEGATIVE ng/ml (CUTOFF=300)
[2020-03-26 07:43] LABS: ALBUMIN 3.3 g/dl (3.4-5.0); ALK PHOS 63 U/L (45-117); ANION GAP 10 MMOL/L (8-16); BILIRUBIN,TOTAL 0.4 mg/dL (0.2-1); BLOOD UREA NITROGEN 13.9 mg/dL (7-18); CALCIUM 8.5 mg/dL (8.5-10.1); CHLORIDE 108 mmol/L (98-107); CO2 23 mmol/L (21-32); CREATININE 0.8 mg/dL (0.55-1.3); GLUCOSE,RANDOM 105 mg/dL (74-106); LIPASE 95 U/L (73-393); MAGNESIUM 2.3 mg/dL (1.8-2.4); PHOSPHOROUS 3.4 mg/dL (2.5-4.9); POTASSIUM 4.1 mmol/L (3.5-5.1); SGOT/AST 56 U/L (15-37); SGPT/ALT 61 U/L (13-61); SODIUM 141 mmol/L (136-145); TOT PROT 7.9 g/dl (6.4-8.2)
[2020-03-26] MEDS: HEPARIN NA (PORCINE) 5,000 UNITS/ML 1ML VIAL SQ SCH ×3 (07:57→20:59)
[2020-03-26 08:15] LABS: URINE APPEARANCE CLEAR; URINE BILIRUBIN NEGATIVE (NEGATIVE); URINE COLOR YELLOW; URINE GLUCOSE (UA) NEGATIVE (NEGATIVE); URINE KETONE NEGATIVE (NEGATIVE); URINE LEUK ESTERASE NEGATIVE (NEGATIVE); URINE NITRITE NEGATIVE (NEGATIVE); URINE PROTEIN NEGATIVE (NEGATIVE); URINE UROBILINOGEN 0.2 mg/dL (0.2-1.0)
[2020-03-26 08:25] VITALS: BMI 16.7
[2020-03-26] MEDS ORDERED: THIAMINE HCL 100 MG TABLET (FP) PO SCH (10:00)
[2020-03-26] MEDS ORDERED: PANTOPRAZOLE SODIUM 40 MG VIAL IVPUSH SCH (10:00)
[2020-03-26] MEDS ORDERED: MULTIVITAMINS (DAILY MVI) TABLET (FP) PO SCH (10:00)
[2020-03-26] MEDS ORDERED: FOLIC ACID 1 MG TABLET (FP) PO SCH (10:00)
[2020-03-26] MEDS ORDERED: PT OWN MED DRAWER 7, Y5N ONE ×2 (10:40→20:59)
[2020-03-26] MEDS: MUPIROCIN 2% TOPICAL OINTMENT FOR DECOLONIZATION NS SCH ×2 (10:42→20:59)
--- NOTE | 2020-03-26 11:36 | PN ---
Physical Exam: TRANSFER SUMMARY Patient is a 54 year old male, with PMH of HTN, asthma, alcohol use disorder with previous admission to the hospital in 10/2019 for alcohol withdrawal requiring intubation. He presented to the ED with subjective dyspnea and chest pressure that started at 9PM last night, after his last drink. He has had recent attempts to stop drinking, decreasing from his usual 12 beer cans a day. Pt was given Ativan and Librium in ED. At time of admission, CIWA was 8 with benzos on board. He has been hemodynamically stable, intermittently tachycardic to 100s, afebrile, and saturating well on RA. He had slightly elevated ALT and AST with positive ETOH, but otherwise normal labs. CXR did not show evidence of aspiration PNA. He was given IV fluids, thiamine, folate, MV, and pantoprazole. He has not been requiring PRN Ativan. Pt is able to be monitored on med/surg floor. He is not currently interested in detox or rehab at [facility]. #alcohol use disorder with hx of DTs and withdrawal seizures requiring intubation -Ativan PRN for CIWA >8 -Thiamine/folate/MVI -Continue IV hydration -Fall/aspiration/seizure precautions, HOB elevated -neuro checks -continue discussions for rehab #asthma -CXR without infiltrate or effusion -aspiration precautions -continue home dose bronchodilators #chest pain -ACS r/o -trop negative x2 -EKG -ASA -Prior echo 10/30/2019, showed impaired relaxation, EF 65-70% #HTN -home lisinopril, amlodipine today -hold HCTZ unless pressure not controlled #transaminitis -Avoid librium -hepatitis panel pending -abdominal ultrasound DVT Ppx heparin GI Ppx pantoprazole FEN NS 100mL/hr monitor liver enzymes sodium controlled diet SUBJECTIVE: Patient seen and examined. He reports intermittent shortness of breath and some shakiness. Chest pressure is resolved. OBJECTIVE: Vital Signs Period Temp Pulse Resp BP Sys/Hoyt Pulse Ox Last 24 Hr 97.6 F-98.3 F 94-112 16-25 136-174/79-97 95-97 GENERAL: The patient is awake, alert, and fully oriented, in no acute distress. HEAD: Normal with no signs of trauma. EYES: PERRL, extraocular movements intact, conjunctiva clear. ENT: Ears normal, nares patent, moist mucous membranes. NECK: Trachea midline, full range of motion. LUNGS: Clear to auscultation bilaterally, no accessory muscle use. HEART: Regular rate and rhythm, no murmur. ABDOMEN: Soft, nontender, nondistended, normoactive bowel sounds. EXTREMITIES: Warm, well-perfused, no edema. NEUROLOGICAL: Cranial nerves II through XII grossly intact. Normal speech. PSYCH: Normal mood, normal affect. SKIN: Warm, dry, normal turgor. Laboratory Results - last 24 hr 03/26/20 03/26/20 03/26/20 01:30 01:30 01:30 WBC 6.0 RBC 4.68 Hgb 15.0 Hct 42.6 MCV 91.0 MCH 32.1 MCHC 35.3 RDW 13.7 Plt Count 411 D MPV 7.2 L Absolute Neuts (auto) 2.4 Neutrophils % 39.4 L D Lymphocytes % 52.8 H D Monocytes % 6.3 Eosinophils % 1.2 D Basophils % 0.3 Nucleated RBC % 0 PT with INR 11.30 INR 0.96 PTT (Actin FS) 32.0 Sodium 138 Potassium 3.9 Chloride 104 Carbon Dioxide 24 Anion Gap 11 BUN 14.2 Creatinine 1.0 Est GFR (CKD-EPI)AfAm 99.15 Est GFR (CKD-EPI)NonAf 85.55 Random Glucose 124 H Calcium 9.2 Phosphorus Magnesium Total Bilirubin 0.2 AST 75 H ALT 75 H Alkaline Phosphatase 77 Ammonia Creatine Kinase 126 Troponin I < 0.02 B-Natriuretic Peptide 9.4 Total Protein 9.1 H Albumin 3.9 Lipase Urine Color Urine Appearance Urine pH Ur Specific [place]im Urine Protein Urine Glucose (UA) Urine Ketones Urine Blood Urine Nitrite Urine Bilirubin Urine Urobilinogen Ur Leukocyte Esterase Opiates Screen Methadone Screen Barbiturate Screen Phencyclidine Screen Ur Amphetamines Screen MDMA (Ecstasy) Screen Benzodiazepines Screen Cocaine Screen U Marijuana (THC) Screen Alcohol, Quantitative 126.2 H 03/26/20 03/26/20 03/26/20 06:13 06:13 06:13 WBC 4.4 RBC 4.33 Hgb 13.4 Hct 39.2 MCV 90.7 MCH 31.0 MCHC 34.1 RDW 13.6 Plt Count 362 MPV 7.2 L Absolute Neuts (auto) 1.8 Neutrophils % 40.2 L Lymphocytes % 48.8 H Monocytes % 8.0 Eosinophils % 1.8 Basophils % 1.2 D Nucleated RBC % 0 PT with INR INR PTT (Actin FS) Sodium 141 Potassium 4.1 Chloride 108 H Carbon Dioxide 23 Anion Gap 10 BUN 13.9 Creatinine 0.8 Est GFR (CKD-EPI)AfAm 118.20 Est GFR (CKD-EPI)NonAf 101.99 Random Glucose 105 Calcium 8.5 Phosphorus 3.4 Magnesium 2.3 Total Bilirubin 0.4 AST 56 H ALT 61 Alkaline Phosphatase 63 Ammonia 33.60 H Creatine Kinase 103 Troponin I < 0.02 B-Natriuretic Peptide Total Protein 7.9 Albumin 3.3 L Lipase 95 Urine Color Urine Appearance Urine pH Ur Specific [place] Urine Protein Urine Glucose (UA) Urine Ketones Urine Blood Urine Nitrite Urine Bilirubin Urine Urobilinogen Ur Leukocyte Esterase Opiates Screen Methadone Screen Barbiturate Screen Phencyclidine Screen Ur Amphetamines Screen MDMA (Ecstasy) Screen Benzodiazepines Screen Cocaine Screen U Marijuana (THC) Screen Alcohol, Quantitative 03/26/20 03/26/20 03/26/20 06:40 06:40 07:00 WBC RBC Hgb Hct MCV MCH MCHC RDW Plt Count MPV Absolute Neuts (auto) Neutrophils % Lymphocytes % Monocytes % Eosinophils % Basophils % Nucleated RBC % PT with INR INR PTT (Actin FS) Sodium Potassium Chloride Carbon Dioxide Anion Gap BUN Creatinine Est GFR (CKD-EPI)AfAm Est GFR (CKD-EPI)NonAf Random Glucose Calcium Phosphorus Magnesium Total Bilirubin AST ALT Alkaline Phosphatase Ammonia Creatine Kinase Troponin I B-Natriuretic Peptide Total Protein Albumin Lipase Urine Color Yellow Urine Appearance Clear Urine pH 5.0 D Ur Specific [place]im 1.007 L Urine Protein Negative Urine Glucose (UA) Negative Urine Ketones Negative Urine Blood Negative Urine Nitrite Negative Urine Bilirubin Negative Urine Urobilinogen 0.2 Ur Leukocyte Esterase Negative Opiates Screen Negative Methadone Screen Negative Barbiturate Screen Negative Phencyclidine Screen Negative Ur Amphetamines Screen Negative MDMA (Ecstasy) Screen Negative Benzodiazepines Screen Negative Cocaine Screen Negative U Marijuana (THC) Screen Negative Alcohol, Quantitative 24.9 H Active Medications Generic Name Dose Route Start Last Admin Trade Name Freq PRN Reason Stop Dose Admin Chlorhexidine Gluconate 1 applic 03/26/20 22:00 Hibiclens For Decolonization - TP HS MIAH Folic Acid 1 mg 03/26/20 10:00 03/26/20 10:42 Folic Acid - PO 1 mg DAILY MIAH Administration Heparin Sodium (Porcine) 5,000 unit 03/26/20 06:00 03/26/20 07:57 Heparin - SQ 5,000 unit TID MIAH Administration Sodium Chloride 1,000 mls @ 100 mls/hr 03/26/20 04:30 03/26/20 08:01 Normal Saline - IV 100 mls/hr ASDIR MIAH Administration Lorazepam 2 mg 03/26/20 04:17 Ativan Injection - IVPUSH Q2H PRN ANXIETY Multivitamins/Minerals/Vitamin C 1 tab 03/26/20 10:00 03/26/20 10:42 Tab-A-Vit - PO 1 tab DAILY MIAH Administration Mupirocin 1 applic 03/26/20 10:00 03/26/20 10:42 Bactroban Ointment (For Decolonization) - NS 03/31/20 09:59 1 applic BID MIAH Administration Pantoprazole Sodium 40 mg 03/26/20 10:00 03/26/20 10:42 Protonix Iv IVPUSH 40 mg DAILY MIAH Administration Thiamine HCl 100 mg 03/26/20 10:00 03/26/20 10:43 Vitamin B1 - PO 100 mg DAILY MIAH Administration Visit type - Emergency Visit Emergency Visit: Yes ED Registration Date: 03/26/20 Care time: The patient presented to the Emergency Department on the above date and was hospitalized for further evaluation of their emergent condition. - New Patient This patient is new to me today: Yes Date on this admission: 03/26/20 - Critical Care Critical Care patient: Yes Total Critical Care Time (in minutes): 36 Critical Care Statement: The care of this patient involved high complexity decision making to prevent further life threatening deterioration of the patient's condition and/or to evaluate & treat vital organ system(s) failure or risk of failure. ATTENDING PHYSICIAN STATEMENT I saw and evaluated the patient. I reviewed the resident's note and discussed the case with the resident. I agree with the resident's findings and plan as documented. SUBJECTIVE: OBJECTIVE: ASSESSMENT AND PLAN:
[2020-03-26] MEDS ORDERED: ALBUTEROL SO4 HFA INHALER IH PRN (12:02)
--- NOTE | 2020-03-26 12:15 | PN ---
Teaching Attending Note Name of Resident: Ayaka Torres ATTENDING PHYSICIAN STATEMENT I saw and evaluated the patient. I reviewed the resident's note and discussed the case with the resident. I agree with the resident's findings and plan as documented. SUBJECTIVE: Pt seen and examined in the ICU. Feels better today. Still feels a little t remulous. No fevers, chills. Breathing better. OBJECTIVE: Vital Signs Period Temp Pulse Resp BP Sys/Hoyt Pulse Ox Last 24 Hr 97.6 F-98.3 F 94-112 16-25 136-174/79-97 95-97 Intake & Output 03/23/20 03/24/20 03/25/20 03/26/20 23:59 23:59 23:59 23:59 Weight 51.256 kg Gen: NAD at rest Heart: RRR Lung: decreased breath sounds at the bases Abd: soft, nontender Ext: no edema CBC, BMP 03/26/20 06:13 03/26/20 06:13 Active Medications Albuterol Sulfate (Ventolin Hfa Inhaler -) 2 puff IH QID PRN PRN Reason: SHORT OF BREATH/WHEEZING Amlodipine Besylate (Norvasc -) 10 mg PO DAILY [facility] Aspirin (Ecotrin -) 81 mg PO DAILY [facility] Chlorhexidine Gluconate (Hibiclens For Decolonization -) 1 applic TP HS [facility] Folic Acid (Folic Acid -) 1 mg PO DAILY [facility] Last Admin: 03/26/20 10:42 Dose: 1 mg Documented by: Heparin Sodium (Porcine) (Heparin -) 5,000 unit SQ TID [facility] Last Admin: 03/26/20 07:57 Dose: 5,000 unit Documented by: Sodium Chloride (Normal Saline -) 1,000 mls @ 100 mls/hr IV ASDIR [facility] Last Admin: 03/26/20 08:01 Dose: 100 mls/hr Documented by: Lisinopril (Prinivil) 40 mg PO DAILY [facility] Lorazepam (Ativan Injection -) 2 mg IVPUSH Q2H PRN PRN Reason: ANXIETY Multivitamins/Minerals/Vitamin C (Tab-A-Vit -) 1 tab PO DAILY [facility] Last Admin: 03/26/20 10:42 Dose: 1 tab Documented by: Mupirocin (Bactroban Ointment (For Decolonization) -) 1 applic NS BID [facility] Stop: 03/31/20 09:59 Last Admin: 03/26/20 10:42 Dose: 1 applic Documented by: Pantoprazole Sodium (Protonix Iv) 40 mg IVPUSH DAILY [facility] Last Admin: 03/26/20 10:42 Dose: 40 mg Documented by: Thiamine HCl (Vitamin B1 -) 100 mg PO DAILY [facility] Last Admin: 03/26/20 10:43 Dose: 100 mg Documented by: ASSESSMENT AND PLAN: Acute Alcohol Intoxication Alcohol Dependence HTN Asthma Elevated LFTs from above - continue IVF, vitamins - ativan as needed - monitor for withdrawal symptoms - can monitor on floor
--- NOTE | 2020-03-26 13:13 | EKG ---
Test Reason : Blood Pressure : / mmHG Vent. Rate : 099 BPM Atrial Rate : 099 BPM P-R Int : 160 ms QRS Dur : 080 ms QT Int : 378 ms P-R-T Axes : 047 002 046 degrees QTc Int : 485 ms NORMAL SINUS RHYTHM POSSIBLE LEFT ATRIAL ENLARGEMENT PROLONGED QT ABNORMAL ECG WHEN COMPARED WITH ECG OF 28-OCT-2019 18:58, CRITERIA FOR SEPTAL INFARCT ARE NO LONGER PRESENT Confirmed by Mariusz Torre ([id number]) on 03/26/2020 1:12:41 PM Referred By: Confirmed By:Mariusz Torre
[2020-03-26] MEDS ORDERED: CYCLOBENZAPRINE HCL 10 MG TABLET (FP) PO PRN (13:26)
[2020-03-26] MEDS: LISINOPRIL 20 MG TABLET (FP) PO SCH (13:29)
[2020-03-26] MEDS: ASPIRIN COATED 81 MG TABLET.EC PO SCH (13:29)
[2020-03-26] MEDS: amLODIPine BESYLATE 10 MG TABLET (FP) PO SCH (13:30)
--- NOTE | 2020-03-26 14:06 | HOSP ---
Subjective - Review of Symptoms Events since last encounter: ACCEPTANCE NOTE: Pt seen and assessed bedside in ICU. Seen stable, AAOx3, NAD, on RA. Pt accepted for transfer from ICU to med-surg. Physical Examination Vital Signs: Vital Signs Temperature 97.9 F 03/26/20 12:00 Pulse Rate 94 H 03/26/20 12:00 Respiratory Rate 23 H 03/26/20 12:00 Blood Pressure 149/94 03/26/20 12:00 O2 Sat by Pulse Oximetry (%) 95 03/26/20 12:00 GENERAL: The patient is awake, alert, and fully oriented, in no acute distress. HEAD: Normal with no signs of trauma. EYES: PERRL, extraocular movements intact, conjunctiva clear. ENT: Ears normal, nares patent, moist mucous membranes. NECK: Trachea midline, full range of motion. LUNGS: Clear to auscultation bilaterally, no accessory muscle use. HEART: Regular rate and rhythm, no murmur. ABDOMEN: Soft, nontender, nondistended, normoactive bowel sounds. EXTREMITIES: Warm, well-perfused, no edema. NEUROLOGICAL: Cranial nerves II through XII grossly intact. Normal speech. PSYCH: Normal mood, normal affect. SKIN: Warm, dry, normal turgor. Labs: CBC, BMP 03/26/20 06:13 03/26/20 06:13 Visit type - Emergency Visit Emergency Visit: Yes ED Registration Date: 03/26/20 Care time: The patient presented to the Emergency Department on the above date and was hospitalized for further evaluation of their emergent condition. - New Patient This patient is new to me today: Yes Date on this admission: 03/26/20 - Critical Care Critical Care patient: No
[2020-03-26] MEDS ORDERED: CHLORHEXIDINE GLUCONATE 4% CLEANSER FOR DECOLONIZATION TP SCH (22:00)
[2020-03-27] MEDS: LORazepam 2 MG/ML SDV VIAL IVPUSH PRN ×2 (00:33→13:14)
[2020-03-27] MEDS: HEPARIN NA (PORCINE) 5,000 UNITS/ML 1ML VIAL SQ SCH ×3 (05:31→21:26)
[2020-03-27] MEDS: PANTOPRAZOLE SODIUM 40 MG VIAL IVPUSH SCH (09:32)
[2020-03-27] MEDS: MULTIVITAMINS (DAILY MVI) TABLET (FP) PO SCH (09:32)
[2020-03-27] MEDS: ASPIRIN COATED 81 MG TABLET.EC PO SCH (09:33)
[2020-03-27] MEDS: THIAMINE HCL 100 MG TABLET (FP) PO SCH (09:33)
[2020-03-27] MEDS: amLODIPine BESYLATE 10 MG TABLET (FP) PO SCH (09:33)
[2020-03-27] MEDS: LISINOPRIL 20 MG TABLET (FP) PO SCH (09:33)
[2020-03-27] MEDS: FOLIC ACID 1 MG TABLET (FP) PO SCH (09:33)
[2020-03-27] MEDS ORDERED: MUPIROCIN 2% TOPICAL OINTMENT FOR DECOLONIZATION NS SCH (10:00)
--- NOTE | 2020-03-27 13:44 | PN ---
Physical Exam: SUBJECTIVE: Patient seen and examined at bedside. Patient appears to be in no acute distress. Patient reports not being able to sleep soundly at night. Patient denies abdominal pain or any extensive or concerning overnight events. Patient denies wanting to go to rehab and claims he is strong enough to quit on his own at home. OBJECTIVE: Vital Signs Period Temp Pulse Resp BP Sys/Hoyt Pulse Ox Last 24 Hr 97.3 F-98.8 F 86-105 17-28 116-154/66-108 94-98 GENERAL: The patient is awake, alert, and fully oriented, in no acute distress. HEAD: Normal with no signs of trauma. LUNGS: Breath sounds equal, clear to auscultation bilaterally, no wheezes, no crackles, no accessory muscle use. HEART: Regular rate and rhythm, S1, S2 without murmur, rub or gallop. ABDOMEN: Soft, nontender, nondistended, normoactive bowel sounds, no guarding, no rebound, no hepatosplenomegaly, no masses. EXTREMITIES: 2+ pulses, warm, well-perfused, no edema. SKIN: Warm, dry, normal turgor, no rashes or lesions noted Laboratory Results - last 24 hr 03/26/20 03/26/20 06:13 06:13 Hep B Core IgM Ab Negative Hepatitis C Ab (EIA) >11.0 H Active Medications Generic Name Dose Route Start Last Admin Trade Name Freq PRN Reason Stop Dose Admin Albuterol Sulfate 2 puff 03/26/20 12:02 03/26/20 13:46 Ventolin Hfa Inhaler - IH 2 puff QID PRN Administration SHORT OF BREATH/WHEEZING Amlodipine Besylate 10 mg 03/26/20 12:15 03/27/20 09:33 Norvasc - PO 10 mg DAILY MIAH Administration Aspirin 81 mg 03/26/20 12:15 03/27/20 09:33 Ecotrin - PO 81 mg DAILY MIAH Administration Cyclobenzaprine HCl 10 mg 03/26/20 13:26 Flexeril - PO DAILY PRN MUSCLE SPASMS Folic Acid 1 mg 03/27/20 10:00 03/27/20 09:33 Folic Acid - PO 1 mg DAILY MIAH Administration Heparin Sodium (Porcine) 5,000 unit 03/27/20 06:00 03/27/20 13:11 Heparin - SQ 5,000 unit TID MIAH Administration Lisinopril 40 mg 03/26/20 12:15 03/27/20 09:33 Prinivil PO 40 mg DAILY MIAH Administration Lorazepam 2 mg 03/27/20 00:12 03/27/20 13:14 Ativan Injection - IVPUSH 2 mg Q2H PRN Administration ANXIETY Multivitamins/Minerals/Vitamin C 1 tab 03/27/20 10:00 03/27/20 09:32 Tab-A-Vit - PO 1 tab DAILY MIAH Administration Pantoprazole Sodium 40 mg 03/27/20 10:00 03/27/20 09:32 Protonix Iv IVPUSH 40 mg DAILY MIAH Administration Thiamine HCl 100 mg 03/27/20 10:00 03/27/20 09:33 Vitamin B1 - PO 100 mg DAILY MIAH Administration ASSESSMENT/PLAN: Mr. Newman is a 54M with a h/o HTN and EtOH abuse presenting to the floors after being transfered from the ICU. Patient had prior admission and intubation in the ICU for delirium tremens in oct. Patient was stabilized in ICU and is being monitored on med/surg for alcohol withdrawal. #EtOH withdrawal - CIWA down from 14 --> 5 - Patient has residual hand tremors - tongue fasiculations - patient on librium and ativan protocol - LFT trending down - will monitor for ssx of alcohol withdrawal for 24 hours - ativan PRN #HTN - continue home medications #FEN - regular diet - monitor electrolytes - repleating if necessary #DVT prophylaxis - SQ lovenox ATTENDING PHYSICIAN STATEMENT I saw and evaluated the patient. I reviewed the resident's note and discussed the case with the resident. I agree with the resident's findings and plan as documented. SUBJECTIVE: OBJECTIVE: ASSESSMENT AND PLAN:
--- NOTE | 2020-03-27 13:51 | PN ---
Teaching Attending Note Name of Resident: Jaciel Ferrer ATTENDING PHYSICIAN STATEMENT I saw and evaluated the patient. I reviewed the resident's note and discussed the case with the resident. I agree with the resident's findings and plan as documented. SUBJECTIVE: Seen and examined at bedside. Patient with hand tremors and tongue fascicu lations but otherwise appears comfortable. Denies chest pain, shortness of breath, dizziness. OBJECTIVE: Last Vital Signs Temp Pulse Resp BP Pulse Ox 97.6 F 91 H 18 119/73 98 03/27/20 13:22 03/27/20 13:22 03/27/20 13:22 03/27/20 13:22 03/27/20 13:22 PE: Per resident note Labs/Imaging: reviewed ASSESSMENT AND PLAN: 51-year-old male with a past medical history of hypertension, asthma, alcohol abuse with past admissions for delirium tremens with intubation. Pt stabalized in ICU and downgraded to floor. #EtOH withdrawal Pt declines [facility]. States he can quit on his own Ativan protocol per CIWA score Monitor for additional 24 hours Thiamine, folic acid, multivitamin #Hypertension Continue home medications #DVT prophylaxis: Lovenox
[2020-03-27 20:07] LABS: HEP B CORE AB, TOT Negative (Negative)
[2020-03-28] MEDS: HEPARIN NA (PORCINE) 5,000 UNITS/ML 1ML VIAL SQ SCH (05:29)
[2020-03-28 08:43] LABS: HEMATOCRIT 38.5 % (35.4-49); HEMOGLOBIN 13.5 GM/dL (11.7-16.9); MCH 32.2 pg (25.7-33.7); MCHC 35.1 g/dl (32.0-35.9); MEAN CELL VOLUME 91.7 fl (80-96); MEAN PLT VOLUME 7.9 fl (7.5-11.1); PLATELET COUNT 300 K/MM3 (134-434); RBC 4.19 M/mm3 (4.00-5.60); RDW 13.7 % (11.9-15.9); WHITE BLOOD COUNT 4.2 K/mm3 (4.0-10.0)
[2020-03-28 09:16] LABS: ALBUMIN 3.2 g/dl (3.4-5.0); BILIRUBIN,TOTAL 0.5 mg/dL (0.2-1); BLOOD UREA NITROGEN 16.5 mg/dL (7-18); CALCIUM 8.7 mg/dL (8.5-10.1); CREATININE 0.8 mg/dL (0.55-1.3); MAGNESIUM 2.4 mg/dL (1.8-2.4); PHOSPHOROUS 3.4 mg/dL (2.5-4.9); POTASSIUM 3.7 mmol/L (3.5-5.1); TOT PROT 7.5 g/dl (6.4-8.2)
[2020-03-28] MEDS: ASPIRIN COATED 81 MG TABLET.EC PO SCH (09:36)
[2020-03-28] MEDS: amLODIPine BESYLATE 10 MG TABLET (FP) PO SCH (09:36)
[2020-03-28] MEDS: PANTOPRAZOLE SODIUM 40 MG VIAL IVPUSH SCH (09:36)
[2020-03-28] MEDS: FOLIC ACID 1 MG TABLET (FP) PO SCH (09:36)
[2020-03-28] MEDS: MULTIVITAMINS (DAILY MVI) TABLET (FP) PO SCH (09:37)
[2020-03-28] MEDS: THIAMINE HCL 100 MG TABLET (FP) PO SCH (09:37)
[2020-03-28] MEDS: LISINOPRIL 20 MG TABLET (FP) PO SCH (09:37)
[2020-03-28 12:05] VITALS: BP 143/95; PULSE 89; TEMP 98.5
--- NOTE | 2020-03-28 14:17 | PN ---
Teaching Attending Note Name of Resident: Ernie Dwyer ATTENDING PHYSICIAN STATEMENT I saw and evaluated the patient. I reviewed the resident's note and discussed the case with the resident. I agree with the resident's findings and plan as documented. SUBJECTIVE: Seen and examined at bedside. Patient reports feeling much better. Is hemodyna mically stable. Has no hand tremors or tongue fasciculations. Has not received any Ativan in 24 hours. Patient is medically cleared for discharge and will be sent home on his home medications. OBJECTIVE: Last Vital Signs Temp Pulse Resp BP Pulse Ox 97.6 F 91 H 18 119/73 98 03/27/20 13:22 03/27/20 13:22 03/27/20 13:22 03/27/20 13:22 03/27/20 13:22 PE: Per resident note Labs/Imaging: reviewed ASSESSMENT AND PLAN: 51-year-old male with a past medical history of hypertension, asthma, alcohol abuse with past admissions for delirium tremens with intubation. Pt stabalized in ICU and downgraded to floor. Patient now stabilized and has no withdrawal symptoms after 24 hours off Ativan. Patient is medically cleared for discharge on his home medications. Patient was offered [facility] multiple times and resources for alcohol abstinence but refused.
--- NOTE | 2020-03-28 14:25 | DS ---
Physical Exam: SUBJECTIVE: Patient seen and examined at bedside. Patient looks happier and less anxious than yesterday. Patient endorses feeling much better than on arrival. Patients tremors and tongue fasciculation have resolved. OBJECTIVE: Vital Signs Period Temp Pulse Resp BP Sys/Hoyt Pulse Ox Last 24 Hr 98 F-98.7 F 87-92 18-18 128-143/81-95 93-96 PHYSICAL EXAM GENERAL: The patient is awake, alert, and fully oriented, in no acute distress. HEAD: Normal with no signs of trauma. LUNGS: Breath sounds equal, clear to auscultation bilaterally, no wheezes, no crackles, no accessory muscle use. HEART: Regular rate and rhythm, S1, S2 without murmur, rub or gallop. ABDOMEN: Soft, nontender, nondistended, normoactive bowel sounds, no guarding, no rebound, no hepatosplenomegaly, no masses. EXTREMITIES: 2+ pulses, warm, well-perfused, no edema. SKIN: Warm, dry, normal turgor, no rashes or lesions noted. LABS Laboratory Results - last 24 hr 03/26/20 03/28/20 03/28/20 06:13 07:33 07:33 WBC 4.2 RBC 4.19 Hgb 13.5 Hct 38.5 MCV 91.7 MCH 32.2 MCHC 35.1 RDW 13.7 Plt Count 300 MPV 7.9 Sodium 139 Potassium 3.7 Chloride 106 Carbon Dioxide 23 Anion Gap 10 BUN 16.5 Creatinine 0.8 Est GFR (CKD-EPI)AfAm 118.20 Est GFR (CKD-EPI)NonAf 101.99 Random Glucose 110 H Calcium 8.7 Phosphorus 3.4 Magnesium 2.4 Total Bilirubin 0.5 AST 20 ALT 44 Alkaline Phosphatase 60 Total Protein 7.5 Albumin 3.2 L Hep A IgM Ab Confirm Negative Hepatitis A Ab Total Positive H Hep Bs Antigen Negative Hep Bs Antibody Reactive Hep B Core Total Ab Negative Hep B Core IgM Ab Negative Hepatitis Be Antibody Negative Hepatitis Be Antigen Negative HOSPITAL COURSE: Date of Admission:03/26/20 Mr. Newman is a 54M w a h/o alcohol abuse and hypertension. He was recently admitted to the ED in October for delirium tremens where he was then transferred to the ICU and intubated. The patient reports symptoms of shortness of breath on arrival along with a CIWA score of 14. The patient reports not having his usual 12 beers a day. The patient was moved to the ICU and was on a librium and Ativan protocol. The patient was stabilized and moved to med/surg floor where he continued to receive his librium and ativan protocol, received thiamine, folate, and multivitamins and be monitored 24 hours without receiving ativan. Labs were trending down and the patient was spoken about receiving rehab at [facility]. The patient denied wanting admission to [facility] and will try to stay abstinent at home. The patient was discharged after being monitored for symptoms and will follow up with his pcp outpatient. Date of Discharge: 03/28/20 Minutes to complete discharge: 40 Discharge Summary Problems reviewed: Yes Reason For Visit: ALCOHOL WITHDRAWAL SYNDROME,CHEST PAIN Condition: Stable - Instructions Diet, Activity, Other Instructions: YOUR VISIT: You were admitted to the hospital for a shortness of breath and chest pain. While you were here, you were evaluated with lab work, blood work, imaging including an abdominal ultrasound and a chest x-ray. We found that your symptoms were caused by your alcohol withdrawal. You were evaluated by the product delivery specialist during your hospital course. You were treated with vitamins, fluids, and withdrawal medication. On your lab work we found that you had antibodies againstHepatitis A,B, and C. You will need to follow up with your primary care physician to check on your recovery process. MEDICATION: Please START taking: --Folic Acid 1mg, once a day --Thiamine[VITAMIN B1] 100mg, once a day --Multivitamins, once a day Please continue taking all other home medications as directed. Your medications have been sent to your [facility]. FOLLOW UP: Please follow up with Dr. Roldan (your PCP) to evaluate your liver enzymes and go over lab work. Please follow up with Brady Murdock to (Liver doctor) to evaluate your liver enzymes and hepatitis results. Additional information: You are being discharged home. Please return to the emergency department immediately if you begin experiencing any continued or worsening symptoms such as trouble breathing, shortness of breath, chest pain, fever, or recurrence of your symptoms. Referrals: Oscar Roldan MD [Staff Physician] - 1 Week Mic Abreu MD [Staff Physician] - 1 Week Disposition: HOME - Home Medications Comprehensive Discharge Medication List: Ambulatory Orders Aspirin [Lo-Dose Aspirin EC] 81 mg PO DAILY 04/22/19 Amlodipine Besylate [Norvasc -] 10 mg PO DAILY 10/29/19 Hydrochlorothiazide 12.5 mg PO DAILY 10/29/19 Lisinopril [Prinivil -] 40 mg PO DAILY 10/29/19 Albuterol Sulfate Inhaler - [Ventolin HFA Inhaler -] 2 puff IH QID PRN 10/30/19 Cyclobenzaprine HCl 10 mg PO DAILY PRN 10/30/19 Folic Acid 1 mg PO DAILY 30 Days #30 tablet 03/28/20 Multivitamin 1 each PO DAILY #30 tablet 03/28/20 Thiamine HCl [Vitamin B1 -] 100 mg PO DAILY 30 Days #30 tablet 03/28/20 This patient is new to me today: No Emergency Visit: Yes ED Registration Date: 03/26/20 Care time: The patient presented to the Emergency Department on the above date and was hospitalized for further evaluation of their emergent condition. Critical Care patient: No - Discharge Referral Referred to [facility] No ATTENDING PHYSICIAN STATEMENT I saw and evaluated the patient. I reviewed the resident's note and discussed the case with the resident. I agree with the resident's findings and plan as documented. SUBJECTIVE: OBJECTIVE: ASSESSMENT AND PLAN:
== END 2020-03-28 14:09 | disposition home or self-care (01) | DRG 897 ==
LOC: JER 23:37 → JERBED 03-26 02:19 → JICU 03-26 07:15 → J6S 03-27 00:07
PROVIDERS: ADMIT Internal Medicine; ATTEND Internal Medicine
PROC: HZ2ZZZZ Detoxification Services for Substance Abuse Treatment (ICD-10-PCS; principal; 2020-03-26)
DX: F10.239 Alcohol dependence with withdrawal, unspecified (principal); R07.9 Chest pain, unspecified; R00.0 Tachycardia, unspecified; I10 Essential (primary) hypertension; R74.0 Nonspecific elevation of levels of transaminase and lactic acid dehydrogenase [LDH]; E66.9 Obesity, unspecified; Z68.35 Body mass index [BMI] 35.0-35.9, adult
CPT/HCPCS: 36415; 71045-TC-FY; 76705-TC; 80053; 80074; 80307; 81003; 82140; 82550; 83690; 83735; 83880; 84100; 84484; 85025; 85027; 85610; 85730; 86704; 86705; 86706; 86707; 86708; 86709; 87340; 93005; 93010; 99291; J1644; U0003

== ENCOUNTER 2020-04-26 20:10 | Inpatient (IN) | payer OTHER ==
[2020-04-26 20:22] VITALS: BMI 34.8
--- NOTE | 2020-04-26 21:54 | PDOC ---
History of Present Illness - General Chief Complaint: Shortness of Breath Stated Complaint: SOB w/ ASTHMA EXAC Time Seen by Provider: 04/26/20 21:54 - History of Present Illness Initial Comments: 04/27/20 00:43 54 year old man with a history of alcohol abuse and preior withdrawal seizure who presents with alcohol withdrawal symptoms and midsternal chest pain fr the last 4-5 hours. He rpeorts his last drink was at 7pm earlier this night. He has reports the pain is nonradiating and associated with mild sob and mild nausea. ROS GENERAL/CONSTITUTIONAL: No fever or chills. No weakness. HEAD, EYES, EARS, NOSE AND THROAT: No change in vision. No ear pain or discharge. No sore throat. CARDIOVASCULAR: + chest pain or shortness of breath RESPIRATORY: No cough, wheezing, or hemoptysis. GASTROINTESTINAL: No nausea, vomiting, diarrhea or constipation. GENITOURINARY: No dysuria, frequency, or change in urination. MUSCULOSKELETAL: No joint or muscle swelling or pain. No neck or back pain. SKIN: No rash NEUROLOGIC: No headache, vertigo, loss of consciousness, or change in strength/sensation. ENDOCRINE: No increased thirst. No abnormal weight change HEMATOLOGIC/LYMPHATIC: No anemia, easy bleeding, or history of blood clots. ALLERGIC/IMMUNOLOGIC: No hives or skin allergy. PE GENERAL: Awake, alert, and fully oriented, in no acute distress, tongue tremor, hand tremor HEAD: No signs of trauma, normocephalic, atraumatic EYES: EOMI, sclera anicteric, conjunctiva clear ENT: oropharynx clear without exudates. Moist mucosa NECK: Normal ROM, supple LUNGS: No distress, speaks full sentences, clear to auscultation bilaterally HEART: Regular rate and rhythm, normal S1 and S2, no murmurs, rubs or gallops, peripheral pulses normal and equal bilaterally. ABDOMEN: Soft, nontender. No guarding, no rebound. No masses EXTREMITIES : Normal inspection, Normal range of motion, no edema. No clubbing or cyanosis. NEUROLOGICAL: Cranial nerves II through XII grossly intact. Normal speech, normal gait, no focal sensorimotor deficits SKIN: Warm, Dry, normal turgor, no rashes or lesions noted Assessment and Plan 54 year old man with a history of alcohol abuse and preior withdrawal seizure who presents with alcohol withdrawal symptoms and midsternal chest pain fr the last 4-5 hours. Consider acs vs withdrawal vs gerd vs msk CIWA 7 librium dosed labs wnl ekg wnl Will admit for further observation and cardiac monitoring Salome Brunner, PGY3 Emergency Medicine Past History - Medical History Allergies/Adverse Reactions: Allergies Allergy/AdvReac Type Severity Reaction Status Date / Time shellfish derived Allergy Severe Verified 04/26/20 20:17 Home Medications: Ambulatory Orders Aspirin [Lo-Dose Aspirin EC] 81 mg PO DAILY 04/22/19 Amlodipine Besylate [Norvasc -] 10 mg PO DAILY 10/29/19 Hydrochlorothiazide 12.5 mg PO DAILY 10/29/19 Lisinopril [Prinivil -] 40 mg PO DAILY 10/29/19 Albuterol Sulfate Inhaler - [Ventolin HFA Inhaler -] 2 puff IH QID PRN 10/30/19 Folic Acid 1 mg PO DAILY 30 Days #30 tablet 03/28/20 Multivitamin 1 each PO DAILY #30 tablet 03/28/20 Thiamine HCl [Vitamin B1 -] 100 mg PO DAILY 30 Days #30 tablet 03/28/20 Asthma: Yes Cancer: No Cardiac Disorders: No CVA: No COPD: No CHF: No Dementia: No Diabetes: No GI Disorders: No Disorders: No HTN: Yes Hypercholesterolemia: No Liver Disease: No Seizures: Yes Thyroid Disease: No - Surgical History Abdominal Surgery: No Appendectomy: No Cardiac Surgery: No Cholecystectomy: No Lung Surgery: No Neurologic Surgery: No Orthopedic Surgery: No - Immunization History Immunization Up to Date: No - Psycho-Social/Smoking History Smoking History: Never smoked Have you smoked in the past 12 months: No - Substance Abuse Hx (Audit-C & DAST Scrn) How often the patient has a drink containing alcohol: 4 0r more times/wk Score: In Men: 4 or > Positive; In Women: 3 or > Positive: 4 Screen Result (Pos requires Nsg. Audit-10AR): Positive *Physical Exam - Vital Signs Last Vital Signs Temp Pulse Resp BP Pulse Ox 98.7 F 114 H 20 157/110 H 94 L 04/26/20 20:13 04/26/20 20:13 04/26/20 20:13 04/26/20 20:13 04/26/20 20:13 ED Treatment Course - LABORATORY CBC & Chemistry Diagram: 04/27/20 05:34 04/27/20 05:34 Discharge - Discharge Information Problems reviewed: Yes Clinical Impression/Diagnosis: Chest pain - Follow up/Referral - Patient Discharge Instructions - Post Discharge Activity
--- NOTE | 2020-04-26 21:58 | PDOC ---
Attending Attestation - Resident Resident Name: Salome Brunner - ED Attending Attestation I have performed the following: I have examined & evaluated the patient, The case was reviewed & discussed with the resident, I agree w/resident's findings & plan - HPI HPI: 04/27/20 00:02 Pt comes with CP and alcohol withdrawal - Physicial Exam PE: 04/27/20 19:42 Agree with resident exam - Medical Decision Making 04/27/20 00:02 HR is 86 on EKG; NSR 04/27/20 00:49 All labs are normal 04/27/20 19:42 However pt will be admitted given his risk factors, and given that he needs seri al cardiac enzyme monitoring. Discharge - Discharge Information Problems reviewed: Yes Clinical Impression/Diagnosis: Chest pain Qualifiers: Chest pain type: precordial pain Qualified Code(s): R07.2 - Precordial pain - Follow up/Referral - Patient Discharge Instructions - Post Discharge Activity
[2020-04-26] MEDS ORDERED: chlordiazePOXIDE HCL 25 MG CAPSULE PO ONE (22:28)
[2020-04-26] MEDS ORDERED: chlordiazePOXIDE HCL 25 MG CAPSULE ONE (22:29)
[2020-04-26 22:41] LABS: BASO % 0.9 % (0-2.0); EOS % 0.4 % (0-4.5); HEMATOCRIT 45.6 % (35.4-49); HEMOGLOBIN 16.2 GM/dL (11.7-16.9); LYMPH % 63.8 % (8-40); MCH 32.2 pg (25.7-33.7); MCHC 35.6 g/dl (32.0-35.9); MEAN CELL VOLUME 90.5 fl (80-96); MEAN PLT VOLUME 7.5 fl (7.5-11.1); MONO % 4.7 % (3.8-10.2); NEUT % 30.2 % (42.8-82.8); PLATELET COUNT 428 K/MM3 (134-434); RBC 5.04 M/mm3 (4.00-5.60); RDW 12.9 % (11.9-15.9); WHITE BLOOD COUNT 5.2 K/mm3 (4.0-10.0)
[2020-04-26 22:54] LABS: INR 1.1 (0.83-1.09)
[2020-04-26 22:57] LABS: ACTIVATED PTT 31.4 SECONDS (25.2-36.5)
[2020-04-26 23:35] LABS: ALBUMIN 4.2 g/dl (3.4-5.0); ALK PHOS 81 U/L (45-117); ANION GAP 10 MMOL/L (8-16); BILIRUBIN,TOTAL 0.6 mg/dL (0.2-1); BLOOD UREA NITROGEN 16.2 mg/dL (7-18); CALCIUM 9.5 mg/dL (8.5-10.1); CHLORIDE 102 mmol/L (98-107); CO2 25 mmol/L (21-32); GLUCOSE,RANDOM 101 mg/dL (74-106); POTASSIUM 3.9 mmol/L (3.5-5.1); SGOT/AST 39 U/L (15-37); SGPT/ALT 62 U/L (13-61); SODIUM 137 mmol/L (136-145); TOT PROT 9.4 g/dl (6.4-8.2)
[2020-04-26 23:45] LABS: PLATELET ESTIMATE ADEQUATE
--- NOTE | 2020-04-27 01:14 | PN ---
Teaching Attending Note Name of Resident: Zeus Spivey ATTENDING PHYSICIAN STATEMENT I saw and evaluated the patient. I reviewed the resident's note and discussed the case with the resident. I agree with the resident's findings and plan as documented. SUBJECTIVE: Patient is a 54 year old man with a PMH of Alcohol abuse, HTN, Prediabetes, H epatitis C disease CV (treated/now undetectable), ?Alcohol wihdrawal seizures and Asthma presenting to the ER with chest pain and features of alcohol withdrawal. In 10/2019 patient was intubated in the ER for severe alcohol withdrawal/impending delirium tremens in the ER and placed on Midazolam and Propofol drips. Patient denies abdominal pain, headache, palpitations, dizziness, fever, chills, nausea, vomiting, diarrhea, constipation, dysuria, frequency, urgency, melena, hematochezia or hematuria. Denies tobacco or illicit drug use. No sick contacts or recent travels. Family history - his grand uncle had a heart attack. OBJECTIVE: Vital Signs Period Temp Pulse Resp BP Sys/Hoyt Pulse Ox Last 24 Hr 98.7 F 114 20 157/110 94 HEENT: No Jaundice, eye redness or discharge, PERRLA, EOMI. Tongue fasciculations; Normocephalic, atraumatic. External ears are normal and hearing is grossly intact. No nasal discharge. Neck: Supple, nontender. No palpable adenopathy or thyromegaly. No JVD Chest: Good effort. Clear to auscultation and percussion. Heart: Regular. No S3, rub or murmur Abdomen: Not distended, soft, nontender and no HSM. No rebound or guarding. Normal bowel sounds. Ext: Peripheral pulses intact. No leg edema. Skin: Warm and dry. No petechiae, rash or ecchymosis. Neuro: Alert. Oriented x3. Hand tremors. CN 2-12 grossly intact. Sensation grossly intact in all four extremities and DTR are symmetric. Psych: Appropriate mood and affect. Good insight. Home Medications Medication Instructions Recorded Aspirin [Lo-Dose Aspirin EC] 81 mg PO DAILY 04/22/19 Amlodipine Besylate [Norvasc -] 10 mg PO DAILY 10/29/19 Hydrochlorothiazide 12.5 mg PO DAILY 10/29/19 Lisinopril [Prinivil -] 40 mg PO DAILY 10/29/19 Albuterol Sulfate Inhaler - 2 puff IH QID PRN 10/30/19 [Ventolin HFA Inhaler -] Folic Acid 1 mg PO DAILY 30 Days #30 tablet 03/28/20 Multivitamin 1 each PO DAILY #30 tablet 03/28/20 Thiamine HCl [Vitamin B1 -] 100 mg PO DAILY 30 Days #30 tablet 03/28/20 Abnormal Lab Results 04/26/20 04/26/20 04/26/20 22:10 22:10 22:10 Neutrophils % 30.2 L D Neutrophils % (Manual) 33.0 L Lymphocytes % 63.8 H D Lymphocytes % (Manual) 60.0 H INR 1.10 H Lactic Acid AST 39 H ALT 62 H Total Protein 9.4 H 04/27/20 00:07 Neutrophils % Neutrophils % (Manual) Lymphocytes % Lymphocytes % (Manual) INR Lactic Acid 3.1 H* AST ALT Total Protein Current Medications Generic Name Dose Route Start Last Admin Trade Name Freq PRN Reason Stop Dose Admin Albuterol Sulfate 2 puff 04/27/20 03:26 Ventolin Hfa Inhaler - IH QID PRN SHORT OF BREATH/WHEEZING Amlodipine Besylate 10 mg 04/27/20 10:00 Norvasc - PO DAILY [facility] Aspirin 81 mg 04/27/20 10:00 Ecotrin - PO DAILY [facility] Enoxaparin Sodium 40 mg 04/27/20 10:00 Lovenox - SQ DAILY MIA[facility] Folic Acid 1 mg 04/27/20 10:00 Folic Acid - PO DAILY [facility] Hydrochlorothiazide 12.5 mg 04/27/20 10:00 Hctz - PO DAILY [facility] Sodium Chloride 1,000 mls @ 75 mls/hr 04/27/20 10:00 Normal Saline - IV ASDIR MIAH Lisinopril 40 mg 04/27/20 10:00 Prinivil PO DAILY [facility] Lorazepam 1 mg 04/28/20 05:00 Ativan - PO 04/28/20 23:01 0500,1100,1700,2300 MIA[facility] Lorazepam 1 mg 04/27/20 03:13 Ativan - PO 04/29/20 00:00 Q4H PRN Symptoms of Withdrawal Lorazepam 2 mg 04/27/20 05:00 Ativan - PO 04/27/20 23:01 0500,1100,1700,2300 MIA[facility] Lorazepam 0.5 mg 04/29/20 05:00 Ativan - PO 04/29/20 23:01 Q6H MIA[facility] Lorazepam 0.5 mg 04/29/20 00:00 Ativan - PO 04/30/20 00:00 Q4H PRN Symptoms of Withdrawal Lorazepam 0.5 mg 04/30/20 05:00 Ativan - PO 04/30/20 05:01 ONCE ONE Multivitamins/Minerals/Vitamin C 1 tab 04/27/20 10:00 Tab-A-Vit - PO DAILY [facility] Thiamine HCl 100 mg 04/27/20 10:00 Vitamin B1 - PO DAILY [facility] ASSESSMENT AND PLAN: 1. Chest pain/Alcohol withdrawal syndrome - No acute abnormality on CXR. Has risk factors for ACS. EKG shows NSR at 86/minute and QTc [address]-T wave changes. Initial troponin is negative. Will avoid drugs that may prolong QTc. Will admit to telemetry, trend troponin, repeat EKG, get ECHO, urine toxicology and consult Cardiology. Viral testing for COVID-19 ordered and patient placed on airborne, droplet and contact isolation. Will implement CIWA Ativan alcohol withdrawal protocol and do neurochecks. Implement seizure, fall and aspiration precautions. Treat with IV Banana bag, thiamine and folic acid. Monitor and replete electrolytes (Ca,Mg,K,P). Counseled patient about abstaining from alcohol. Will consult online merchandising specialist and refer to alcohol detox upon discharge. Lactic acidosis as well as elevated transaminases (which are chronic) are likely related to alcoholism - will trend and avoid hepatotoxic drugs. Will continue comprehensive care for all of patients comorbid conditions including Albuterol PRN for Asthma. 2. Hypertension Will restart suitable outpatient antihypertensive drugs when clinically appropriate. Subsequently, will revise regimen to ensure [id number] excellent BP control. Patient counseled on the injurious effects of uncontrolled hypertension. Nonpharmacologic measures to control hypertension like weight loss, salt restriction and exercise stressed. Importance of adherence to treatment regimen and attainment of normotension emphasized. 3. Obesity Counseled on the risks associated with obesity. Will provide patient all the necessary assistance, counseling and positive reinforcement to facilitate weight loss. Consult electronic equipment maint tech. 4. DVT prophylaxis - Lovenox 40 mg SQ q 24 hours. 5. Advance directives - Full code
[2020-04-27] MEDS ORDERED: chlordiazePOXIDE HCL 25 MG CAPSULE PO ONE (02:24)
[2020-04-27] MEDS ORDERED: LORazepam 0.5 MG TABLET ONE ×2 (02:33→05:11)
[2020-04-27] MEDS ORDERED: LORazepam 0.5 MG TABLET PO PRN (03:13)
[2020-04-27] MEDS ORDERED: THIAMINE HCL 200 MG/2 ML VIAL IVPB ONE (03:23)
[2020-04-27] MEDS ORDERED: ALBUTEROL SO4 HFA INHALER IH PRN (03:26)
--- NOTE | 2020-04-27 03:32 | HP ---
CHIEF COMPLAINT: PCP: HISTORY OF PRESENT ILLNESS: 54M w/ pmh of pre-DM, HTN, Hep A Ab positive, , Hep C Ab positive sp tx([facility] 2017, 2mo), EtOH use disorder(12-pack of 8oz cans of beer daily) presented with complaint of nonradiating midsternal chest pressure with SOB. Chest pressure has improved, but still present. Usually walks for 30mins. Lives on 3rd floor, walks up stairs w/o SOB. Performed 150 jumping jacks 4d prior. Mascteilli, echo stress 05/31/19 was negative. Last drink was 7pm. Has vomitted 3x, no blood or bile seen. Thinks he might have had a seizure in the past. Starting drninking at 20yo. Has tremors when doesnt drink. Drinks first thing in the morning. Has been drinking 6d straight. Has nausea, no vomiting. Was told by Dr Roldan, that he doesnt need to see a GI. On disability, former armed security. Snores, never had sleep study. ER course was notable for: -98.7F, 114, 157/110, 20, 94% -tremors of tongue, hands; ~CIWA 6 -LA 3.1 -transaminitis 39/62 -troponin 0.02 -total protein 9.4 --dehydration? -EKG: NRS, QTc 476 -librium Recent Travel: denies PAST MEDICAL HISTORY: as above PAST SURGICAL HISTORY: none, only knee injections Social History: Smoking: denies Alcohol: 12beers, daily Drugs: denies Allergies shellfish derived Allergy (Severe, Verified 04/26/20 20:17) HOME MEDICATIONS: Home Medications Medication Instructions Recorded Aspirin [Lo-Dose Aspirin EC] 81 mg PO DAILY 04/22/19 Amlodipine Besylate [Norvasc -] 10 mg PO DAILY 10/29/19 Hydrochlorothiazide 12.5 mg PO DAILY 10/29/19 Lisinopril [Prinivil -] 40 mg PO DAILY 10/29/19 Albuterol Sulfate Inhaler - 2 puff IH QID PRN 10/30/19 [Ventolin HFA Inhaler -] Folic Acid 1 mg PO DAILY 30 Days #30 tablet 03/28/20 Multivitamin 1 each PO DAILY #30 tablet 03/28/20 Thiamine HCl [Vitamin B1 -] 100 mg PO DAILY 30 Days #30 tablet 03/28/20 REVIEW OF SYSTEMS CONSTITUTIONAL: Absent: fever, chills, diaphoresis, generalized weakness, malaise, loss of appetite, weight change HEENT: Absent: rhinorrhea, nasal congestion, throat pain, throat swelling, difficulty swallowing, mouth swelling, ear pain, eye pain, visual changes CARDIOVASCULAR: chest pressure, SOB Absent: syncope, palpitations, irregular heart rate, lightheadedness, peripheral edema RESPIRATORY: Absent: cough, dyspnea with exertion, orthopnea, wheezing, stridor, hemoptysis GASTROINTESTINAL: Absent: abdominal pain, abdominal distension, nausea, vomiting, diarrhea, constipation, melena, hematochezia GENITOURINARY: Absent: dysuria, frequency, urgency, hesitancy, hematuria, flank pain, genital pain MUSCULOSKELETAL: Absent: myalgia, arthralgia, joint swelling, back pain, neck pain SKIN: Absent: rash, itching, pallor HEMATOLOGIC/IMMUNOLOGIC: Absent: easy bleeding, easy bruising, lymphadenopathy, frequent infections ENDOCRINE: Absent: unexplained weight gain, unexplained weight loss, heat intolerance, cold intolerance NEUROLOGIC: tremors Absent: headache, focal weakness or paresthesias, dizziness, unsteady gait, seizure, mental status changes, bladder or bowel incontinence PSYCHIATRIC: Absent: anxiety, depression, suicidal or homicidal ideation, hallucinations. PHYSICAL EXAMINATION Vital Signs - 24 hr 04/26/20 04/27/20 04/27/20 20:13 02:32 02:58 Temperature 98.7 F 97.9 F Pulse Rate 114 H Pulse Rate [ 98 H Apical] Respiratory 20 20 Rate Blood Pressure 157/110 H Blood Pressure 159/98 [Left] O2 Sat by Pulse 94 L 98 98 Oximetry (%) GENERAL: Awake, alert, and fully oriented, in no acute distress. HEAD: Normal with no signs of trauma. Mild diaphoresis EYES: Pupils equal, round and reactive to light, extraocular movements intact, sclera anicteric, conjunctiva injected. EARS, NOSE, THROAT: Ears normal, nares patent, oropharynx clear without exudates. Moist mucous membranes. NECK: Normal range of motion, supple without lymphadenopathy, JVD, or masses. LUNGS: Breath sounds equal, clear to auscultation bilaterally. No wheezes, and no crackles. No accessory muscle use. HEART: Regular rate and rhythm, normal S1 and S2 without murmur, rub or gallop. ABDOMEN: Soft, nontender, not distended, no guarding, no rebound, no masses. MUSCULOSKELETAL: Normal range of motion at all joints. No bony deformities or tenderness. No CVA tenderness. UPPER EXTREMITIES: 2+ pulses, warm, well-perfused. No cyanosis. No clubbing. No peripheral edema. LOWER EXTREMITIES: 2+ pulses, warm, well-perfused. No calf tenderness. No peripheral edema. NEUROLOGICAL: Cranial nerves II-XII intact. Normal speech. CIWA 16(sweating, tongue fasculilations, hand tremors, bothered by light, anxio us) SKIN: Warm, moist, normal turgor, no rashes or lesions noted, normal capillary refill. Laboratory Results - last 24 hr 04/26/20 04/26/20 04/26/20 22:10 22:10 22:10 WBC 5.2 RBC 5.04 Hgb 16.2 Hct 45.6 D MCV 90.5 MCH 32.2 MCHC 35.6 RDW 12.9 Plt Count 428 D MPV 7.5 Absolute Neuts (auto) 1.6 Neutrophils % 30.2 L D Neutrophils % (Manual) 33.0 L Lymphocytes % 63.8 H D Lymphocytes % (Manual) 60.0 H Monocytes % 4.7 Monocytes % (Manual) 7 Eosinophils % 0.4 Basophils % 0.9 Nucleated RBC % 0 Platelet Estimate Adequate Platelet Comment No clumping noted PT with INR 13.00 INR 1.10 H PTT (Actin FS) 31.4 Sodium 137 Potassium 3.9 Chloride 102 Carbon Dioxide 25 Anion Gap 10 BUN 16.2 Creatinine 1.0 Est GFR (CKD-EPI)AfAm 99.15 Est GFR (CKD-EPI)NonAf 85.55 Random Glucose 101 Lactic Acid Calcium 9.5 Total Bilirubin 0.6 AST 39 H ALT 62 H Alkaline Phosphatase 81 Troponin I < 0.02 Total Protein 9.4 H Albumin 4.2 04/27/20 04/27/20 00:07 00:29 WBC RBC Hgb Hct MCV MCH MCHC RDW Plt Count MPV Absolute Neuts (auto) Neutrophils % Neutrophils % (Manual) Lymphocytes % Lymphocytes % (Manual) Monocytes % Monocytes % (Manual) Eosinophils % Basophils % Nucleated RBC % Platelet Estimate Platelet Comment PT with INR INR PTT (Actin FS) Sodium Potassium Chloride Carbon Dioxide Anion Gap BUN Creatinine Est GFR (CKD-EPI)AfAm Est GFR (CKD-EPI)NonAf Random Glucose Lactic Acid 3.1 H* Calcium Total Bilirubin AST ALT Alkaline Phosphatase Troponin I < 0.02 Total Protein Albumin ASSESSMENT/PLAN: 54M w/ pmh of pre-DM, HTN, Hep A Ab positive, , Hep C Ab positive sp tx([facility] 2016, 2mo), EtOH use disorder(12-pack of 8oz cans of beer daily) presented with complaint of nonradiating midsternal chest pressure with SOB. Chest pressure has improved, but still present. Usually walks for 30mins. Lives on 3rd floor, walks up stairs w/o SOB. Mascteilli, echo stress 05/31/19 was negative. Admitted for ACS r/o and EtOH withdrawal. #ACS r/o --CP is unlikely from ACS > troponin neg x2 > EKG w/o ST abnormalities > Echo pending - tele admission - Cardio consult(Kriss) #EtOH withdrawal > CIWA 16 - Ativan Protocol - Pt expressing desire to avoid [facility]. #elevated LA --likely 2/2 dehydration from vomiting > LA 3.1 #elevated LFTs --likely 2/2 obsity and EtOH usage > AST/ALT 39/62 - trend LFTs #prediabetic > HbA1c --pending FEN - diabetic diet - NS @75 DVT PPX - lovenox Family Medical History Family History: As Documented Family Hx Cardiac Disorders: Grandfather (paternal) (granduncle of [place]) Visit type - Emergency Visit Emergency Visit: Yes ED Registration Date: 04/27/20 Care time: The patient presented to the Emergency Department on the above date and was hospitalized for further evaluation of their emergent condition. - New Patient This patient is new to me today: Yes Date on this admission: 04/27/20 - Critical Care Critical Care patient: No ATTENDING PHYSICIAN STATEMENT I saw and evaluated the patient. I reviewed the resident's note and discussed the case with the resident. I agree with the resident's findings and plan as documented. SUBJECTIVE: OBJECTIVE: ASSESSMENT AND PLAN:
[2020-04-27] MEDS ORDERED: THIAMINE HCL 200 MG/2 ML VIAL ONE (04:47)
[2020-04-27] MEDS: LORazepam 0.5 MG TABLET PO SCH ×4 (05:28→23:21)
[2020-04-27 05:52] LABS: HEMATOCRIT 41.4 % (35.4-49); HEMOGLOBIN 14.6 GM/dL (11.7-16.9); MCH 31.7 pg (25.7-33.7); MCHC 35.2 g/dl (32.0-35.9); MEAN CELL VOLUME 90.1 fl (80-96); MEAN PLT VOLUME 6.9 fl (7.5-11.1); PLATELET COUNT 354 K/MM3 (134-434); RBC 4.59 M/mm3 (4.00-5.60); RDW 12.9 % (11.9-15.9); WHITE BLOOD COUNT 4.2 K/mm3 (4.0-10.0)
[2020-04-27 06:14] LABS: CALCIUM 8.7 mg/dL (8.5-10.1); CREATININE 0.9 mg/dL (0.55-1.3); MAGNESIUM 2.4 mg/dL (1.8-2.4); POTASSIUM 3.7 mmol/L (3.5-5.1)
[2020-04-27] MEDS ORDERED: amLODIPine BESYLATE 10 MG TABLET (FP) PO SCH (10:00)
[2020-04-27] MEDS: THIAMINE HCL 100 MG TABLET (FP) PO SCH (10:42)
[2020-04-27] MEDS: HYDROCHLOROTHIAZIDE 12.5 MG CAPSULE (FP) PO SCH (10:42)
[2020-04-27] MEDS: ASPIRIN COATED 81 MG TABLET.EC PO SCH (10:42)
[2020-04-27] MEDS: LISINOPRIL 20 MG TABLET (FP) PO SCH (10:42)
[2020-04-27] MEDS: FOLIC ACID 1 MG TABLET (FP) PO SCH (10:42)
[2020-04-27] MEDS: MULTIVITAMINS (DAILY MVI) TABLET (FP) PO SCH (10:42)
[2020-04-27] MEDS: SODIUM CHLORIDE 1,000 ML IV SCH (10:48)
[2020-04-27] MEDS: ENOXAPARIN NA (PORCINE) 40 MG/0.4 ML DISP.SYRIN SQ SCH (10:48)
--- NOTE | 2020-04-27 11:42 | CON.CARD ---
Consult Consult Specialty:: Cardiology for Dr. Monterroso Referred by:: Hospitalist Medicine Reason for Consultation:: Alcohol withdrawal, chest pain - History of Present Illness Chief Complaint: Alcohol withdrawal, chest pain History of Present Illness: Patient is a 54 year old man with a PMH of Alcohol abuse, HTN, Prediabetes, Hepatitis C disease CV (treated/now undetectable), ?Alcohol withdrawal seizures and Asthma presenting to the ER with chest pain and features of alcohol withdrawal. In 10/2019 patient was intubated in the ER for severe alcohol withdrawal/impending delirium tremens in the ER and placed on Midazolam and Propofol drips. Patient denies abdominal pain, headache, palpitations, dizziness, fever, chills, nausea, vomiting, diarrhea, constipation, dysuria, frequency, urgency, melena, hematochezia or hematuria. Denies tobacco or illicit drug use. No sick contacts or recent travels. Family history - his grand uncle had a heart attack. Started on Nadolol and librium with resolution of chest pain, tremors, denies palpitations, dyspnea. - History Source History Provided By: Patient Limitations to Obtaining History: No Limitations - Past Medical History Cardio/Vascular: Yes: HTN Pulmonary: Yes: Asthma, Sleep Apnea (r/o; snores; takes an afternoon nap; obese; sedentary) - Alcohol/Substance Use Hx Alcohol Use: Yes Number of Drinks Daily: 10 History of Substance Use: reports: None - Smoking History Smoking history: Never smoked Have you smoked in the past 12 months: No - Social History Usual Living Arrangement: With Spouse ADL: Independent Home Medications - Allergies Allergies/Adverse Reactions: Allergies Allergy/AdvReac Type Severity Reaction Status Date / Time shellfish derived Allergy Severe Verified 04/26/20 20:17 - Home Medications Home Medications: Ambulatory Orders Aspirin [Lo-Dose Aspirin EC] 81 mg PO DAILY 04/22/19 Amlodipine Besylate [Norvasc -] 10 mg PO DAILY 10/29/19 Hydrochlorothiazide 12.5 mg PO DAILY 10/29/19 Lisinopril [Prinivil -] 40 mg PO DAILY 10/29/19 Albuterol Sulfate Inhaler - [Ventolin HFA Inhaler -] 2 puff IH QID PRN 10/30/19 Folic Acid 1 mg PO DAILY 30 Days #30 tablet 03/28/20 Multivitamin 1 each PO DAILY #30 tablet 03/28/20 Thiamine HCl [Vitamin B1 -] 100 mg PO DAILY 30 Days #30 tablet 03/28/20 Family Medical History Family Hx Cardiac Disorders: Grandfather (paternal) (granduncle of [place]) Review of Systems - Review of Systems Cardiovascular: reports: Chest Pain Vital Signs: Vital Signs Temperature 97.7 F 04/27/20 07:10 Pulse Rate 95 H 04/27/20 07:10 Respiratory Rate 18 04/27/20 07:10 Blood Pressure 160/97 04/27/20 07:10 O2 Sat by Pulse Oximetry (%) 95 04/27/20 07:10 Constitutional: Yes: No Distress, Calm Neck: Yes: Supple Respiratory: Yes: Regular, CTA Bilaterally Gastrointestinal: Yes: Soft, Abdomen, Obese, Hypoactive Bowel Sounds Cardiovascular: Yes: Tachycardia JVD: No Carotid Bruit: No Heart Sounds: Yes: S1, S2 Edema: No Neurological: Yes: Tremors - Other Data Labs, Other Data: CBC, BMP 04/27/20 05:34 04/27/20 05:34 INR, PTT INR 1.10 (0.83-1.09) H 04/26/20 22:10 Troponin, BNP 04/26/20 04/27/20 04/27/20 22:10 00:29 05:34 Troponin I < 0.02 < 0.02 < 0.02 Troponin, BNP 04/26/20 04/27/20 04/27/20 22:10 00:29 05:34 Troponin I < 0.02 < 0.[address] @ 107 Ejection Fraction %: LVEF > or = 40 % Imaging - Results Chest X-ray: Report Reviewed (NAD) Problem List - Problems (1) Chest pain Code(s): R07.9 - CHEST PAIN, UNSPECIFIED Qualifiers: Chest pain type: precordial pain Qualified Code(s): R07.2 - Precordial pain (2) HTN (hypertension) Code(s): I10 - ESSENTIAL (PRIMARY) HYPERTENSION Qualifiers: Hypertension type: essential hypertension Qualified Code(s): I10 - Essential (primary) hypertension (3) Obesity (BMI 30-39.9) Code(s): E66.9 - OBESITY, UNSPECIFIED (4) Alcohol withdrawal Code(s): F10.239 - ALCOHOL DEPENDENCE WITH WITHDRAWAL, UNSPECIFIED Qualifiers: Complication of substance-induced condition: uncomplicated Qualified Code(s): F10.230 - Alcohol dependence with withdrawal, uncomplicated Assessment/Plan 10/30/2019 Echo: Normal LV size with mild LVH and borderline hyperdynamics LVEF 65-70%, impaired relaxation, normal RV, no sig valve abnl Mascteilli, echo stress 05/31/19 was negative 1. Chest pain/Alcohol withdrawal syndrome (12-pack of 8oz cans of beer daily) 2. Hypertension 3. Abnormal LFTs 2/2 ETOH hepatitis and steatohepatitis 4. Hep C Ab positive sp tx([facility] 2017, 2mo) 5. Obesity, OSAS suspect 6. Hypertriglyceridemia P:1. Rule out for IN, trend LFTs 2. D/c echo had previous study, telemetry to evaluate for arrhythmia 3. Change Norvasc to Nadolol to help chest pain, tremors, possible portal hypertension from chronic liver disease, continue lisinopril 40 qd and d/c HCTZ 4. Banana bad and librium detox as you are 5. Outpatient sleep study to confirm OSAS 6. Thank you for consultative opportunity
--- NOTE | 2020-04-27 14:13 | PN ---
Physical Exam: SUBJECTIVE: Patient seen and examined OBJECTIVE: Vital Signs Period Temp Pulse Resp BP Sys/Hoyt Pulse Ox Last 24 Hr 97.4 F-98.7 F 88-114 18-22 151-160/97-110 94-98 GENERAL: The patient is awake, alert, and fully oriented, in no acute distress. HEAD: Normal with no signs of trauma. EYES: PERRL, extraocular movements intact, sclera anicteric, conjunctiva clear. No ptosis. ENT: Ears normal, nares patent, oropharynx clear without exudates, moist mucous membranes. NECK: Trachea midline, full range of motion, supple. LUNGS: Breath sounds equal, clear to auscultation bilaterally, no wheezes, no crackles, no accessory muscle use. HEART: Regular rate and rhythm, S1, S2 without murmur, rub or gallop. ABDOMEN: Soft, nontender, nondistended, normoactive bowel sounds, no guarding, no rebound, no hepatosplenomegaly, no masses. EXTREMITIES: 2+ pulses, warm, well-perfused, no edema. NEUROLOGICAL: Cranial nerves II through XII grossly intact. Normal speech, hand tremors observed. PSYCH: Normal mood, normal affect. SKIN: Warm, dry, normal turgor, no rashes or lesions noted Laboratory Results - last 24 hr 04/26/20 04/26/20 04/26/20 22:10 22:10 22:10 WBC 5.2 RBC 5.04 Hgb 16.2 Hct 45.6 D MCV 90.5 MCH 32.2 MCHC 35.6 RDW 12.9 Plt Count 428 D MPV 7.5 Absolute Neuts (auto) 1.6 Neutrophils % 30.2 L D Neutrophils % (Manual) 33.0 L Lymphocytes % 63.8 H D Lymphocytes % (Manual) 60.0 H Monocytes % 4.7 Monocytes % (Manual) 7 Eosinophils % 0.4 Basophils % 0.9 Nucleated RBC % 0 Platelet Estimate Adequate Platelet Comment No clumping noted PT with INR 13.00 INR 1.10 H PTT (Actin FS) 31.4 Sodium 137 Potassium 3.9 Chloride 102 Carbon Dioxide 25 Anion Gap 10 BUN 16.2 Creatinine 1.0 Est GFR (CKD-EPI)AfAm 99.15 Est GFR (CKD-EPI)NonAf 85.55 Random Glucose 101 Lactic Acid Calcium 9.5 Magnesium Total Bilirubin 0.6 AST 39 H ALT 62 H Alkaline Phosphatase 81 Troponin I < 0.02 Total Protein 9.4 H Albumin 4.2 Triglycerides Cholesterol Total LDL Cholesterol HDL Cholesterol 04/27/20 04/27/20 04/27/20 00:07 00:29 05:34 WBC 4.2 RBC 4.59 Hgb 14.6 Hct 41.4 MCV 90.1 MCH 31.7 MCHC 35.2 RDW 12.9 Plt Count 354 MPV 6.9 L Absolute Neuts (auto) Neutrophils % Neutrophils % (Manual) Lymphocytes % Lymphocytes % (Manual) Monocytes % Monocytes % (Manual) Eosinophils % Basophils % Nucleated RBC % Platelet Estimate Platelet Comment PT with INR INR PTT (Actin FS) Sodium Potassium Chloride Carbon Dioxide Anion Gap BUN Creatinine Est GFR (CKD-EPI)AfAm Est GFR (CKD-EPI)NonAf Random Glucose Lactic Acid 3.1 H* Calcium Magnesium Total Bilirubin AST ALT Alkaline Phosphatase Troponin I < 0.02 Total Protein Albumin Triglycerides Cholesterol Total LDL Cholesterol HDL Cholesterol 04/27/20 04/27/20 04/27/20 05:34 05:34 05:34 WBC RBC Hgb Hct MCV MCH MCHC RDW Plt Count MPV Absolute Neuts (auto) Neutrophils % Neutrophils % (Manual) Lymphocytes % Lymphocytes % (Manual) Monocytes % Monocytes % (Manual) Eosinophils % Basophils % Nucleated RBC % Platelet Estimate Platelet Comment PT with INR INR PTT (Actin FS) Sodium 137 Potassium 3.7 Chloride 102 Carbon Dioxide 23 Anion Gap 12 BUN 15.0 Creatinine 0.9 Est GFR (CKD-EPI)AfAm 112.62 Est GFR (CKD-EPI)NonAf 97.17 Random Glucose 110 H Lactic Acid 3.1 H* Calcium 8.7 Magnesium 2.4 Total Bilirubin AST ALT Alkaline Phosphatase Troponin I < 0.02 Total Protein Albumin Triglycerides 451 H Cholesterol 131 Total LDL Cholesterol 43 HDL Cholesterol 43 Active Medications Generic Name Dose Route Start Last Admin Trade Name Freq PRN Reason Stop Dose Admin Albuterol Sulfate 2 puff 04/27/20 03:26 Ventolin Hfa Inhaler - IH QID PRN SHORT OF BREATH/WHEEZING Aspirin 81 mg 04/27/20 10:00 04/27/20 10:42 Ecotrin - PO 81 mg DAILY MIAH Administration Enoxaparin Sodium 40 mg 04/27/20 10:00 04/27/20 10:48 Lovenox - SQ 40 mg DAILY MIAH Administration Folic Acid 1 mg 08/22/20 10:00 04/27/20 10:42 Folic Acid - PO 1 mg DAILY MIAH Administration Hydrochlorothiazide 12.5 mg 04/27/20 10:00 04/27/20 10:42 Hctz - PO 12.5 mg DAILY MIAH Administration Sodium Chloride 1,000 mls @ 75 mls/hr 04/27/20 10:00 04/27/20 10:48 Normal Saline - IV 75 mls/hr ASDIR MIAH Administration Lisinopril 40 mg 04/27/20 10:00 04/27/20 10:42 Prinivil PO 40 mg DAILY MIAH Administration Lorazepam 1 mg 04/28/20 05:00 Ativan - PO 04/28/20 23:01 0500,1100,1700,2300 MIAH Lorazepam 1 mg 04/27/20 03:13 Ativan - PO 04/29/20 00:00 Q4H PRN Symptoms of Withdrawal Lorazepam 2 mg 04/27/20 05:00 04/27/20 10:47 Ativan - PO 04/27/20 23:01 2 mg 0500,1100,1700,2300 MIAH Administration Lorazepam 0.5 mg 04/29/20 05:00 Ativan - PO 04/29/20 23:01 Q6H MIAH Lorazepam 0.5 mg 04/29/20 00:00 Ativan - PO 04/30/20 00:00 Q4H PRN Symptoms of Withdrawal Lorazepam 0.5 mg 04/30/20 05:00 Ativan - PO 04/30/20 05:01 ONCE ONE Multivitamins/Minerals/Vitamin C 1 tab 04/27/20 10:00 04/27/20 10:42 Tab-A-Vit - PO 1 tab DAILY MIAH Administration Nadolol 40 mg 04/28/20 10:00 Corgard - PO DAILY MIAH Thiamine HCl 100 mg 04/27/20 10:00 04/27/20 10:42 Vitamin B1 - PO 100 mg DAILY MIAH Administration ASSESSMENT/PLAN: 54M w/ pmh of pre-DM, HTN, Hep C Ab positive sp tx, EtOH use disorder(12-pack of 8oz cans of beer daily) presented with complaint of nonradiating midsternal chest pressure with SOB. Admitted for ACS r/o and EtOH withdrawal. #EtOH withdrawal CIWA 11 Ativan Protocol, MV, B12, folate and thiamine tolerating diet discussed abstinence, risks of behavior and complications trend electrolytes #ACS ruled out (CP resolved) troponin neg x2 EKG w/o ST abnormalities recent negative stress test tele admission Retail Specialist consult appreciated #Lactic acidosis (type B likely) IV hydration #HTN started on Nadolol c/w lisinopril, january d/c HCTZ based on BP elevated LFTs prediabetic HepC (s/p Rx) DVT prophylaxis Visit type - Emergency Visit Emergency Visit: Yes ED Registration Date: 04/27/20 Care time: The patient presented to the Emergency Department on the above date and was hospitalized for further evaluation of their emergent condition. - New Patient This patient is new to me today: Yes Date on this admission: 04/27/20 - Critical Care Critical Care patient: No - Discharge Referral Referred to [facility] Med P.C.: No
[2020-04-28] MEDS: LORazepam 1 MG TABLET PO SCH ×4 (05:23→23:04)
[2020-04-28 06:53] LABS: BASO % 1.1 % (0-2.0); EOS % 2.2 % (0-4.5); HEMOGLOBIN 14.8 GM/dL (11.7-16.9); LYMPH % 48.3 % (8-40); MCH 31.9 pg (25.7-33.7); MCHC 35.1 g/dl (32.0-35.9); MEAN CELL VOLUME 90.7 fl (80-96); MEAN PLT VOLUME 7.6 fl (7.5-11.1); MONO % 10.6 % (3.8-10.2); NEUT % 37.8 % (42.8-82.8); PLATELET COUNT 323 K/MM3 (134-434); RBC 4.63 M/mm3 (4.00-5.60); RDW 12.6 % (11.9-15.9); WHITE BLOOD COUNT 4.6 K/mm3 (4.0-10.0)
[2020-04-28 07:23] LABS: ALBUMIN 3.6 g/dl (3.4-5.0); BLOOD UREA NITROGEN 14.7 mg/dL (7-18); CALCIUM 8.8 mg/dL (8.5-10.1); MAGNESIUM 2.4 mg/dL (1.8-2.4); POTASSIUM 3.7 mmol/L (3.5-5.1)
[2020-04-28 07:40] LABS: TOT PROT 8.1 g/dl (6.4-8.2)
[2020-04-28] MEDS ORDERED: PT OWN MED DRAWER 7, Y5N ONE (09:32)
[2020-04-28] MEDS: FOLIC ACID 1 MG TABLET (FP) PO SCH (09:34)
[2020-04-28] MEDS: ASPIRIN COATED 81 MG TABLET.EC PO SCH (09:34)
[2020-04-28] MEDS: LISINOPRIL 20 MG TABLET (FP) PO SCH (09:34)
[2020-04-28] MEDS: MULTIVITAMINS (DAILY MVI) TABLET (FP) PO SCH (09:34)
[2020-04-28] MEDS: NADOLOL 40 MG TABLET (FP) PO SCH (09:34)
[2020-04-28] MEDS: HYDROCHLOROTHIAZIDE 12.5 MG CAPSULE (FP) PO SCH (09:34)
[2020-04-28] MEDS: ENOXAPARIN NA (PORCINE) 40 MG/0.4 ML DISP.SYRIN SQ SCH (09:35)
[2020-04-28] MEDS: THIAMINE HCL 100 MG TABLET (FP) PO SCH (09:35)
[2020-04-28] MEDS: SODIUM CHLORIDE 1,000 ML IV SCH (09:35)
--- NOTE | 2020-04-28 12:24 | PN ---
Progress Note, Physician History of Present Illness: Patient is a 54 year old man with a PMH of Alcohol abuse, HTN, Prediabetes, Hepatitis C disease CV (treated/now undetectable), ?Alcohol withdrawal seizures and Asthma presenting to the ER with chest pain and features of alcohol withdrawal. In 10/2019 patient was intubated in the ER for severe alcohol withdrawal/impending delirium tremens in the ER and placed on Midazolam and Propofol drips. Patient denies abdominal pain, headache, palpitations, dizziness, fever, chills, nausea, vomiting, diarrhea, constipation, dysuria, frequency, urgency, melena, hematochezia or hematuria. Denies tobacco or illicit drug use. No sick contacts or recent travels. Family history - his grand uncle had a heart attack. Started on Nadolol and Ativan taper with resolution of chest pain, tremors, denies palpitations, dyspnea. - Current Medication List Current Medications: Active Medications Albuterol Sulfate (Ventolin Hfa Inhaler -) 2 puff IH QID PRN PRN Reason: SHORT OF BREATH/WHEEZING Aspirin (Ecotrin -) 81 mg PO DAILY [facility] Last Admin: 04/28/20 09:34 Dose: 81 mg Documented by: Enoxaparin Sodium (Lovenox -) 40 mg SQ DAILY [facility] Last Admin: 04/28/20 09:35 Dose: 40 mg Documented by: Folic Acid (Folic Acid -) 1 mg PO DAILY [facility] Last Admin: 04/28/20 09:34 Dose: 1 mg Documented by: Hydrochlorothiazide (Hctz -) 12.5 mg PO DAILY [facility] Last Admin: 04/28/20 09:34 Dose: 12.5 mg Documented by: Sodium Chloride (Normal Saline -) 1,000 mls @ 75 mls/hr IV ASDIR [facility] Last Admin: 04/28/20 09:35 Dose: 75 mls/hr Documented by: Lisinopril (Prinivil) 40 mg PO DAILY [facility] Last Admin: 04/28/20 09:34 Dose: 40 mg Documented by: Lorazepam (Ativan -) 1 mg PO 0500,1100,1700,2300 [facility] Stop: 04/28/20 23:01 Last Admin: 04/28/20 12:00 Dose: 1 mg Documented by: Lorazepam (Ativan -) 1 mg PO Q4H PRN PRN Reason: Symptoms of Withdrawal Stop: 04/29/20 00:00 Lorazepam (Ativan -) 0.5 mg PO Q6H MIAH Stop: 04/29/20 23:01 Lorazepam (Ativan -) 0.5 mg PO Q4H PRN PRN Reason: Symptoms of Withdrawal Stop: 04/30/20 00:00 Lorazepam (Ativan -) 0.5 mg PO ONCE ONE Stop: 04/30/20 05:01 Multivitamins/Minerals/Vitamin C (Tab-A-Vit -) 1 tab PO DAILY [facility] Last Admin: 04/28/20 09:34 Dose: 1 tab Documented by: Nadolol (Corgard -) 40 mg PO DAILY [facility] Last Admin: 04/28/20 09:34 Dose: 40 mg Documented by: Thiamine HCl (Vitamin B1 -) 100 mg PO DAILY [facility] Last Admin: 04/28/20 09:35 Dose: 100 mg Documented by: - Objective Vital Signs: Vital Signs Temperature 97.4 F L 04/28/20 09:00 Pulse Rate 85 04/28/20 09:00 Respiratory Rate 22 H 04/28/20 09:00 Blood Pressure 138/87 04/28/20 09:00 O2 Sat by Pulse Oximetry (%) 96 04/28/20 09:00 Constitutional: Yes: No Distress, Calm Neck: Yes: Supple Cardiovascular: Yes: Regular Rate and Rhythm Respiratory: Yes: Regular, CTA Bilaterally Gastrointestinal: Yes: Normal Bowel Sounds, Soft Edema: No Labs: CBC, BMP 04/28/20 05:32 04/28/20 05:32 INR, PTT INR 1.10 (0.83-1.09) H 04/26/20 22:10 Problem List - Problems (1) Chest pain Code(s): R07.9 - CHEST PAIN, UNSPECIFIED Qualifiers: Chest pain type: precordial pain Qualified Code(s): R07.2 - Precordial pain (2) HTN (hypertension) Code(s): I10 - ESSENTIAL (PRIMARY) HYPERTENSION Qualifiers: Hypertension type: essential hypertension Qualified Code(s): I10 - Essential (primary) hypertension (3) Obesity (BMI 30-39.9) Code(s): E66.9 - OBESITY, UNSPECIFIED Assessment/Plan 10/30/2019 Echo: Normal LV size with mild LVH and borderline hyperdynamics LVEF 65-70%, impaired relaxation, normal RV, no sig valve abnl Mascteilli, echo stress 05/31/19 was negative 1. Chest pain/Alcohol withdrawal syndrome (12-pack of 8oz cans of beer daily) 2. Hypertension 3. Abnormal LFTs 2/2 ETOH hepatitis and steatohepatitis 4. Hep C Ab positive sp tx(2016, 2mo) 5. Obesity, OSAS suspect 6. Hypertriglyceridemia P:1. Ruld out for [place], LFTs downtrending 2. No arrhythmias on telemetry 3. Continue Nadolol 40 qd to help chest pain, tremors, possible portal hypertension from chronic liver disease, continue lisinopril 40 qd and d/c HCTZ 4. Vitamins and Ativan detox as you are 5. Outpatient sleep study to confirm OSAS
[2020-04-29] MEDS ORDERED: LORazepam 0.5 MG TABLET PO PRN
[2020-04-29] MEDS: LORazepam 0.5 MG TABLET PO SCH ×2 (05:45→10:51)
[2020-04-29] MEDS: SODIUM CHLORIDE 1,000 ML IV SCH ×2 (05:48→10:50)
--- NOTE | 2020-04-29 07:05 | PN ---
Progress Note, Physician History of Present Illness: Patient is a 54 year old man with a PMH of Alcohol abuse, HTN, Prediabetes, Hepatitis C disease CV (treated/now undetectable), ?Alcohol withdrawal seizures and Asthma presenting to the ER with chest pain and features of alcohol withdrawal. In 10/2019 patient was intubated in the ER for severe alcohol withdrawal/impending delirium tremens in the ER and placed on Midazolam and Propofol drips. Patient denies abdominal pain, headache, palpitations, dizziness, fever, chills, nausea, vomiting, diarrhea, constipation, dysuria, frequency, urgency, melena, hematochezia or hematuria. Denies tobacco or illicit drug use. No sick contacts or recent travels. Family history - his grand uncle had a heart attack. Started on Nadolol and librium with resolution of chest pain, tremors, denies palpitations, dyspnea. - Current Medication List Current Medications: Active Medications Albuterol Sulfate (Ventolin Hfa Inhaler -) 2 puff IH QID PRN PRN Reason: SHORT OF BREATH/WHEEZING Aspirin (Ecotrin -) 81 mg PO DAILY [facility] Last Admin: 04/28/20 09:34 Dose: 81 mg Documented by: Enoxaparin Sodium (Lovenox -) 40 mg SQ DAILY [facility] Last Admin: 04/28/20 09:35 Dose: 40 mg Documented by: Folic Acid (Folic Acid -) 1 mg PO DAILY [facility] Last Admin: 04/28/20 09:34 Dose: 1 mg Documented by: Hydrochlorothiazide (Hctz -) 12.5 mg PO DAILY [facility] Last Admin: 04/28/20 09:34 Dose: 12.5 mg Documented by: Sodium Chloride (Normal Saline -) 1,000 mls @ 75 mls/hr IV ASDIR [facility] Last Admin: 04/29/20 05:48 Dose: 75 mls/hr Documented by: Lisinopril (Prinivil) 40 mg PO DAILY [facility] Last Admin: 04/28/20 09:34 Dose: 40 mg Documented by: Lorazepam (Ativan -) 0.5 mg PO Q6H [facility] Stop: 04/29/20 23:01 Last Admin: 04/29/20 05:45 Dose: 0.5 mg Documented by: Lorazepam (Ativan -) 0.5 mg PO Q4H PRN PRN Reason: Symptoms of Withdrawal Stop: 04/30/20 00:00 Lorazepam (Ativan -) 0.5 mg PO ONCE ONE Stop: 04/30/20 05:01 Multivitamins/Minerals/Vitamin C (Tab-A-Vit -) 1 tab PO DAILY [facility] Last Admin: 04/28/20 09:34 Dose: 1 tab Documented by: Nadolol (Corgard -) 40 mg PO DAILY [facility] Last Admin: 04/28/20 09:34 Dose: 40 mg Documented by: Thiamine HCl (Vitamin B1 -) 100 mg PO DAILY [facility] Last Admin: 04/28/20 09:35 Dose: 100 mg Documented by: - Objective Vital Signs: Vital Signs Temperature 98.5 F 04/29/20 05:43 Pulse Rate 67 04/29/20 05:43 Respiratory Rate 18 04/29/20 05:43 Blood Pressure 120/80 04/29/20 05:43 O2 Sat by Pulse Oximetry (%) 98 04/29/20 05:43 Eyes: Yes: WNL, Conjunctiva Clear, EOM Intact HENT: Yes: WNL, Atraumatic, Normocephalic Neck: Yes: WNL, Supple, Trachea Midline Cardiovascular: Yes: WNL, Regular Rate and Rhythm Respiratory: Yes: WNL, Regular, CTA Bilaterally Gastrointestinal: Yes: WNL, Normal Bowel Sounds Genitourinary: Yes: WNL Musculoskeletal: Yes: WNL Extremities: Yes: WNL Edema: No Integumentary: Yes: WNL Neurological: Yes: WNL, Alert, Oriented ...Motor Strength: WNL Psychiatric: Yes: WNL Labs: CBC, BMP 04/28/20 05:32 04/28/20 05:32 INR, PTT INR 1.10 (0.83-1.09) H 04/26/20 22:10 Problem List - Problems (1) Chest pain Code(s): R07.9 - CHEST PAIN, UNSPECIFIED Qualifiers: Chest pain type: precordial pain Qualified Code(s): R07.2 - Precordial pain (2) Arthritis of both knees Code(s): M17.0 - BILATERAL PRIMARY OSTEOARTHRITIS OF KNEE (3) Back pain Code(s): M54.9 - DORSALGIA, UNSPECIFIED Qualifiers: Back pain location: low back pain Chronicity: chronic Back pain laterality: bilateral Sciatica presence: with sciatica Sciatica laterality: bilateral sciatica Qualified Code(s): M54.42 - Lumbago with sciatica, left side; M54.41 - Lumbago with sciatica, right side; G89.29 - Other chronic pain (4) [place] cardiac risk 10-20% in next 10 years Code(s): Z91.89 - [facility] PERSONAL RISK FACTORS, NOT ELSEWHERE CLASSIFIED (5) HTN (hypertension) Code(s): I10 - ESSENTIAL (PRIMARY) HYPERTENSION Qualifiers: Hypertension type: essential hypertension Qualified Code(s): I10 - Essential (primary) hypertension (6) Obesity (BMI 30-39.9) Code(s): E66.9 - OBESITY, UNSPECIFIED (7) Radiculopathy of lumbosacral region Code(s): M54.17 - RADICULOPATHY, LUMBOSACRAL REGION (8) Sedentary lifestyle Code(s): Z91.89 - [facility] PERSONAL RISK FACTORS, NOT ELSEWHERE CLASSIFIED (9) Spinal stenosis Code(s): M48.00 - SPINAL STENOSIS, SITE UNSPECIFIED (10) Alcohol withdrawal Code(s): F10.239 - ALCOHOL DEPENDENCE WITH WITHDRAWAL, UNSPECIFIED Qualifiers: Complication of substance-induced condition: uncomplicated Qualified Code(s): F10.230 - Alcohol dependence with withdrawal, uncomplicated (11) Alcohol withdrawal Code(s): F10.239 - ALCOHOL DEPENDENCE WITH WITHDRAWAL, UNSPECIFIED Qualifiers: Complication of substance-induced condition: uncomplicated Qualified Code(s): F10.230 - Alcohol dependence with withdrawal, uncomplicated (12) Chest pain Code(s): R07.9 - CHEST PAIN, UNSPECIFIED Qualifiers: Chest pain type: unspecified Qualified Code(s): R07.9 - Chest pain, unspecified (13) Congestive heart failure Code(s): I50.9 - HEART FAILURE, UNSPECIFIED Qualifiers: Heart failure type: unspecified Heart failure chronicity: acute Qualified Code(s): I50.9 - Heart failure, unspecified (14) SOB (shortness of breath) Code(s): R06.02 - SHORTNESS OF BREATH (15) Uncontrolled hypertension Code(s): I10 - ESSENTIAL (PRIMARY) HYPERTENSION Assessment/Plan 10/30/2019 Echo: Normal LV size with mild LVH and borderline hyperdynamics LVEF 65-70%, impaired relaxation, normal RV, no sig valve abnl Mascteilli, echo stress 05/31/19 was negative 1. Chest pain/Alcohol withdrawal syndrome (12-pack of 8oz cans of beer daily) 2. Hypertension 3. Abnormal LFTs 2/2 ETOH hepatitis and steatohepatitis 4. Hep C Ab positive sp tx(2016, 2mo) 5. Obesity, OSAS suspect 6. Hypertriglyceridemia P:1. Ruld out for [place], LFTs downtrending 2. No arrhythmias on telemetry 3. Continue Nadolol 40 qd to help chest pain, tremors, possible portal hypertension from chronic liver disease, continue lisinopril 40 qd and d/c HCTZ 4. Vitamins and Ativan detox as you are 5. Outpatient sleep study to confirm OSAS
[2020-04-29] MEDS: FOLIC ACID 1 MG TABLET (FP) PO SCH (09:43)
[2020-04-29] MEDS: MULTIVITAMINS (DAILY MVI) TABLET (FP) PO SCH (09:43)
[2020-04-29] MEDS: ASPIRIN COATED 81 MG TABLET.EC PO SCH (09:43)
[2020-04-29] MEDS: HYDROCHLOROTHIAZIDE 12.5 MG CAPSULE (FP) PO SCH (09:43)
[2020-04-29] MEDS: LISINOPRIL 20 MG TABLET (FP) PO SCH (09:43)
[2020-04-29] MEDS: ENOXAPARIN NA (PORCINE) 40 MG/0.4 ML DISP.SYRIN SQ SCH (09:43)
[2020-04-29] MEDS: THIAMINE HCL 100 MG TABLET (FP) PO SCH (09:44)
[2020-04-29 10:00] VITALS: BP 145/98; PULSE 76; TEMP 97.9
[2020-04-29] MEDS ORDERED: PT OWN MED DRAWER 7, Y5N ONE (10:48)
[2020-04-29] MEDS: NADOLOL 40 MG TABLET (FP) PO SCH (10:50)
--- NOTE | 2020-04-29 10:52 | PN ---
Teaching Attending Note Name of Resident: Caitlin Olivia ATTENDING PHYSICIAN STATEMENT I saw and evaluated the patient. I reviewed the resident's note and discussed the case with the resident. I agree with the resident's findings and plan as documented. SUBJECTIVE: Patient seen and examined OBJECTIVE: Last Vital Signs Temp Pulse Resp BP Pulse Ox 97.9 F 76 18 145/98 96 04/29/20 09:00 04/29/20 09:00 04/29/20 09:00 04/29/20 09:00 04/29/20 09:00 GENERAL: The patient is awake, alert, and fully oriented, in no acute distress. HEAD: Normal with no signs of trauma. EYES: PERRL, extraocular movements intact, sclera anicteric, conjunctiva clear. No ptosis. ENT: Ears normal, nares patent, oropharynx clear without exudates, moist mucous membranes. NECK: Trachea midline, full range of motion, supple. LUNGS: Breath sounds equal, clear to auscultation bilaterally, no wheezes, no crackles, no accessory muscle use. HEART: Regular rate and rhythm, S1, S2 without murmur, rub or gallop. ABDOMEN: Soft, nontender, nondistended, normoactive bowel sounds, no guarding, no rebound, no hepatosplenomegaly, no masses. EXTREMITIES: 2+ pulses, warm, well-perfused, no edema. NEUROLOGICAL: Cranial nerves II through XII grossly intact. Normal speech, hand tremors observed. PSYCH: Normal mood, normal affect. SKIN: Warm, dry, normal turgor, no rashes or lesions noted CBCD WBC 4.6 K/mm3 (4.0-10.0) 04/28/20 05:32 RBC 4.63 M/mm3 (4.00-5.60) 04/28/20 05:32 Hgb 14.8 GM/dL (11.7-16.9) 04/28/20 05:32 Hct 42.0 % (35.4-49) 04/28/20 05:32 MCV 90.7 fl (80-96) 04/28/20 05:32 MCHC 35.1 g/dl (32.0-35.9) 04/28/20 05:32 RDW 12.6 % (11.9-15.9) 04/28/20 05:32 Plt Count 323 K/MM3 (134-434) 04/28/20 05:32 MPV 7.6 fl (7.5-11.1) D 04/28/20 05:32 CMP Sodium 137 mmol/L (136-145) 04/28/20 05:32 Potassium 3.7 mmol/L (3.5-5.1) 04/28/20 05:32 Chloride 103 mmol/L (98-107) 04/28/20 05:32 Carbon Dioxide 24 mmol/L (21-32) 04/28/20 05:32 Anion Gap 10 MMOL/L (8-16) 04/28/20 05:32 BUN 14.7 mg/dL (7-18) 04/28/20 05:32 Creatinine 1.0 mg/dL (0.55-1.3) 04/28/20 05:32 Calcium 8.8 mg/dL (8.5-10.1) 04/28/20 05:32 Total Bilirubin 1.0 mg/dL (0.2-1) 04/28/20 05:32 AST 26 U/L (15-37) 04/28/20 05:32 ALT 52 U/L (13-61) 04/28/20 05:32 Alkaline Phosphatase 72 U/L (45-117) 04/28/20 05:32 Total Protein 8.1 g/dl (6.4-8.2) 04/28/20 05:32 Albumin 3.6 g/dl (3.4-5.0) 04/28/20 05:32 Active Medications Albuterol Sulfate (Ventolin Hfa Inhaler -) 2 puff IH QID PRN PRN Reason: SHORT OF BREATH/WHEEZING Aspirin (Ecotrin -) 81 mg PO DAILY [facility] Last Admin: 04/29/20 09:43 Dose: 81 mg Documented by: Enoxaparin Sodium (Lovenox -) 40 mg SQ DAILY [facility] Last Admin: 04/29/20 09:43 Dose: 40 mg Documented by: Folic Acid (Folic Acid -) 1 mg PO DAILY [facility] Last Admin: 04/29/20 09:43 Dose: 1 mg Documented by: Hydrochlorothiazide (Hctz -) 12.5 mg PO DAILY [facility] Last Admin: 04/29/20 09:43 Dose: 12.5 mg Documented by: Sodium Chloride (Normal Saline -) 1,000 mls @ 75 mls/hr IV ASDIR [facility] Last Admin: 04/29/20 05:48 Dose: 75 mls/hr Documented by: Lisinopril (Prinivil) 40 mg PO DAILY [facility] Last Admin: 04/29/20 09:43 Dose: 40 mg Documented by: Lorazepam (Ativan -) 0.5 mg PO Q6H [facility] Stop: 04/29/20 23:01 Last Admin: 04/29/20 05:45 Dose: 0.5 mg Documented by: Lorazepam (Ativan -) 0.5 mg PO Q4H PRN PRN Reason: Symptoms of Withdrawal Stop: 04/30/20 00:00 Lorazepam (Ativan -) 0.5 mg PO ONCE ONE Stop: 04/30/20 05:01 Multivitamins/Minerals/Vitamin C (Tab-A-Vit -) 1 tab PO DAILY [facility] Last Admin: 04/29/20 09:43 Dose: 1 tab Documented by: Nadolol (Corgard -) 40 mg PO DAILY [facility] Thiamine HCl (Vitamin B1 -) 100 mg PO DAILY [facility] Last Admin: 04/29/20 09:44 Dose: 100 mg Documented by: ASSESSMENT AND PLAN: 54M w/ pmh of pre-DM, HTN, Hep C Ab positive sp tx, EtOH use disorder(12-pack of 8oz cans of beer daily) presented with complaint of nonradiating midsternal chest pressure with SOB. Admitted for ACS r/o and EtOH withdrawal. #EtOH withdrawal CIWA 0 Ativan Protocol, MV, B12, folate and thiamine tolerating diet discussed abstinence, risks of behavior and complications trend electrolytes ACS ruled out (CP resolved) lactic acidosis (type B likely 2/2 EtOH, resolved) HTN elevated LFTs prediabetic HepC (s/p Rx) DVT prophylaxis Plan: Discharge home
[2020-04-29] MEDS ORDERED: NADOLOL 20 MG TABLET (FP) PO SCH (11:00)
--- NOTE | 2020-04-29 14:39 | DS ---
Physical Exam: SUBJECTIVE: Patient seen and examined at bedside. No acute events overnight. OBJECTIVE: Vital Signs Period Temp Pulse Resp BP Sys/Hoyt Pulse Ox Last 24 Hr 97.6 F-98.8 F 64-76 18-20 120-147/80-98 96-98 PHYSICAL EXAM GENERAL: Awake, alert, and fully oriented, in no acute distress. HEAD: Normal with no signs of trauma. Mild diaphoresis EYES: Pupils equal, round and reactive to light, extraocular movements intact, sclera anicteric, conjunctiva injected. EARS, NOSE, THROAT: Ears normal, nares patent, oropharynx clear without exudates. Moist mucous membranes. NECK: Normal range of motion, supple without lymphadenopathy, JVD, or masses. LUNGS: Breath sounds equal, clear to auscultation bilaterally. No wheezes, and no crackles. No accessory muscle use. HEART: Regular rate and rhythm, normal S1 and S2 without murmur, rub or gallop. ABDOMEN: Soft, nontender, not distended, no guarding, no rebound, no masses. MUSCULOSKELETAL: Normal range of motion at all joints. No bony deformities or tenderness. No CVA tenderness. UPPER EXTREMITIES: 2+ pulses, warm, well-perfused. No cyanosis. No clubbing. No peripheral edema. LOWER EXTREMITIES: 2+ pulses, warm, well-perfused. No calf tenderness. No peripheral edema. NEUROLOGICAL: Cranial nerves II-XII intact. Normal speech. CIWA 16(sweating, tongue fasculilations, hand tremors, bothered by light, anxious) SKIN: Warm, moist, normal turgor, no rashes or lesions noted, normal capillary refill. LABS HOSPITAL COURSE: Date of Admission:04/27/20 54M w/ pmh of pre-DM, HTN, Hep A Ab positive, , Hep C Ab positive sp tx([facility] 2017, 2mo), EtOH use disorder(12-pack of 8oz cans of beer daily) presented with complaint of nonradiating midsternal chest pressure with SOB. Trops were neg x3. EKG showed NSR, no evid of acute ischemia. He was monitored on the cardiac unit with no acute findings on telemetry. He was evaluated by the community service specialist with recommendation to start taking Nadolol and to discontinue Amlodipine. Additionally, he was found to be in acute alcohol withdrawal after which he was started on Ativan protocol. During his hospital stay, his symptoms improved. He was discharged home with instructions to continue taking Nadolol, complete his PO Ativan taper and to follow up with his PCP and community service specialist as an outpatient. Additionally, he was advised to obtain outpatient sleep study for further evaluation of possible [place]. Date of Discharge: 04/29/20 Minutes to complete discharge: 36 Discharge Summary Problems reviewed: Yes Reason For Visit: ALCOHOL WITHDRAWAL SYNDROME, CHEST PAIN Condition: Stable - Instructions Diet, Activity, Other Instructions: You were seen in the hospital for complaints of chest pressure and acute alcohol withdrawal. You were monitored on the cardiac unit and evaluated by the community service specialist. During your stay, you did not have any abnormal heart rhythms that could contribute to your symptoms. Additionally, you were started on a medication to prevent alcohol withdrawal. Your symptoms improved and you are now stable for discharge. Medications We have made the following changes to your medications: Please START taking Nadolol 40 mg once daily by mouth. Please START taking the rest of your Ativan medication to prevent alcohol withdrawal. You will have 2 more doses to take once you leave the hospital. It is important that you STOP drinking alcohol. Take one pill at 7pm tonight and the second pill at 11pm tonight. You may continue taking the rest of your home medications as directed. Follow Up Please follow up with your community service specialist, Dr. Monterroso within 1 week. You will need outpatient sleep studies to assess for possible obstructive sleep apnea. Referrals: Noman Monterroso MD [Staff Physician] - 1 Week Oscar Roldan MD [Primary Care Provider] - 1 Week Disposition: HOME - Home Medications Comprehensive Discharge Medication List: Ambulatory Orders Aspirin [Lo-Dose Aspirin EC] 81 mg PO DAILY 04/22/19 Hydrochlorothiazide 12.5 mg PO DAILY 10/29/19 Lisinopril [Prinivil -] 40 mg PO DAILY 10/29/19 Albuterol Sulfate Inhaler - [Ventolin HFA Inhaler -] 2 puff IH QID PRN 10/30/19 Folic Acid 1 mg PO DAILY 30 Days #30 tablet 03/28/20 Multivitamin 1 each PO DAILY #30 tablet 03/28/20 Thiamine HCl [Vitamin B1 -] 100 mg PO DAILY 30 Days #30 tablet 03/28/20 LORazepam [Ativan] 0.5 mg PO Q6H #2 tablet MDD 1mg 04/29/20 Lorazepam [Ativan] 0.5 mg PO Q6H PRN #2 tablet MDD 2 tab 04/29/20 Nadolol [Corgard -] 40 mg PO DAILY #30 tablet 04/29/20 This patient is new to me today: Yes Date on this admission: 04/29/20 Emergency Visit: Yes ED Registration Date: 04/27/20 Care time: The patient presented to the Emergency Department on the above date and was hospitalized for further evaluation of their emergent condition. Critical Care patient: No - Discharge Referral Referred to [facility] No ATTENDING PHYSICIAN STATEMENT I saw and evaluated the patient. I reviewed the resident's note and discussed the case with the resident. I agree with the resident's findings and plan as documented. SUBJECTIVE: OBJECTIVE: ASSESSMENT AND PLAN:
--- NOTE | 2020-04-29 21:54 | EKG ---
Test Reason : Blood Pressure : / mmHG Vent. Rate : 107 BPM Atrial Rate : 107 BPM P-R Int : 162 ms QRS Dur : 082 ms QT Int : 370 ms P-R-T Axes : 052 003 037 degrees QTc Int : 493 ms SINUS TACHYCARDIA OTHERWISE NORMAL ECG WHEN COMPARED WITH ECG OF 26-APR-2020 22:19, NO SIGNIFICANT CHANGE WAS FOUND Confirmed by CLINT WINTERS MD ([id number]) on 04/29/2020 9:54:32 PM Referred By: Fadia SALGUERO Confirmed By:CLINT WINTERS MD
--- NOTE | 2020-04-29 21:58 | EKG ---
Test Reason : Blood Pressure : / mmHG Vent. Rate : 086 BPM Atrial Rate : 086 BPM P-R Int : 160 ms QRS Dur : 086 ms QT Int : 398 ms P-R-T Axes : 063 025 054 degrees QTc Int : 476 ms NORMAL SINUS RHYTHM NORMAL ECG WHEN COMPARED WITH ECG OF 26-MAR-2020 00:07, NO SIGNIFICANT CHANGE WAS FOUND Confirmed by CLINT WINTERS MD ([id number]) on 04/29/2020 9:57:39 PM Referred By: Confirmed By:CLINT WINTERS MD
[2020-04-30] MEDS ORDERED: LORazepam 0.5 MG TABLET PO ONE (05:00)
== END 2020-04-29 15:42 | disposition home or self-care (01) | DRG 897 ==
LOC: JER 20:10 → JERBED 04-27 01:57 → J4W 04-27 08:11
PROVIDERS: ADMIT Internal Medicine; ATTEND Student in an Organized Health Care Education/Training Program
DX: F10.230 Alcohol dependence with withdrawal, uncomplicated (principal); E87.2 Acidosis; I10 Essential (primary) hypertension; R73.03 Prediabetes; B19.20 Unspecified viral hepatitis C without hepatic coma; J45.909 Unspecified asthma, uncomplicated; R07.9 Chest pain, unspecified; E66.9 Obesity, unspecified; Z68.34 Body mass index [BMI] 34.0-34.9, adult; E86.0 Dehydration; E78.1 Pure hyperglyceridemia; M17.0 Bilateral primary osteoarthritis of knee; K70.10 Alcoholic hepatitis without ascites
CPT/HCPCS: 36415; 71046-TC-FY; 80048; 80053; 80061; 83036; 83605; 83721; 83735; 84443; 84484; 85025; 85027; 85610; 85730; 93005; 93010; 99285-25; U0003

== ENCOUNTER 2020-09-09 17:37 | Inpatient (IN) | payer OTHER ==
[2020-09-09 17:53] VITALS: BMI 34.5
[2020-09-09] MEDS ORDERED: chlordiazePOXIDE HCL 25 MG CAPSULE PO ONE (20:34)
[2020-09-09] MEDS ORDERED: chlordiazePOXIDE HCL 25 MG CAPSULE ONE (20:36)
[2020-09-09] MEDS ORDERED: LORazepam 2 MG/ML SDV VIAL IVPUSH ONE (20:44)
[2020-09-09] MEDS ORDERED: LORazepam 2 MG/ML SDV VIAL ONE (20:50)
[2020-09-09 21:14] LABS: CHLORIDE 104 mmol/L (98-107); SODIUM 140 mmol/L (136-145)
[2020-09-09 21:17] LABS: ALBUMIN 3.4 g/dl (3.4-5.0); ANION GAP 7 MMOL/L (8-16); BLOOD UREA NITROGEN 17.8 mg/dL (7-18); CO2 28 mmol/L (21-32); GLUCOSE,RANDOM 114 mg/dL (74-106)
[2020-09-09 21:20] LABS: SGOT/AST 66 U/L (15-37); SGPT/ALT 119 U/L (13-61)
[2020-09-09 21:21] LABS: BILIRUBIN,TOTAL 0.8 mg/dL (0.2-1)
[2020-09-09 21:22] LABS: TOT PROT 8.3 g/dl (6.4-8.2)
[2020-09-09 21:23] LABS: ALK PHOS 70 U/L (45-117)
[2020-09-09 21:56] LABS: BASO % 0.7 % (0-2.0); EOS % 1.4 % (0-4.5); HEMATOCRIT 43.9 % (35.4-49); HEMOGLOBIN 15.2 GM/dL (11.7-16.9); LYMPH % 36.4 % (8-40); MCH 32.7 pg (25.7-33.7); MCHC 34.7 g/dl (32.0-35.9); MEAN CELL VOLUME 94.1 fl (80-96); MEAN PLT VOLUME 8.3 fl (7.5-11.1); MONO % 10.5 % (3.8-10.2); PLATELET COUNT 220 K/MM3 (134-434); RBC 4.66 M/mm3 (4.00-5.60); RDW 14.4 % (11.9-15.9)
[2020-09-10] MEDS ORDERED: LORazepam 0.5 MG TABLET PO PRN (04:25)
[2020-09-10] MEDS ORDERED: LORazepam 0.5 MG TABLET PO ONE (04:25)
[2020-09-10] MEDS ORDERED: LORazepam 1 MG TABLET ONE (04:42)
[2020-09-10 06:41] LABS: BASO % 0.7 % (0-2.0); EOS % 2.4 % (0-4.5); HEMATOCRIT 39.8 % (35.4-49); HEMOGLOBIN 14.1 GM/dL (11.7-16.9); LYMPH % 48.9 % (8-40); MCH 32.9 pg (25.7-33.7); MCHC 35.3 g/dl (32.0-35.9); MEAN CELL VOLUME 93.2 fl (80-96); MEAN PLT VOLUME 7.8 fl (7.5-11.1); MONO % 11.9 % (3.8-10.2); NEUT % 36.1 % (42.8-82.8); PLATELET COUNT 190 K/MM3 (134-434); RBC 4.27 M/mm3 (4.00-5.60); WHITE BLOOD COUNT 4.7 K/mm3 (4.0-10.0)
[2020-09-10 07:03] LABS: MAGNESIUM 1.8 mg/dL (1.8-2.4)
[2020-09-10 07:06] LABS: PHOSPHOROUS 3.7 mg/dL (2.5-4.9)
[2020-09-10 07:46] LABS: CALCIUM 8.7 mg/dL (8.5-10.1)
[2020-09-10 07:47] LABS: BLOOD UREA NITROGEN 15.7 mg/dL (7-18)
[2020-09-10 07:50] LABS: CREATININE 0.8 mg/dL (0.55-1.3)
[2020-09-10 07:51] LABS: BILIRUBIN,TOTAL 0.9 mg/dL (0.2-1); TOT PROT 7.4 g/dl (6.4-8.2)
[2020-09-10] MEDS ORDERED: MULTIVITAMINS (DAILY MVI) TABLET (FP) ONE (09:01)
[2020-09-10] MEDS ORDERED: HYDROCHLOROTHIAZIDE 25 MG TABLET (FP) ONE (09:01)
[2020-09-10] MEDS ORDERED: FOLIC ACID 1 MG TABLET (FP) ONE (09:02)
[2020-09-10] MEDS ORDERED: LISINOPRIL 20 MG TABLET ONE (09:02)
[2020-09-10] MEDS ORDERED: THIAMINE HCL 100 MG TABLET (FP) ONE (09:02)
[2020-09-10] MEDS ORDERED: ENOXAPARIN NA (PORCINE) 40 MG/0.4 ML DISP.SYRIN SQ ONE (09:02)
[2020-09-10] MEDS ORDERED: HYDROCHLOROTHIAZIDE 25 MG TABLET (FP) PO SCH ×2 (10:00→14:47)
[2020-09-10] MEDS ORDERED: NADOLOL 40 MG TABLET (FP) PO SCH (10:00)
[2020-09-10] MEDS: ENOXAPARIN NA (PORCINE) 40 MG/0.4 ML DISP.SYRIN SQ SCH (10:05)
[2020-09-10] MEDS: LISINOPRIL 20 MG TABLET PO SCH (10:05)
[2020-09-10] MEDS: MULTIVITAMINS (DAILY MVI) TABLET (FP) PO SCH (10:05)
[2020-09-10] MEDS: THIAMINE HCL 100 MG TABLET (FP) PO SCH (10:05)
[2020-09-10] MEDS: FOLIC ACID 1 MG TABLET (FP) PO SCH (10:05)
[2020-09-10] MEDS ORDERED: amLODIPine BESYLATE 5 MG TABLET (FP) PO ONE (17:32)
[2020-09-10] MEDS ORDERED: amLODIPine BESYLATE 5 MG TABLET (FP) ONE (17:50)
[2020-09-11 02:52] LABS: EPI CELLS 2 /uL (0-25.1); HYALINE CASTS 1 /uL (0-3.1); URINE APPEARANCE Error; URINE BACTERIA 203 /uL (0-1359); URINE BILIRUBIN 1+ (NEGATIVE); URINE COLOR DK YELLOW; URINE GLUCOSE (UA) NEGATIVE (NEGATIVE); URINE KETONE NEGATIVE (NEGATIVE); URINE LEUK ESTERASE NEGATIVE (NEGATIVE); URINE NITRITE NEGATIVE (NEGATIVE); URINE PROTEIN 2+ (NEGATIVE); URINE RBC 12 /uL (0-23.9); URINE UROBILINOGEN 0.2 mg/dL (0.2-1.0); URINE WBC 4 /uL (0-25.8)
[2020-09-11 07:17] LABS: CALCIUM 8.7 mg/dL (8.5-10.1)
[2020-09-11 07:18] LABS: BLOOD UREA NITROGEN 14.1 mg/dL (7-18); MAGNESIUM 1.9 mg/dL (1.8-2.4)
[2020-09-11 07:21] LABS: CREATININE 0.9 mg/dL (0.55-1.3)
[2020-09-11 07:22] LABS: BILIRUBIN,TOTAL 1.1 mg/dL (0.2-1)
[2020-09-11 07:23] LABS: TOT PROT 7.4 g/dl (6.4-8.2)
[2020-09-11] MEDS ORDERED: THIAMINE HCL 100 MG TABLET (FP) ONE (08:48)
[2020-09-11] MEDS ORDERED: MULTIVITAMINS (DAILY MVI) TABLET (FP) ONE (08:48)
[2020-09-11] MEDS ORDERED: HYDROCHLOROTHIAZIDE 25 MG TABLET (FP) ONE (08:48)
[2020-09-11] MEDS ORDERED: FOLIC ACID 1 MG TABLET (FP) ONE (08:49)
[2020-09-11] MEDS ORDERED: ENOXAPARIN NA (PORCINE) 40 MG/0.4 ML DISP.SYRIN SQ ONE (08:49)
[2020-09-11] MEDS ORDERED: LISINOPRIL 20 MG TABLET ONE (08:49)
[2020-09-11] MEDS: FOLIC ACID 1 MG TABLET (FP) PO SCH (09:00)
[2020-09-11] MEDS: LISINOPRIL 20 MG TABLET PO SCH (09:00)
[2020-09-11] MEDS: THIAMINE HCL 100 MG TABLET (FP) PO SCH (09:00)
[2020-09-11] MEDS: MULTIVITAMINS (DAILY MVI) TABLET (FP) PO SCH (09:00)
[2020-09-11] MEDS: ENOXAPARIN NA (PORCINE) 40 MG/0.4 ML DISP.SYRIN SQ SCH (09:00)
[2020-09-11] MEDS: HYDROCHLOROTHIAZIDE 25 MG TABLET (FP) PO SCH (09:00)
[2020-09-11] MEDS: NADOLOL 40 MG TABLET (FP) PO SCH (10:32)
[2020-09-11] MEDS ORDERED: hydrALAZINE HCL 25 MG TABLET (FP) PO ONE ×2 (12:58→16:36)
[2020-09-11] MEDS ORDERED: POTASSIUM CHLORIDE TABS 20 MEQ TABLET.ER (FP) PO ONE (13:59)
[2020-09-11] MEDS ORDERED: LABETALOL HCL 100 MG TABLET (FP) PO ONE (16:54)
[2020-09-12 08:46] LABS: BLOOD UREA NITROGEN 17.8 mg/dL (7-18); CALCIUM 8.8 mg/dL (8.5-10.1); MAGNESIUM 2.2 mg/dL (1.8-2.4)
[2020-09-12] MEDS: MULTIVITAMINS (DAILY MVI) TABLET (FP) PO SCH (10:44)
[2020-09-12] MEDS: NADOLOL 40 MG TABLET (FP) PO SCH (10:44)
[2020-09-12] MEDS: LISINOPRIL 20 MG TABLET PO SCH (10:44)
[2020-09-12] MEDS: THIAMINE HCL 100 MG TABLET (FP) PO SCH (10:44)
[2020-09-12] MEDS: FOLIC ACID 1 MG TABLET (FP) PO SCH (10:48)
[2020-09-12] MEDS: HYDROCHLOROTHIAZIDE 25 MG TABLET (FP) PO SCH (11:28)
[2020-09-12] MEDS: ENOXAPARIN NA (PORCINE) 40 MG/0.4 ML DISP.SYRIN SQ SCH (11:28)
[2020-09-12 14:09] VITALS: BP 142/97; PULSE 70; TEMP 97.5
[2020-09-12 15:08] LABS: COCAINE, UR NEGATIVE ng/ml (CUTOFF=300); METHADONE, UR NEGATIVE ng/ml (CUTOFF=300); OPIATES, URI NEGATIVE ng/ml (CUTOFF=300); PHENCYCLIDINE,URINE NEGATIVE ng/ml (CUTOFF=25)
[2020-09-12 15:09] LABS: URINE BARBITURATES NEGATIVE ng/ml (CUTOFF=200)
[2020-09-12 15:10] LABS: URINE AMPHETAMINES NEGATIVE ng/ml (CUTOFF=500)
[2020-09-12 15:37] LABS: URINE BENZODIAZEPINES POSITIVE ng/ml (CUTOFF=200)
[2020-09-13] MEDS ORDERED: MULTIVITAMINS (DAILY MVI) TABLET (FP) PO SCH (10:00)
[2020-09-13] MEDS ORDERED: FOLIC ACID 1 MG TABLET (FP) PO SCH (10:00)
[2020-09-13] MEDS ORDERED: NADOLOL 40 MG TABLET (FP) PO SCH (10:00)
[2020-09-13] MEDS ORDERED: HYDROCHLOROTHIAZIDE 25 MG TABLET (FP) PO SCH (10:00)
[2020-09-13] MEDS ORDERED: THIAMINE HCL 100 MG TABLET (FP) PO SCH (10:00)
[2020-09-13] MEDS ORDERED: ENOXAPARIN NA (PORCINE) 40 MG/0.4 ML DISP.SYRIN SQ SCH (10:00)
[2020-09-13] MEDS ORDERED: LISINOPRIL 20 MG TABLET PO SCH (10:00)
[2020-09-13 12:08] LABS: HEP B CORE AB, TOT Negative (Negative)
== END 2020-09-12 18:39 | disposition home or self-care (01) | DRG 305 ==
LOC: JER 17:37 → JERBED 21:29 → J6WEST-2 09-11 15:19
PROVIDERS: ADMIT Internal Medicine; ATTEND Internal Medicine
PROC: HZ2ZZZZ Detoxification Services for Substance Abuse Treatment (ICD-10-PCS; principal; 2020-09-09)
DX: I16.0 Hypertensive urgency (principal); F10.230 Alcohol dependence with withdrawal, uncomplicated; I50.30 Unspecified diastolic (congestive) heart failure; B19.20 Unspecified viral hepatitis C without hepatic coma; R74.01 Elevation of levels of liver transaminase levels; K76.0 Fatty (change of) liver, not elsewhere classified; E87.6 Hypokalemia; R73.03 Prediabetes; J45.909 Unspecified asthma, uncomplicated; E66.9 Obesity, unspecified; Z68.34 Body mass index [BMI] 34.0-34.9, adult; K70.0 Alcoholic fatty liver; I11.0 Hypertensive heart disease with heart failure; G47.30 Sleep apnea, unspecified; I72.9 Aneurysm of unspecified site
CPT/HCPCS: 36415; 71045-TC-FY; 80048; 80053; 80307; 81003; 82088; 82550; 83036; 83605; 83690; 83735; 83880; 84100; 84484; 85025; 86704; 86706; 86707; 86708; 86709; 87340; 87522; 93005; 93010; 93306-TC; 99285-25; C9803; U0003

== ENCOUNTER 2022-01-19 06:28 | Emergency (ER) | payer OTHER ==
[2022-01-19 06:32] VITALS: TEMP 98.2; BMI 34.4
[2022-01-19] MEDS ORDERED: THIAMINE HCL 100 MG TABLET (FP) PO ONE (07:49)
[2022-01-19] MEDS ORDERED: LORazepam 2 MG/ML SDV VIAL IVPUSH ONE ×2 (07:49→08:19)
[2022-01-19] MEDS ORDERED: FOLIC ACID 1 MG TABLET (FP) PO ONE (07:50)
[2022-01-19] MEDS ORDERED: SODIUM CHLORIDE 0.9% 500 ML INFUS.BAG IV ONE (08:03)
[2022-01-19 08:47] LABS: BASO % 0.7 % (0-2.0); EOS % 0.5 % (0-4.5); HEMATOCRIT 39.9 % (35.4-49); HEMOGLOBIN 14.1 GM/dL (11.7-16.9); MCH 32.5 pg (25.7-33.7); MCHC 35.4 g/dl (32.0-35.9); MEAN CELL VOLUME 91.9 fl (80-96); MEAN PLT VOLUME 7.9 fl (7.5-11.1); MONO % 8.5 % (3.8-10.2); NEUT % 49.3 % (42.8-82.8); PLATELET COUNT 327 10^3/uL (134-434); RBC 4.34 M/mm3 (4.00-5.60); RDW 13.5 % (11.9-15.9); WHITE BLOOD COUNT 5.3 K/mm3 (4.0-10.0)
[2022-01-19] MEDS ORDERED: THIAMINE HCL 100 MG TABLET (FP) ONE (08:47)
[2022-01-19] MEDS ORDERED: FOLIC ACID 1 MG TABLET (FP) ONE (08:47)
[2022-01-19 09:03] LABS: MAGNESIUM 2.4 mg/dL (1.8-2.4)
[2022-01-19 09:22] LABS: ALBUMIN 3.4 g/dl (3.4-5.0); CALCIUM 9.3 mg/dL (8.5-10.1)
[2022-01-19 09:26] LABS: BILIRUBIN,TOTAL 0.4 mg/dL (0.2-1); TOT PROT 8.1 g/dl (6.4-8.2)
[2022-01-19 13:30] VITALS: BP 132/90; PULSE 71
== END 2022-01-19 13:34 | disposition home or self-care (01) ==
LOC: JER 06:28
PROC: 3E033NZ Introduction of Analgesics, Hypnotics, Sedatives into Peripheral Vein, Percutaneous Approach (ICD-10-PCS; principal; 2022-01-19)
DX: F10.230 Alcohol dependence with withdrawal, uncomplicated (principal)
CPT/HCPCS: 0241U-QW; 36415; 71046-TC-FY; 80053; 83735; 84443; 84484; 85025; 93005; 93010; 99285-25

== ENCOUNTER 2022-02-12 18:17 | Emergency (ER) | payer OTHER ==
[2022-02-12 18:24] VITALS: BMI 35.9
[2022-02-12] MEDS ORDERED: PANTOPRAZOLE SODIUM 40 MG VIAL IVPB ONE (18:53)
[2022-02-12] MEDS ORDERED: SODIUM CHLORIDE 1,000 ML IV STA (18:53)
[2022-02-12] MEDS ORDERED: morphine CARPU-JECT 4 MG/1 ML DISP.SYRIN IVPUSH ONE (18:53)
[2022-02-12] MEDS ORDERED: ONDANSETRON 4 MG/2 ML VIAL IVPUSH ONE (18:54)
[2022-02-12] MEDS ORDERED: PANTOPRAZOLE SODIUM 40 MG/100 ML BAG IVPB ONE (19:33)
[2022-02-12] MEDS ORDERED: ONDANSETRON 4 MG/2 ML VIAL ONE (19:33)
[2022-02-12] MEDS ORDERED: morphine SULFATE 4 MG/ML VIAL ONE (19:33)
[2022-02-12 19:57] LABS: URINE APPEARANCE CLEAR; URINE BILIRUBIN NEGATIVE (NEGATIVE); URINE COLOR YELLOW; URINE GLUCOSE (UA) NEGATIVE (NEGATIVE); URINE KETONE NEGATIVE (NEGATIVE); URINE LEUK ESTERASE NEGATIVE (NEGATIVE); URINE NITRITE NEGATIVE (NEGATIVE); URINE PROTEIN NEGATIVE (NEGATIVE); URINE UROBILINOGEN 0.2 mg/dL (0.2-1.0)
[2022-02-12 21:55] LABS: BLOOD UREA NITROGEN 17.2 mg/dL (7-18); CALCIUM 9.9 mg/dL (8.5-10.1)
[2022-02-12 21:56] LABS: BASO % 0.9 % (0-2.0); EOS % 0.3 % (0-4.5); HEMATOCRIT 42.1 % (35.4-49); HEMOGLOBIN 15.1 GM/dL (11.7-16.9); LYMPH % 48.5 % (8-40); MCH 32.8 pg (25.7-33.7); MCHC 35.9 g/dl (32.0-35.9); MEAN CELL VOLUME 91.3 fl (80-96); MEAN PLT VOLUME 7.5 fl (7.5-11.1); MONO % 9.6 % (3.8-10.2); NEUT % 40.7 % (42.8-82.8); PLATELET COUNT 447 10^3/uL (134-434); RBC 4.62 M/mm3 (4.00-5.60); WHITE BLOOD COUNT 4.7 K/mm3 (4.0-10.0)
[2022-02-12 22:00] LABS: BILIRUBIN,TOTAL 0.5 mg/dL (0.2-1); TOT PROT 8.8 g/dl (6.4-8.2)
[2022-02-12] MEDS ORDERED: chlordiazePOXIDE HCL 25 MG CAPSULE PO ONE (23:22)
[2022-02-12] MEDS ORDERED: chlordiazePOXIDE HCL 25 MG CAPSULE ONE (23:42)
[2022-02-12 23:53] VITALS: BP 147/88; PULSE 67; TEMP 97.7
== END 2022-02-13 00:33 | disposition home or self-care (01) ==
LOC: JER 18:17
PROC: 3E033GC Introduction of Other Therapeutic Substance into Peripheral Vein, Percutaneous Approach (ICD-10-PCS; principal; 2022-02-12)
DX: K29.20 Alcoholic gastritis without bleeding (principal)
CPT/HCPCS: 36415; 74176-TC; 80053; 81003; 83690; 84484; 85025; 87086; 93005; 93010; 96361; 96374; 96375; 99285-25

== ENCOUNTER 2022-03-11 21:24 | Inpatient (IN) | payer OTHER ==
[2022-03-11] MEDS ORDERED: ONDANSETRON 4 MG/2 ML VIAL IVPUSH ONE (22:04)
[2022-03-11] MEDS ORDERED: chlordiazePOXIDE HCL 25 MG CAPSULE PO ONE (22:04)
[2022-03-11] MEDS ORDERED: LORazepam 2 MG/ML SDV VIAL IVPB ONE (22:23)
[2022-03-11] MEDS ORDERED: FAMOTIDINE 20 MG/50 ML IVPB 20 MG/50 ML MG IVPB ONE ×2 (22:26→22:29)
[2022-03-11] MEDS ORDERED: MAG HYDROX/AL HYDROX/SIMETH 30 ML UNIT-DOSE CUP PO ONE (22:26)
[2022-03-11] MEDS ORDERED: ONDANSETRON 4 MG/2 ML VIAL ONE (22:29)
[2022-03-11] MEDS ORDERED: MAG HYDROX/AL HYDROX/SIMETH 30 ML UNIT-DOSE CUP ONE (22:29)
[2022-03-11] MEDS ORDERED: THIAMINE HCL 200 MG/2 ML VIAL IVPB ONE (22:41)
[2022-03-11 22:57] LABS: BASO % 1.2 % (0-2.0); EOS % 0.4 % (0-4.5); HEMATOCRIT 39.3 % (35.4-49); HEMOGLOBIN 14.3 GM/dL (11.7-16.9); LYMPH % 43.1 % (8-40); MCH 33.3 pg (25.7-33.7); MCHC 36.4 g/dl (32.0-35.9); MEAN CELL VOLUME 91.7 fl (80-96); MEAN PLT VOLUME 6.7 fl (7.5-11.1); MONO % 8.8 % (3.8-10.2); NEUT % 46.5 % (42.8-82.8); PLATELET COUNT 363 10^3/uL (134-434); RBC 4.29 M/mm3 (4.00-5.60); RDW 14.1 % (11.9-15.9); WHITE BLOOD COUNT 5.9 K/mm3 (4.0-10.0)
[2022-03-11] MEDS ORDERED: THIAMINE HCL 200 MG/2 ML VIAL ONE (23:05)
[2022-03-11 23:20] LABS: BLOOD UREA NITROGEN 16.3 mg/dL (7-18); CALCIUM 9.1 mg/dL (8.5-10.1); MAGNESIUM 2.3 mg/dL (1.8-2.4)
[2022-03-11 23:21] LABS: ALBUMIN 3.7 g/dl (3.4-5.0)
[2022-03-11 23:25] LABS: BILIRUBIN,TOTAL 0.4 mg/dL (0.2-1); TOT PROT 8.4 g/dl (6.4-8.2)
[2022-03-12] MEDS ORDERED: LORazepam 2 MG/ML SDV VIAL IVPUSH ONE (00:08)
[2022-03-12] MEDS ORDERED: LORazepam 1 MG TABLET PO PRN (02:49)
[2022-03-12] MEDS: SODIUM CHLORIDE 1,000 ML IV SCH (03:04)
[2022-03-12] MEDS ORDERED: LORazepam 1 MG TABLET ONE ×3 (04:41→16:43)
[2022-03-12] MEDS: LORazepam 1 MG TABLET PO SCH ×4 (04:46→23:03)
[2022-03-12 07:49] LABS: BASO % 0.6 % (0-2.0); EOS % 0.7 % (0-4.5); HEMOGLOBIN 13.9 GM/dL (11.7-16.9); LYMPH % 42.7 % (8-40); MCHC 35.7 g/dl (32.0-35.9); MEAN CELL VOLUME 92.5 fl (80-96); MEAN PLT VOLUME 7.3 fl (7.5-11.1); MONO % 10.5 % (3.8-10.2); NEUT % 45.5 % (42.8-82.8); PLATELET COUNT 364 10^3/uL (134-434); RBC 4.21 M/mm3 (4.00-5.60); RDW 14.5 % (11.9-15.9); WHITE BLOOD COUNT 4.8 K/mm3 (4.0-10.0)
[2022-03-12 08:26] LABS: ALBUMIN 3.6 g/dl (3.4-5.0)
[2022-03-12 08:27] LABS: BLOOD UREA NITROGEN 14.6 mg/dL (7-18); PHOSPHOROUS 4.1 mg/dL (2.5-4.9)
[2022-03-12 08:28] LABS: BILIRUBIN,TOTAL 0.8 mg/dL (0.2-1); CALCIUM 8.8 mg/dL (8.5-10.1); MAGNESIUM 2.7 mg/dL (1.8-2.4)
[2022-03-12 08:56] LABS: N-TERMINAL BNP 82.3 pg/ml (5-125)
[2022-03-12] MEDS ORDERED: ASPIRIN COATED 81 MG TABLET.EC ONE (09:51)
[2022-03-12] MEDS ORDERED: amLODIPine BESYLATE 10 MG TABLET (FP) ONE (09:51)
[2022-03-12] MEDS ORDERED: THIAMINE HCL 200 MG/2 ML VIAL ONE (09:51)
[2022-03-12] MEDS ORDERED: FOLIC ACID 1 MG TABLET (FP) ONE (09:51)
[2022-03-12] MEDS ORDERED: MULTIVITAMINS (DAILY MVI) TABLET (FP) ONE (09:52)
[2022-03-12] MEDS ORDERED: ENOXAPARIN NA (PORCINE) 40 MG/0.4 ML DISP.SYRIN SQ ONE (09:52)
[2022-03-12] MEDS ORDERED: FAMOTIDINE 20 MG/50 ML IVPB 20 MG/50 ML MG IVPB ONE (09:52)
[2022-03-12] MEDS ORDERED: LISINOPRIL 20 MG TABLET ONE (09:54)
[2022-03-12] MEDS ORDERED: THIAMINE HCL 200 MG/2 ML VIAL IVPB SCH (10:00)
[2022-03-12] MEDS: amLODIPine BESYLATE 10 MG TABLET (FP) PO SCH (10:13)
[2022-03-12] MEDS: FOLIC ACID 1 MG TABLET (FP) PO SCH (10:13)
[2022-03-12] MEDS: ASPIRIN COATED 81 MG TABLET.EC PO SCH (10:13)
[2022-03-12] MEDS: ENOXAPARIN NA (PORCINE) 40 MG/0.4 ML DISP.SYRIN SQ SCH (10:13)
[2022-03-12] MEDS: FAMOTIDINE 20 MG/50 ML IVPB 20 MG/50 ML MG IVPB SCH (10:14)
[2022-03-12] MEDS: MULTIVITAMINS (DAILY MVI) TABLET (FP) PO SCH (10:14)
[2022-03-12] MEDS: LISINOPRIL 20 MG TABLET PO SCH (10:14)
[2022-03-12] MEDS: ALBUTEROL SO4 HFA INHALER IH SCH (10:14)
[2022-03-12] MEDS ORDERED: PANTOPRAZOLE 40 MG TABLET PO SCH (10:45)
[2022-03-12 23:02] VITALS: BMI 40.1
[2022-03-13] MEDS: SODIUM CHLORIDE 1,000 ML IV SCH (03:10)
[2022-03-13] MEDS: GEMFIBROZIL 600 MG TABLET (FP) PO SCH ×2 (06:09→16:29)
[2022-03-13] MEDS: LORazepam 1 MG TABLET PO SCH ×4 (06:11→22:19)
[2022-03-13 08:47] LABS: HEMATOCRIT 36.7 % (35.4-49); HEMOGLOBIN 12.8 GM/dL (11.7-16.9); MCH 32.8 pg (25.7-33.7); MCHC 34.8 g/dl (32.0-35.9); MEAN CELL VOLUME 94.1 fl (80-96); MEAN PLT VOLUME 7.7 fl (7.5-11.1); PLATELET COUNT 293 10^3/uL (134-434); RDW 14.1 % (11.9-15.9); WHITE BLOOD COUNT 4.8 K/mm3 (4.0-10.0)
[2022-03-13 09:02] LABS: BLOOD UREA NITROGEN 16.8 mg/dL (7-18); MAGNESIUM 2.7 mg/dL (1.8-2.4)
[2022-03-13 09:05] LABS: CREATININE 0.9 mg/dL (0.55-1.3); PHOSPHOROUS 2.6 mg/dL (2.5-4.9)
[2022-03-13] MEDS: ENOXAPARIN NA (PORCINE) 40 MG/0.4 ML DISP.SYRIN SQ SCH (09:43)
[2022-03-13] MEDS: FAMOTIDINE 20 MG/50 ML IVPB 20 MG/50 ML MG IVPB SCH (09:43)
[2022-03-13] MEDS: LISINOPRIL 20 MG TABLET PO SCH (09:43)
[2022-03-13] MEDS: THIAMINE HCL 100 MG TABLET (FP) PO SCH (09:44)
[2022-03-13] MEDS: NYSTATIN 100,000 UNIT/GM TOPICAL CREAM 15 GM TUBE TP SCH ×2 (09:44→21:38)
[2022-03-13] MEDS: MULTIVITAMINS (DAILY MVI) TABLET (FP) PO SCH (09:44)
[2022-03-13] MEDS: ASPIRIN COATED 81 MG TABLET.EC PO SCH (09:44)
[2022-03-13] MEDS: FOLIC ACID 1 MG TABLET (FP) PO SCH (09:44)
[2022-03-13] MEDS: amLODIPine BESYLATE 10 MG TABLET (FP) PO SCH (09:44)
[2022-03-13] MEDS: ALBUTEROL SO4 HFA INHALER IH SCH (09:45)
[2022-03-13] MEDS: PANTOPRAZOLE 40 MG TABLET PO SCH (11:02)
[2022-03-13] MEDS: NADOLOL 40 MG TABLET (FP) PO SCH (12:00)
[2022-03-14] MEDS ORDERED: LORazepam 0.5 MG TABLET PO PRN
[2022-03-14] MEDS: SODIUM CHLORIDE 1,000 ML IV SCH ×2 (00:13→08:26)
[2022-03-14] MEDS: LORazepam 0.5 MG TABLET PO SCH ×3 (04:50→18:11)
[2022-03-14] MEDS: GEMFIBROZIL 600 MG TABLET (FP) PO SCH ×3 (06:22→18:11)
[2022-03-14 07:26] LABS: EOS % 1.5 % (0-4.5); HEMATOCRIT 36.9 % (35.4-49); LYMPH % 38.2 % (8-40); MCH 33.2 pg (25.7-33.7); MCHC 35.3 g/dl (32.0-35.9); MEAN PLT VOLUME 7.3 fl (7.5-11.1); MONO % 12.6 % (3.8-10.2); NEUT % 46.7 % (42.8-82.8); PLATELET COUNT 270 10^3/uL (134-434); RBC 3.93 M/mm3 (4.00-5.60); RDW 14.3 % (11.9-15.9); WHITE BLOOD COUNT 4.3 K/mm3 (4.0-10.0)
[2022-03-14 07:45] LABS: CALCIUM 8.5 mg/dL (8.5-10.1)
[2022-03-14 07:49] LABS: CREATININE 0.9 mg/dL (0.55-1.3); MAGNESIUM 2.5 mg/dL (1.8-2.4); PHOSPHOROUS 2.6 mg/dL (2.5-4.9)
[2022-03-14] MEDS: ENOXAPARIN NA (PORCINE) 40 MG/0.4 ML DISP.SYRIN SQ SCH (10:02)
[2022-03-14] MEDS: FAMOTIDINE 20 MG/50 ML IVPB 20 MG/50 ML MG IVPB SCH (10:02)
[2022-03-14] MEDS: LISINOPRIL 20 MG TABLET PO SCH (10:02)
[2022-03-14] MEDS: FOLIC ACID 1 MG TABLET (FP) PO SCH (10:03)
[2022-03-14] MEDS: NADOLOL 40 MG TABLET (FP) PO SCH (10:03)
[2022-03-14] MEDS: THIAMINE HCL 100 MG TABLET (FP) PO SCH (10:03)
[2022-03-14] MEDS: PANTOPRAZOLE 40 MG TABLET PO SCH (10:03)
[2022-03-14] MEDS: ASPIRIN COATED 81 MG TABLET.EC PO SCH (10:03)
[2022-03-14] MEDS: MULTIVITAMINS (DAILY MVI) TABLET (FP) PO SCH (10:03)
[2022-03-14] MEDS: amLODIPine BESYLATE 10 MG TABLET (FP) PO SCH (10:03)
[2022-03-14] MEDS: NYSTATIN 100,000 UNIT/GM TOPICAL CREAM 15 GM TUBE TP SCH (10:04)
[2022-03-14] MEDS: ALBUTEROL SO4 HFA INHALER IH SCH (10:04)
[2022-03-14 14:25] LABS: PH,URINE 7.5 (5.0-8.0); URINE APPEARANCE CLEAR; URINE BILIRUBIN NEGATIVE (NEGATIVE); URINE COLOR YELLOW; URINE GLUCOSE (UA) NEGATIVE (NEGATIVE); URINE KETONE NEGATIVE (NEGATIVE); URINE LEUK ESTERASE NEGATIVE (NEGATIVE); URINE NITRITE NEGATIVE (NEGATIVE); URINE PROTEIN NEGATIVE (NEGATIVE); URINE UROBILINOGEN 0.2 mg/dL (0.2-1.0)
[2022-03-14 19:11] VITALS: BP 128/76; PULSE 63; TEMP 98
[2022-03-15] MEDS ORDERED: LORazepam 0.5 MG TABLET PO ONE (05:00)
== END 2022-03-14 19:46 | disposition home or self-care (01) | DRG 897 ==
LOC: JER 21:24 → JERBED 03-12 01:07 → UNDOADMOB 03-12 01:07 → INTOOBSV 03-12 02:42 → JERBED 03-12 02:42 → OBSVTOIN 03-12 02:42 → J4W 03-12 21:40
PROVIDERS: ADMIT Internal Medicine; ATTEND Internal Medicine
PROC: HZ2ZZZZ Detoxification Services for Substance Abuse Treatment (ICD-10-PCS; principal; 2022-03-12)
DX: F10.239 Alcohol dependence with withdrawal, unspecified (principal); E87.1 Hypo-osmolality and hyponatremia; Z68.41 Body mass index [BMI] 40.0-44.9, adult; I50.30 Unspecified diastolic (congestive) heart failure; R11.2 Nausea with vomiting, unspecified; E66.01 Morbid (severe) obesity due to excess calories; E78.1 Pure hyperglyceridemia; I10 Essential (primary) hypertension; B35.3 Tinea pedis; R07.89 Other chest pain
CPT/HCPCS: 36415; 71045-TC-FY; 80048; 80053; 80061; 81003; 83036; 83690; 83735; 83880; 84100; 84443; 84484; 85025; 85027; 93005; 93010; 99285-25; C9803-CS; U0003; U0005

== ENCOUNTER 2022-04-21 23:32 | Observation (INO) | payer OTHER ==
[2022-04-22 00:39] VITALS: BMI 34.0
[2022-04-22] MEDS ORDERED: MAG HYDROX/AL HYDROX/SIMETH -MYLANTA- ORAL SUSPENSION PO ONE (01:36)
[2022-04-22] MEDS ORDERED: FAMOTIDINE 20 MG/50 ML IVPB 20 MG/50 ML MG IVPB ONE ×2 (01:36→01:46)
[2022-04-22] MEDS ORDERED: MAG HYDROX/AL HYDROX/SIMETH 30 ML UNIT-DOSE CUP ONE (01:46)
[2022-04-22 02:08] LABS: HEMATOCRIT 41.4 % (35.4-49); HEMOGLOBIN 15.1 GM/dL (11.7-16.9); MCH 33.1 pg (25.7-33.7); MCHC 36.5 g/dl (32.0-35.9); MEAN CELL VOLUME 90.6 fl (80-96); PLATELET COUNT 333 10^3/uL (134-434); RBC 4.57 M/mm3 (4.00-5.60); RDW 13.6 % (11.9-15.9); WHITE BLOOD COUNT 5.1 K/mm3 (4.0-10.0)
[2022-04-22] MEDS ORDERED: LORazepam 2 MG/ML SDV VIAL IVPUSH ONE (02:16)
[2022-04-22 02:39] LABS: BLOOD UREA NITROGEN 17.8 mg/dL (7-18)
[2022-04-22 02:44] LABS: BILIRUBIN,TOTAL 0.4 mg/dL (0.2-1); TOT PROT 8.7 g/dl (6.4-8.2)
[2022-04-22 03:59] LABS: ANISOCYTOSIS 2+; MACROCYTOSIS 0
[2022-04-22] MEDS ORDERED: chlordiazePOXIDE HCL 25 MG CAPSULE PO PRN (06:58)
[2022-04-22] MEDS ORDERED: SODIUM CHLORIDE 1,000 ML IV SCH (07:00)
[2022-04-22 07:22] VITALS: TEMP 98.5
[2022-04-22] MEDS ORDERED: FOLIC ACID 1 MG TABLET (FP) ONE (08:41)
[2022-04-22] MEDS ORDERED: amLODIPine BESYLATE 10 MG TABLET (FP) ONE (08:41)
[2022-04-22] MEDS ORDERED: HYDROCHLOROTHIAZIDE 25 MG TABLET (FP) ONE (08:41)
[2022-04-22] MEDS ORDERED: ASPIRIN COATED 81 MG TABLET.EC ONE (08:41)
[2022-04-22] MEDS ORDERED: LISINOPRIL 10 MG TABLET ONE (08:42)
[2022-04-22] MEDS ORDERED: ALBUTEROL SO4 HFA INHALER IH ONE (08:45)
[2022-04-22] MEDS ORDERED: LISINOPRIL 20 MG TABLET ONE (08:45)
[2022-04-22] MEDS ORDERED: FOLIC ACID 1 MG TABLET (FP) PO SCH (10:00)
[2022-04-22] MEDS ORDERED: NADOLOL 40 MG TABLET (FP) PO SCH (10:00)
[2022-04-22] MEDS ORDERED: ALBUTEROL SO4 HFA INHALER IH SCH (10:00)
[2022-04-22] MEDS ORDERED: HYDROCHLOROTHIAZIDE 25 MG TABLET (FP) PO SCH (10:00)
[2022-04-22] MEDS ORDERED: amLODIPine BESYLATE 10 MG TABLET (FP) PO SCH (10:00)
[2022-04-22] MEDS ORDERED: ASPIRIN COATED 81 MG TABLET.EC PO SCH (10:00)
[2022-04-22] MEDS ORDERED: LISINOPRIL 20 MG TABLET PO SCH (10:00)
[2022-04-22 10:39] LABS: HEMATOCRIT 40.4 % (35.4-49); HEMOGLOBIN 14.4 GM/dL (11.7-16.9); MCH 32.4 pg (25.7-33.7); MCHC 35.8 g/dl (32.0-35.9); MEAN CELL VOLUME 90.7 fl (80-96); MEAN PLT VOLUME 6.7 fl (7.5-11.1); PLATELET COUNT 302 10^3/uL (134-434); RBC 4.45 M/mm3 (4.00-5.60); RDW 13.3 % (11.9-15.9); WHITE BLOOD COUNT 3.6 K/mm3 (4.0-10.0)
[2022-04-22] MEDS ORDERED: chlordiazePOXIDE HCL 25 MG CAPSULE PO SCH (11:00)
[2022-04-22 11:09] LABS: CALCIUM 8.3 mg/dL (8.5-10.1)
[2022-04-22 11:10] LABS: ALBUMIN 3.6 g/dl (3.4-5.0); BLOOD UREA NITROGEN 17.1 mg/dL (7-18); MAGNESIUM 2.3 mg/dL (1.8-2.4)
[2022-04-22 11:13] LABS: CREATININE 0.9 mg/dL (0.55-1.3); PHOSPHOROUS 2.6 mg/dL (2.5-4.9)
[2022-04-22 11:14] LABS: BILIRUBIN,TOTAL 0.5 mg/dL (0.2-1); TOT PROT 7.8 g/dl (6.4-8.2)
[2022-04-22] MEDS ORDERED: chlordiazePOXIDE HCL 25 MG CAPSULE ONE (11:57)
[2022-04-22 15:55] VITALS: BP 132/69; PULSE 70; RESP 20
[2022-04-22] MEDS ORDERED: GEMFIBROZIL 600 MG TABLET (FP) PO SCH (16:30)
[2022-04-24] MEDS ORDERED: chlordiazePOXIDE HCL 25 MG CAPSULE PO SCH (05:00)
[2022-04-25] MEDS ORDERED: chlordiazePOXIDE HCL 10 MG CAPSULE PO PRN
[2022-04-25] MEDS ORDERED: chlordiazePOXIDE HCL 10 MG CAPSULE PO SCH (05:00)
[2022-04-26] MEDS ORDERED: chlordiazePOXIDE HCL 10 MG CAPSULE PO SCH (05:00)
[2022-04-27] MEDS ORDERED: chlordiazePOXIDE HCL 10 MG CAPSULE PO ONE (05:00)
== END 2022-04-22 15:59 | disposition home or self-care (01) ==
LOC: JER 23:32 → JERBED 04-22 02:16
PROVIDERS: ADMIT Internal Medicine; ATTEND Internal Medicine
PROC: 3E033GC Introduction of Other Therapeutic Substance into Peripheral Vein, Percutaneous Approach (ICD-10-PCS; principal; 2022-04-22)
PROC: 3E033NZ Introduction of Analgesics, Hypnotics, Sedatives into Peripheral Vein, Percutaneous Approach (ICD-10-PCS; 2022-04-22)
PROC: 3E0337Z Introduction of Electrolytic and Water Balance Substance into Peripheral Vein, Percutaneous Approach (ICD-10-PCS; 2022-04-22)
DX: F10.939 Alcohol use, unspecified with withdrawal, unspecified (principal); R61 Generalized hyperhidrosis; R45.1 Restlessness and agitation; J45.909 Unspecified asthma, uncomplicated; R06.82 Tachypnea, not elsewhere classified; Z91.013 Allergy to seafood; E66.8 Other obesity; Z68.34 Body mass index [BMI] 34.0-34.9, adult; I10 Essential (primary) hypertension; E78.5 Hyperlipidemia, unspecified; Z29.8 Encounter for other specified prophylactic measures
CPT/HCPCS: 36415; 70450-TC; 71045-TC-FY; 72125-TC; 80053; 83690; 83735; 84100; 84484; 85025; 85027; 93005; 93010; 96365; 96375; 99285-25; C9803-CS; G0378; U0003; U0005

== ENCOUNTER 2022-05-26 00:21 | Inpatient (IN) | payer OTHER ==
[2022-05-26 01:32] LABS: BASO % 1.1 % (0-2.0); EOS % 0.1 % (0-4.5); HEMATOCRIT 45.5 % (35.4-49); HEMOGLOBIN 15.8 GM/dL (11.7-16.9); LYMPH % 38.3 % (8-40); MCH 31.7 pg (25.7-33.7); MCHC 34.8 g/dl (32.0-35.9); MEAN CELL VOLUME 91.1 fl (80-96); MEAN PLT VOLUME 6.6 fl (7.5-11.1); NEUT % 52.5 % (42.8-82.8); PLATELET COUNT 382 10^3/uL (134-434); RDW 13.3 % (11.9-15.9); WHITE BLOOD COUNT 6.2 K/mm3 (4.0-10.0)
[2022-05-26 01:40] LABS: INR 1.09 (0.83-1.09); PROTHROMBIN TIME (PATIENT) 12.5 SEC (9.7-13.0)
[2022-05-26] MEDS ORDERED: ONDANSETRON 4 MG/2 ML VIAL IVPUSH ONE (01:41)
[2022-05-26 01:42] LABS: ACTIVATED PTT 31.8 SECONDS (25.2-36.5)
[2022-05-26] MEDS ORDERED: diazePAM CARPU-JECT 10 MG/2 ML DISP.SYRIN IVPUSH ONE (01:42)
[2022-05-26] MEDS ORDERED: METOCLOPRAMIDE HCL INJECTION 10 MG/2 ML VIAL IVPB ONE (01:46)
[2022-05-26 01:58] LABS: ALBUMIN 3.7 g/dl (3.4-5.0); BLOOD UREA NITROGEN 29.5 mg/dL (7-18); CALCIUM 8.9 mg/dL (8.5-10.1); CREATININE 1.2 mg/dL (0.55-1.3)
[2022-05-26 02:00] LABS: BILIRUBIN,TOTAL 0.8 mg/dL (0.2-1); TOT PROT 8.6 g/dl (6.4-8.2)
[2022-05-26] MEDS ORDERED: METOCLOPRAMIDE HCL INJECTION 10 MG/2 ML VIAL ONE (02:00)
[2022-05-26] MEDS ORDERED: diazePAM CARPU-JECT 10 MG/2 ML DISP.SYRIN ONE (02:01)
[2022-05-26] MEDS ORDERED: SODIUM CHLORIDE 0.9% 500 ML INFUS.BAG IV ONE (02:25)
[2022-05-26 03:31] LABS: CALCIUM 8.9 mg/dL (8.5-10.1)
[2022-05-26 03:32] LABS: BLOOD UREA NITROGEN 29.1 mg/dL (7-18)
[2022-05-26 03:35] LABS: CREATININE 1.2 mg/dL (0.55-1.3)
[2022-05-26] MEDS ORDERED: diazePAM 5 MG TABLET PO PRN (04:22)
[2022-05-26] MEDS ORDERED: diazePAM 5 MG TABLET ONE ×4 (05:12→16:40)
[2022-05-26] MEDS: SODIUM CHLORIDE 1,000 ML IV SCH ×2 (05:17→23:43)
[2022-05-26] MEDS: diazePAM 5 MG TABLET PO SCH ×4 (05:17→23:31)
[2022-05-26 06:39] LABS: BASO % 0.4 % (0-2.0); EOS % 0.1 % (0-4.5); HEMOGLOBIN 15.3 GM/dL (11.7-16.9); LYMPH % 35.3 % (8-40); MCH 32.1 pg (25.7-33.7); MCHC 34.8 g/dl (32.0-35.9); MEAN CELL VOLUME 92.4 fl (80-96); MEAN PLT VOLUME 6.8 fl (7.5-11.1); MONO % 6.5 % (3.8-10.2); NEUT % 57.7 % (42.8-82.8); PLATELET COUNT 352 10^3/uL (134-434); RBC 4.76 M/mm3 (4.00-5.60); RDW 13.5 % (11.9-15.9); WHITE BLOOD COUNT 4.8 K/mm3 (4.0-10.0)
[2022-05-26 06:57] LABS: CALCIUM 8.5 mg/dL (8.5-10.1)
[2022-05-26 06:58] LABS: ALBUMIN 3.4 g/dl (3.4-5.0); BLOOD UREA NITROGEN 28.1 mg/dL (7-18); MAGNESIUM 2.4 mg/dL (1.8-2.4)
[2022-05-26 07:01] LABS: CREATININE 1.2 mg/dL (0.55-1.3); PHOSPHOROUS 3.8 mg/dL (2.5-4.9)
[2022-05-26 07:02] LABS: BILIRUBIN,TOTAL 0.8 mg/dL (0.2-1); TOT PROT 7.8 g/dl (6.4-8.2)
[2022-05-26] MEDS ORDERED: PANTOPRAZOLE 40 MG TABLET PO ONE (09:45)
[2022-05-26] MEDS ORDERED: ALBUTEROL SO4 HFA INHALER IH ONE (09:46)
[2022-05-26] MEDS ORDERED: FOLIC ACID 1 MG TABLET (FP) ONE (09:46)
[2022-05-26] MEDS ORDERED: THIAMINE HCL 100 MG TABLET (FP) ONE (09:46)
[2022-05-26] MEDS ORDERED: amLODIPine BESYLATE 10 MG TABLET (FP) ONE (09:46)
[2022-05-26] MEDS: PANTOPRAZOLE 40 MG TABLET PO SCH (09:54)
[2022-05-26] MEDS: amLODIPine BESYLATE 10 MG TABLET (FP) PO SCH (09:54)
[2022-05-26] MEDS: ALBUTEROL SO4 HFA INHALER IH SCH ×4 (09:54→23:31)
[2022-05-26] MEDS: FOLIC ACID 1 MG TABLET (FP) PO SCH (09:54)
[2022-05-26] MEDS: THIAMINE HCL 100 MG TABLET (FP) PO SCH (09:55)
[2022-05-26] MEDS: NADOLOL 40 MG TABLET (FP) PO SCH (09:58)
[2022-05-26 10:00] VITALS: RESP 18
[2022-05-26] MEDS ORDERED: ONDANSETRON 4 MG/2 ML VIAL IVPUSH PRN (10:04)
[2022-05-26] MEDS: GEMFIBROZIL 600 MG TABLET (FP) PO SCH ×2 (16:36→16:48)
[2022-05-26] MEDS ORDERED: KETOROLAC TROMETHAMINE 15 MG/ML VIAL ONE (16:41)
[2022-05-26 17:44] VITALS: BMI 38.7
[2022-05-27] MEDS: diazePAM 5 MG TABLET PO SCH ×3 (06:13→21:59)
[2022-05-27] MEDS: SODIUM CHLORIDE 1,000 ML IV SCH (06:13)
[2022-05-27] MEDS: GEMFIBROZIL 600 MG TABLET (FP) PO SCH ×2 (06:13→16:29)
[2022-05-27 10:04] LABS: BASO % 0.4 % (0-2.0); EOS % 0.2 % (0-4.5); HEMATOCRIT 42.3 % (35.4-49); HEMOGLOBIN 14.8 GM/dL (11.7-16.9); LYMPH % 32.5 % (8-40); MCH 32.5 pg (25.7-33.7); MEAN CELL VOLUME 92.7 fl (80-96); MEAN PLT VOLUME 7.2 fl (7.5-11.1); MONO % 7.2 % (3.8-10.2); NEUT % 59.7 % (42.8-82.8); PLATELET COUNT 311 10^3/uL (134-434); RBC 4.57 M/mm3 (4.00-5.60); RDW 13.6 % (11.9-15.9); WHITE BLOOD COUNT 5.3 K/mm3 (4.0-10.0)
[2022-05-27] MEDS ORDERED: NADOLOL 20 MG TABLET (FP) ONE (10:29)
[2022-05-27 10:32] LABS: BLOOD UREA NITROGEN 23.6 mg/dL (7-18); MAGNESIUM 2.6 mg/dL (1.8-2.4)
[2022-05-27] MEDS: NADOLOL 40 MG TABLET (FP) PO SCH (10:32)
[2022-05-27 10:33] LABS: ALBUMIN 3.5 g/dl (3.4-5.0)
[2022-05-27] MEDS: FOLIC ACID 1 MG TABLET (FP) PO SCH (10:33)
[2022-05-27] MEDS: amLODIPine BESYLATE 10 MG TABLET (FP) PO SCH (10:34)
[2022-05-27] MEDS: THIAMINE HCL 100 MG TABLET (FP) PO SCH (10:34)
[2022-05-27] MEDS: ENOXAPARIN NA (PORCINE) 40 MG/0.4 ML DISP.SYRIN SQ SCH (10:34)
[2022-05-27] MEDS: PANTOPRAZOLE 40 MG TABLET PO SCH (10:34)
[2022-05-27 10:35] LABS: CREATININE 1.2 mg/dL (0.55-1.3)
[2022-05-27] MEDS: ALBUTEROL SO4 HFA INHALER IH SCH ×4 (10:35→22:01)
[2022-05-27 10:37] LABS: BILIRUBIN,TOTAL 1.4 mg/dL (0.2-1); TOT PROT 7.8 g/dl (6.4-8.2)
[2022-05-28] MEDS ORDERED: diazePAM 5 MG TABLET PO SCH (06:00)
[2022-05-28] MEDS: GEMFIBROZIL 600 MG TABLET (FP) PO SCH (06:32)
[2022-05-28] MEDS ORDERED: NADOLOL 20 MG TABLET (FP) ONE (10:02)
[2022-05-28] MEDS: THIAMINE HCL 100 MG TABLET (FP) PO SCH (10:03)
[2022-05-28] MEDS: ENOXAPARIN NA (PORCINE) 40 MG/0.4 ML DISP.SYRIN SQ SCH (10:04)
[2022-05-28] MEDS: amLODIPine BESYLATE 10 MG TABLET (FP) PO SCH (10:04)
[2022-05-28] MEDS: FOLIC ACID 1 MG TABLET (FP) PO SCH (10:04)
[2022-05-28] MEDS: PANTOPRAZOLE 40 MG TABLET PO SCH (10:05)
[2022-05-28] MEDS: NADOLOL 40 MG TABLET (FP) PO SCH (10:05)
[2022-05-28] MEDS: ALBUTEROL SO4 HFA INHALER IH SCH (10:06)
[2022-05-28 10:52] VITALS: BP 141/81; PULSE 77; TEMP 97.8
[2022-05-28 11:24] LABS: BASO % 0.6 % (0-2.0); EOS % 0.8 % (0-4.5); HEMATOCRIT 40.8 % (35.4-49); HEMOGLOBIN 14.2 GM/dL (11.7-16.9); LYMPH % 33.9 % (8-40); MCH 32.7 pg (25.7-33.7); MCHC 34.9 g/dl (32.0-35.9); MEAN CELL VOLUME 93.6 fl (80-96); MEAN PLT VOLUME 6.8 fl (7.5-11.1); MONO % 8.1 % (3.8-10.2); NEUT % 56.6 % (42.8-82.8); PLATELET COUNT 267 10^3/uL (134-434); RBC 4.36 M/mm3 (4.00-5.60); RDW 13.4 % (11.9-15.9); WHITE BLOOD COUNT 4.7 K/mm3 (4.0-10.0)
[2022-05-28 11:57] LABS: CALCIUM 9.4 mg/dL (8.5-10.1)
[2022-05-28 11:58] LABS: ALBUMIN 3.4 g/dl (3.4-5.0); BLOOD UREA NITROGEN 19.6 mg/dL (7-18)
[2022-05-28 11:59] LABS: MAGNESIUM 2.5 mg/dL (1.8-2.4)
[2022-05-28 12:01] LABS: CREATININE 1.1 mg/dL (0.55-1.3)
[2022-05-28 12:06] LABS: BILIRUBIN,TOTAL 0.7 mg/dL (0.2-1); TOT PROT 7.7 g/dl (6.4-8.2)
[2022-05-29] MEDS ORDERED: diazePAM 5 MG TABLET PO ONE (06:00)
== END 2022-05-28 11:00 | disposition home or self-care (01) | DRG 897 ==
LOC: JER 00:21 → JERBED 02:48 → J5S 17:10
PROVIDERS: ADMIT Internal Medicine; ATTEND Nurse Practitioner Acute Care
DX: F10.239 Alcohol dependence with withdrawal, unspecified (principal); E87.1 Hypo-osmolality and hyponatremia; R07.9 Chest pain, unspecified; R11.2 Nausea with vomiting, unspecified; E66.9 Obesity, unspecified; Z68.38 Body mass index [BMI] 38.0-38.9, adult; E78.5 Hyperlipidemia, unspecified; I10 Essential (primary) hypertension
CPT/HCPCS: 36415; 71045-TC-FY; 71260-TC; 74177-TC; 76705-TC; 80048; 80053; 80307; 83690; 83735; 83880; 84100; 84484; 85025; 85610; 85730; 93005; 93010; 99285-25; C9803-CS; Q9967; U0003; U0005

== ENCOUNTER 2022-06-15 20:03 | Emergency (ER) | payer OTHER ==
[2022-06-15 20:45] VITALS: BP 168/97; PULSE 70; RESP 18; TEMP 98.3; BMI 38.4
[2022-06-15] MEDS ORDERED: OXYMETAZOLINE 0.05% NASAL SOLUTION 15 ML BOTTLE NS ONE (21:22)
[2022-06-15 22:05] LABS: BASO % 1.1 % (0-2.0); EOS % 0.8 % (0-4.5); HEMATOCRIT 39.9 % (35.4-49); HEMOGLOBIN 13.9 GM/dL (11.7-16.9); MCH 32.2 pg (25.7-33.7); MCHC 34.9 g/dl (32.0-35.9); MEAN CELL VOLUME 92.5 fl (80-96); MEAN PLT VOLUME 7.4 fl (7.5-11.1); MONO % 10.6 % (3.8-10.2); NEUT % 55.5 % (42.8-82.8); PLATELET COUNT 372 10^3/uL (134-434); RBC 4.32 M/mm3 (4.00-5.60); RDW 13.5 % (11.9-15.9); WHITE BLOOD COUNT 5.9 K/mm3 (4.0-10.0)
[2022-06-15 22:17] LABS: ALBUMIN 3.7 g/dl (3.4-5.0); CALCIUM 9.4 mg/dL (8.5-10.1)
[2022-06-15 22:20] LABS: CREATININE 1.1 mg/dL (0.55-1.3)
[2022-06-15 22:22] LABS: BILIRUBIN,TOTAL 0.3 mg/dL (0.2-1)
[2022-06-15 22:26] LABS: INR 1.09 (0.83-1.09); PROTHROMBIN TIME (PATIENT) 12.6 SEC (9.7-13.0)
[2022-06-15 22:28] LABS: ACTIVATED PTT 34.8 SECONDS (25.2-36.5)
== END 2022-06-15 22:58 | disposition home or self-care (01) ==
LOC: JER 20:03
DX: R04.0 Epistaxis (principal)
CPT/HCPCS: 36415; 80053; 85025; 85610; 85730; 93005; 93010; 99283-25

== ENCOUNTER 2022-10-23 14:04 | Observation (INO) | payer OTHER ==
[2022-10-23 14:19] VITALS: BMI 34.7
[2022-10-23] MEDS ORDERED: chlordiazePOXIDE HCL 25 MG CAPSULE PO ONE (14:57)
[2022-10-23] MEDS ORDERED: chlordiazePOXIDE HCL 25 MG CAPSULE ONE (15:02)
[2022-10-23 15:59] LABS: INR 1.02 (0.83-1.09); PROTHROMBIN TIME (PATIENT) 11.8 SEC (9.7-13.0)
[2022-10-23 16:00] LABS: BASO % 1.7 % (0-2.0); EOS % 0.8 % (0-4.5); HEMATOCRIT 40.2 % (35.4-49); HEMOGLOBIN 14.4 GM/dL (11.7-16.9); LYMPH % 27.7 % (8-40); MCH 32.9 pg (25.7-33.7); MCHC 35.9 g/dl (32.0-35.9); MEAN CELL VOLUME 91.6 fl (80-96); MEAN PLT VOLUME 7.6 fl (7.5-11.1); MONO % 7.7 % (3.8-10.2); NEUT % 62.1 % (42.8-82.8); PLATELET COUNT 394 10^3/uL (134-434); RBC 4.39 M/mm3 (4.00-5.60); RDW 14.3 % (11.9-15.9); WHITE BLOOD COUNT 5.6 K/mm3 (4.0-10.0)
[2022-10-23 16:02] LABS: ACTIVATED PTT 31.5 SECONDS (25.2-36.5)
[2022-10-23 16:08] LABS: CALCIUM 9.4 mg/dL (8.5-10.1)
[2022-10-23 16:09] LABS: ALBUMIN 3.7 g/dl (3.4-5.0); BLOOD UREA NITROGEN 10.7 mg/dL (7-18); MAGNESIUM 2.2 mg/dL (1.8-2.4)
[2022-10-23 16:13] LABS: BILIRUBIN,TOTAL 0.5 mg/dL (0.2-1); TOT PROT 8.4 g/dl (6.4-8.2)
[2022-10-23] MEDS ORDERED: ACETAMINOPHEN 325 MG TABLET (FP) PO PRN (16:43)
[2022-10-23] MEDS ORDERED: LORazepam 1 MG TABLET PO PRN (18:12)
[2022-10-23] MEDS ORDERED: SODIUM CHLORIDE 1,000 ML IV SCH (18:15)
[2022-10-23] MEDS ORDERED: ALBUTEROL SO4 HFA INHALER IH PRN (18:38)
[2022-10-24] MEDS: NYSTATIN 100,000 UNIT/GM TOPICAL CREAM 15 GM TUBE TP SCH ×3 (03:28→09:58)
[2022-10-24] MEDS ORDERED: LORazepam 1 MG TABLET PO PRN ×2 (06:01→12:20)
[2022-10-24 06:25] LABS: URINE UREA NITROGEN 543 mg/dL (350-1000)
[2022-10-24 08:01] LABS: BLOOD UREA NITROGEN 16.3 mg/dL (7-18)
[2022-10-24 08:02] LABS: BILIRUBIN,TOTAL 0.4 mg/dL (0.2-1); CALCIUM 8.7 mg/dL (8.5-10.1)
[2022-10-24 08:03] LABS: ALBUMIN 3.1 g/dl (3.4-5.0); TOT PROT 6.9 g/dl (6.4-8.2)
[2022-10-24 08:04] LABS: BILIRUBIN,DIRECT 0.2 mg/dL (0.0-0.2)
[2022-10-24 09:50] VITALS: RESP 18
[2022-10-24] MEDS ORDERED: amLODIPine BESYLATE 10 MG TABLET (FP) PO SCH (10:00)
[2022-10-24] MEDS ORDERED: PATIENT'S OWN MEDICATION (NON-FORMULARY) (Fluticasone Propionate [Flovent Diskus] 50 MCG B IH SCH (10:00)
[2022-10-24] MEDS ORDERED: NADOLOL 40 MG TABLET (FP) PO SCH (10:00)
[2022-10-24] MEDS ORDERED: THIAMINE HCL 100 MG TABLET (FP) PO SCH ×2 (10:00→22:00)
[2022-10-24] MEDS ORDERED: SODIUM CHLORIDE NASAL SPRAY 44 ML BOTTLE NS SCH (10:00)
[2022-10-24] MEDS ORDERED: ENOXAPARIN NA (PORCINE) 40 MG/0.4 ML DISP.SYRIN SQ SCH (10:00)
[2022-10-24] MEDS ORDERED: LISINOPRIL 20 MG TABLET PO SCH (10:00)
[2022-10-24] MEDS ORDERED: IBUPROFEN 400 MG TABLET (FP) PO PRN (12:20)
[2022-10-24] MEDS ORDERED: METHOCARBAMOL 500 MG TABLET PO PRN (12:20)
[2022-10-24] MEDS ORDERED: BENZOCAINE/MENTHOL (CHLORASEPTIC ) LOZENGE MM PRN (12:20)
[2022-10-24] MEDS ORDERED: MAG HYDROX/AL HYDROX/SIMETH 30 ML UNIT-DOSE CUP PO PRN (12:20)
[2022-10-24] MEDS ORDERED: POLYETHYLENE GLYCOL (HEALTHYLAX) 3350 17 GM PACKET PO PRN (12:20)
[2022-10-24] MEDS ORDERED: DICYCLOMINE HCL 10 MG CAPSULE PO PRN (12:20)
[2022-10-24] MEDS ORDERED: NICOTINE 10 MG CARTRIDGE (INHALER) IH PRN (12:20)
[2022-10-24] MEDS ORDERED: BISMUTH SUBSALICYLATE 524 MG/30 ML PO PRN (12:20)
[2022-10-24] MEDS ORDERED: hydrOXYzine PAMOATE 25 MG CAPSULE (FP) PO PRN (12:20)
[2022-10-24] MEDS ORDERED: IBUPROFEN 600 MG TABLET (FP) PO PRN (12:20)
[2022-10-24] MEDS ORDERED: ACETAMINOPHEN 325 MG TABLET (FP) PO PRN ×2 (12:20)
[2022-10-24] MEDS ORDERED: MAGNESIUM HYDROX 2400MG/30ML ORAL SUSPENSION 30 ML CUP PO PRN (12:20)
[2022-10-24] MEDS ORDERED: LOPERAMIDE HCL 2 MG CAPSULE PO PRN (12:20)
[2022-10-24] MEDS ORDERED: ONDANSETRON *ODT* 4 MG TABLET SL PRN (12:20)
[2022-10-24] MEDS ORDERED: PRENATAL VITAMINS W/ FOLIC ACID TABLET (FP) PO SCH (12:30)
[2022-10-24] MEDS ORDERED: FENOFIBRIC ACID 135 MG CAP PO SCH (12:45)
[2022-10-24] MEDS: LORazepam 1 MG TABLET PO SCH (13:16)
[2022-10-24 14:54] VITALS: PULSE 78
[2022-10-24 18:31] VITALS: BP 129/75; TEMP 98.6
[2022-10-24] MEDS ORDERED: MELATONIN 5 MG TABLETS PO SCH (22:00)
[2022-10-25] MEDS ORDERED: LORazepam 0.5 MG TABLET PO PRN (06:01)
[2022-10-26] MEDS ORDERED: LORazepam 0.5 MG TABLET PO PRN
[2022-10-26] MEDS ORDERED: LORazepam 0.5 MG TABLET PO SCH (05:00)
[2022-10-27] MEDS ORDERED: LORazepam 0.5 MG TABLET PO ONE (05:00)
== END 2022-10-24 19:31 | disposition home or self-care (01) ==
LOC: JER 14:04 → JERBED 16:39 → J4W 20:12
PROVIDERS: ADMIT Internal Medicine; ATTEND Internal Medicine
PROC: 3E023GC Introduction of Other Therapeutic Substance into Muscle, Percutaneous Approach (ICD-10-PCS; principal; 2022-10-23)
PROC: 3E0337Z Introduction of Electrolytic and Water Balance Substance into Peripheral Vein, Percutaneous Approach (ICD-10-PCS; 2022-10-23)
DX: F10.239 Alcohol dependence with withdrawal, unspecified (principal); R10.31 Right lower quadrant pain; G40.509 Epileptic seizures related to external causes, not intractable, without status epilepticus; R10.9 Unspecified abdominal pain; M19.90 Unspecified osteoarthritis, unspecified site; Z68.34 Body mass index [BMI] 34.0-34.9, adult; E78.00 Pure hypercholesterolemia, unspecified; I11.0 Hypertensive heart disease with heart failure; I50.30 Unspecified diastolic (congestive) heart failure; E66.8 Other obesity; J45.909 Unspecified asthma, uncomplicated; Z91.013 Allergy to seafood
CPT/HCPCS: 36415; 71046-TC-FY; 74177-TC; 80048; 80053; 80061; 80076; 82570; 83690; 83735; 84300; 84443; 84478; 84484; 84540; 85025; 85610; 85730; 93005; 93010; 96360; 96372; 99285-25; C9803-CS; G0378; Q9967; U0003; U0005

== ENCOUNTER 2023-01-23 02:09 | Emergency (ER) | payer OTHER ==
[2023-01-23] MEDS ORDERED: chlordiazePOXIDE HCL 25 MG CAPSULE PO ONE (02:36)
[2023-01-23 02:49] VITALS: BMI 34.0
[2023-01-23] MEDS ORDERED: chlordiazePOXIDE HCL 25 MG CAPSULE ONE (02:52)
[2023-01-23 03:12] LABS: VENOUS BASE EXCESS 2.4 mmol/L (-2-2); VENOUS PCO2 44.6 mmHg (38-52); VENOUS PH 7.409 (7.310-7.410)
[2023-01-23 03:15] LABS: BASO % 1.5 % (0-2.0); EOS % 1.1 % (0-4.5); HEMATOCRIT 39.7 % (35.4-49); HEMOGLOBIN 14.2 GM/dL (11.7-16.9); LYMPH % 35.2 % (8-40); MCH 32.2 pg (25.7-33.7); MCHC 35.8 g/dl (32.0-35.9); MEAN PLT VOLUME 7.2 fl (7.5-11.1); MONO % 11.9 % (3.8-10.2); NEUT % 50.3 % (42.8-82.8); PLATELET COUNT 352 10^3/uL (134-434); RBC 4.41 M/mm3 (4.00-5.60); WHITE BLOOD COUNT 5.4 K/mm3 (4.0-10.0)
[2023-01-23 03:40] LABS: CHLORIDE 103 mmol/L (98-107); POTASSIUM 3.6 mmol/L (3.5-5.1); SODIUM 137 mmol/L (136-145)
[2023-01-23 03:42] LABS: ALBUMIN 3.6 g/dl (3.4-5.0); ANION GAP 10 MMOL/L (8-16); BLOOD UREA NITROGEN 18.6 mg/dL (7-18); CALCIUM 8.9 mg/dL (8.5-10.1); CO2 25 mmol/L (21-32); LIPASE 152 U/L (73-393); MAGNESIUM 2.2 mg/dL (1.8-2.4)
[2023-01-23 03:43] LABS: GLUCOSE,RANDOM 166 mg/dL (74-106)
[2023-01-23 03:45] LABS: CREATININE 1.1 mg/dL (0.55-1.3); PHOSPHOROUS 1.5 mg/dL (2.5-4.9); SGOT/AST 31 U/L (15-37); SGPT/ALT 46 U/L (13-61)
[2023-01-23 03:47] LABS: BILIRUBIN,TOTAL 0.6 mg/dL (0.2-1)
[2023-01-23 03:48] LABS: ALK PHOS 52 U/L (45-117)
[2023-01-23 03:50] LABS: N-TERMINAL BNP 56.5 pg/ml (5-125)
[2023-01-23] MEDS ORDERED: NAPH,MB-DB/K PH,MBDB POWDER PACKET PO ONE (03:51)
[2023-01-23] MEDS ORDERED: NAPH,MB-DB/K PH,MBDB POWDER PACKET ONE (04:02)
[2023-01-23 05:37] VITALS: BP 120/74; PULSE 78; RESP 18; TEMP 98.1
== END 2023-01-23 05:38 | disposition home or self-care (01) ==
LOC: JER 02:09
DX: R06.02 Shortness of breath (principal); F41.9 Anxiety disorder, unspecified; R20.2 Paresthesia of skin; F10.930 Alcohol use, unspecified with withdrawal, uncomplicated; Y90.0 Blood alcohol level of less than 20 mg/100 ml; Z20.822 Contact with and (suspected) exposure to COVID-19
CPT/HCPCS: 0241U-QW; 36415; 71045-TC-FY; 80053; 80307; 82803; 83690; 83735; 83880; 84100; 84484; 85025; 93005; 93010; 99285-25

== ENCOUNTER 2023-03-10 07:37 | Observation (INO) | payer OTHER ==
[2023-03-10] MEDS ORDERED: ASPIRIN 81 MG CHEWABLE TABLETS PO ONE (08:18)
[2023-03-10] MEDS ORDERED: NITROGLYCERIN 2% OINTMENT - 1GM PACKET TD ONE ×2 (08:19→08:27)
[2023-03-10] MEDS ORDERED: ASPIRIN 81 MG CHEWABLE TABLETS ONE (08:27)
[2023-03-10 09:14] LABS: BASO % 0.5 % (0-2.0); EOS % 1.8 % (0-4.5); HEMATOCRIT 41.3 % (35.4-49); HEMOGLOBIN 13.9 GM/dL (11.7-16.9); LYMPH % 37.4 % (8-40); MCH 31.3 pg (25.7-33.7); MCHC 33.7 g/dl (32.0-35.9); MEAN CELL VOLUME 92.7 fl (80-96); MEAN PLT VOLUME 8.4 fl (7.5-11.1); MONO % 12.7 % (3.8-10.2); NEUT % 47.6 % (42.8-82.8); PLATELET COUNT 353 10^3/uL (134-434); RBC 4.45 M/mm3 (4.00-5.60); WHITE BLOOD COUNT 4.9 K/mm3 (4.0-10.0)
[2023-03-10 09:45] LABS: POTASSIUM 3.7 mmol/L (3.5-5.1)
[2023-03-10 09:47] LABS: CALCIUM 10.1 mg/dL (8.5-10.1)
[2023-03-10 09:48] LABS: ALBUMIN 3.8 g/dl (3.4-5.0); BLOOD UREA NITROGEN 20.8 mg/dL (7-18); MAGNESIUM 2.2 mg/dL (1.8-2.4)
[2023-03-10 09:52] LABS: BILIRUBIN,TOTAL 0.5 mg/dL (0.2-1)
[2023-03-10 09:53] LABS: TOT PROT 7.8 g/dl (6.4-8.2)
[2023-03-10] MEDS ORDERED: CYCLOBENZAPRINE HCL 10 MG TABLET (FP) PO PRN (11:52)
[2023-03-10] MEDS ORDERED: ALBUTEROL SO4 HFA INHALER IH PRN (11:52)
[2023-03-10] MEDS ORDERED: ALBUTEROL SO4 0.083% IH SOL 2.5 MG/3 ML VIAL.NEB. NEB PRN (11:52)
[2023-03-10] MEDS ORDERED: ACETAMINOPHEN 500 MG TABLET (FP) PO ONE (13:01)
[2023-03-10] MEDS ORDERED: ACETAMINOPHEN 325 MG TABLET (FP) ONE (13:06)
[2023-03-10 15:39] LABS: ARTERIAL BLD GAS O2 SATURATION 95.5 % (95-98); ARTERIAL BLOOD GAS BASE EXCESS 3.1 mmol/L (-2-2); ARTERIAL BLOOD GAS pH 7.449 (7.350-7.450)
[2023-03-10 15:41] LABS: ALLENS TEST POSITIVE
[2023-03-10 16:05] VITALS: BMI 38.2
[2023-03-10] MEDS: ACETAMINOPHEN 325 MG TABLET (FP) PO PRN (16:10)
[2023-03-10] MEDS: ATORVASTATIN CA 10 MG TABLET (FP) PO SCH (21:45)
[2023-03-11 08:21] LABS: HEMATOCRIT 38.3 % (35.4-49); MCH 31.6 pg (25.7-33.7); MCHC 33.9 g/dl (32.0-35.9); MEAN CELL VOLUME 93.3 fl (80-96); MEAN PLT VOLUME 8.5 fl (7.5-11.1); PLATELET COUNT 321 10^3/uL (134-434); WHITE BLOOD COUNT 4.7 K/mm3 (4.0-10.0)
[2023-03-11 08:34] LABS: BLOOD UREA NITROGEN 18.1 mg/dL (7-18); CALCIUM 9.3 mg/dL (8.5-10.1); MAGNESIUM 2.2 mg/dL (1.8-2.4)
[2023-03-11 08:35] LABS: ALBUMIN 3.3 g/dl (3.4-5.0)
[2023-03-11 08:38] LABS: CREATININE 0.9 mg/dL (0.55-1.3)
[2023-03-11 08:39] LABS: BILIRUBIN,TOTAL 0.4 mg/dL (0.2-1)
[2023-03-11] MEDS: ACETAMINOPHEN 325 MG TABLET (FP) PO PRN (08:56)
[2023-03-11] MEDS: FOLIC ACID 1 MG TABLET (FP) PO SCH (09:12)
[2023-03-11] MEDS: ASPIRIN COATED 81 MG TABLET.EC PO SCH (09:12)
[2023-03-11] MEDS: ENOXAPARIN NA (PORCINE) 40 MG/0.4 ML DISP.SYRIN SQ SCH (09:13)
[2023-03-11] MEDS: NADOLOL 40 MG TABLET (FP) PO SCH (09:13)
[2023-03-11] MEDS: LISINOPRIL 20 MG TABLET PO SCH (09:13)
[2023-03-11] MEDS ORDERED: amLODIPine BESYLATE 10 MG TABLET (FP) PO SCH (10:00)
[2023-03-11] MEDS: ATORVASTATIN CA 10 MG TABLET (FP) PO SCH (21:05)
[2023-03-12 08:33] LABS: HEMATOCRIT 39.1 % (35.4-49); HEMOGLOBIN 13.2 GM/dL (11.7-16.9); MCHC 33.6 g/dl (32.0-35.9); MEAN CELL VOLUME 92.3 fl (80-96); MEAN PLT VOLUME 8.4 fl (7.5-11.1); PLATELET COUNT 316 10^3/uL (134-434); RBC 4.24 M/mm3 (4.00-5.60); RDW 12.8 % (11.9-15.9); WHITE BLOOD COUNT 4.1 K/mm3 (4.0-10.0)
[2023-03-12 08:46] LABS: CALCIUM 9.2 mg/dL (8.5-10.1)
[2023-03-12 08:47] LABS: ALBUMIN 3.4 g/dl (3.4-5.0)
[2023-03-12 08:50] LABS: BLOOD UREA NITROGEN 19.7 mg/dL (7-18)
[2023-03-12 08:51] LABS: BILIRUBIN,TOTAL 0.4 mg/dL (0.2-1); TOT PROT 7.1 g/dl (6.4-8.2)
[2023-03-12 08:53] LABS: CREATININE 0.9 mg/dL (0.55-1.3)
[2023-03-12 08:55] LABS: MAGNESIUM 2.2 mg/dL (1.8-2.4)
[2023-03-12 08:57] LABS: PHOSPHOROUS 3.5 mg/dL (2.5-4.9)
[2023-03-12 09:49] VITALS: BP 126/75; PULSE 52; RESP 20; TEMP 97.7
[2023-03-12] MEDS: LISINOPRIL 20 MG TABLET PO SCH (09:56)
[2023-03-12] MEDS: FOLIC ACID 1 MG TABLET (FP) PO SCH (09:56)
[2023-03-12] MEDS: ENOXAPARIN NA (PORCINE) 40 MG/0.4 ML DISP.SYRIN SQ SCH (09:56)
[2023-03-12] MEDS: ASPIRIN COATED 81 MG TABLET.EC PO SCH (09:56)
[2023-03-12] MEDS ORDERED: NIFEdipine E.R. 30 MG TABLET PO SCH (10:00)
[2023-03-12] MEDS ORDERED: amLODIPine BESYLATE 5 MG TABLET (FP) PO SCH (10:00)
[2023-03-12] MEDS ORDERED: HYDROCHLOROTHIAZIDE 25 MG TABLET (FP) PO SCH (10:00)
[2023-03-12] MEDS ORDERED: REGADENOSON 0.4 MG/5 ML PRE-FILLED SYRINGE IVPUSH ONE ×2 (10:29→11:00)
[2023-03-12] MEDS: NADOLOL 40 MG TABLET (FP) PO SCH (12:07)
== END 2023-03-12 17:38 | disposition home or self-care (01) ==
LOC: JER 07:37 → UNDOADMOB 10:52 → JERBED 10:52 → INTOOBSV 11:24 → OBSVTOIN 11:24 → JERBED 14:03 → J4W 15:07
PROVIDERS: ADMIT Internal Medicine; ATTEND Internal Medicine
PROC: 3E023GC Introduction of Other Therapeutic Substance into Muscle, Percutaneous Approach (ICD-10-PCS; principal; 2023-03-10)
PROC: 3E033GC Introduction of Other Therapeutic Substance into Peripheral Vein, Percutaneous Approach (ICD-10-PCS; 2023-03-10)
DX: J80 Acute respiratory distress syndrome (principal); F10.99 Alcohol use, unspecified with unspecified alcohol-induced disorder; I11.0 Hypertensive heart disease with heart failure; I50.30 Unspecified diastolic (congestive) heart failure; J45.909 Unspecified asthma, uncomplicated; E78.5 Hyperlipidemia, unspecified; Z91.013 Allergy to seafood; R07.89 Other chest pain; R42 Dizziness and giddiness; Z87.891 Personal history of nicotine dependence
CPT/HCPCS: 36415; 36600; 71045-TC-FY; 78452-TC; 80053; 80061; 82803; 83036; 83735; 84100; 84443; 84484; 85025; 85027; 87635; 93005; 93010; 93017; 93306-TC; 96372; 96374; 99285-25; A9502; G0378; J2785

== ENCOUNTER 2025-04-21 19:53 | Emergency (ER) | payer OTHER ==
[2025-04-21 20:10] VITALS: BP 162/99; PULSE 66; RESP 20; TEMP 97.7; BMI 35.6
[2025-04-21] MEDS ORDERED: ALBUTEROL SO4 2.5/IPRATROPIUM 0.5 INH SOL 3 ML VIAL.NEB. NEB ONE (21:09)
[2025-04-21 21:10] LABS: GLUCOSE,RANDOM 108.0 mg/dL (74-106); TOT PROT 8.1 g/dl (6.4-8.2)
[2025-04-21] MEDS ORDERED: predniSONE 20 MG TABLET (UD) ONE (21:10)
[2025-04-21 21:12] LABS: CO2 23.0 mmol/L (21-32)
[2025-04-21 21:13] LABS: ALK PHOS 52.0 U/L (40-150)
[2025-04-21 21:16] LABS: CREATININE 0.92 mg/dL (0.55-1.3); SGOT/AST 30.0 U/L (5-34); SGPT/ALT 26.0 U/L (0-55)
[2025-04-21] MEDS: ALBUTEROL SO4 2.5/IPRATROPIUM 0.5 INH SOL 3 ML VIAL.NEB. NEB ONE (21:18)
[2025-04-21] MEDS: predniSONE 20 MG TABLET (UD) PO ONE (21:18)
[2025-04-21 21:23] LABS: N-TERMINAL BNP 69.6 pg/mL (0-299.9)
[2025-04-21 21:37] LABS: ABSOLUTE IMMATURE GRANULOCYTES 0.01 x10^3/uL (0.0-0.031); BASOPHILS # 0.03 x10^3/uL (0.01-0.08); EOSINOPHIL % 1.0 % (0.8-7.0); EOSINOPHILS # 0.06 x10^3/uL (0.04-0.54); HIV INTERPRETATION NEGATIVE (NEGATIVE); MCHC 33.5 g/dl (32.3-36.5); MEAN CELL VOLUME 92.6 fl (79.0-92.2); MEAN PLT VOLUME 9.7 fl (9.4-12.4); MONOCYTE # 0.52 x10^3/uL (0.30-0.82); MONOCYTE % 8.8 % (5.3-12.2); RDW 12.1 % (12.2-16.1)
[2025-04-21 23:35] LABS: HCV DIAGNOSTIC IN-HOUSE W/RFLX REACTIVE (NONREACTIVE)
== END 2025-04-21 22:12 | disposition home or self-care (01) ==
LOC: JER 19:53
PROC: 3E0F7GC Introduction of Other Therapeutic Substance into Respiratory Tract, Via Natural or Artificial Opening (ICD-10-PCS; principal; 2025-04-21)
DX: J45.901 Unspecified asthma with (acute) exacerbation (principal); R00.2 Palpitations; R06.02 Shortness of breath; R11.0 Nausea; R53.81 Other malaise; J34.89 Other specified disorders of nose and nasal sinuses; R00.0 Tachycardia, unspecified
CPT/HCPCS: 36415; 71046-TC-FY; 80053; 83735; 83880; 84484; 85025; 86803; 87389; 87522; 87637-QW; 93005; 93010; 94640; 99285-25

== ENCOUNTER 2025-04-22 05:05 | Observation (INO) | payer OTHER ==
[2025-04-22] MEDS ORDERED: diphenhydrAMINE HCL 25 MG CAPSULE (FP) PO ONE (07:34)
[2025-04-22] MEDS: diphenhydrAMINE HCL 25 MG CAPSULE (FP) PO ONE (08:09)
[2025-04-22] MEDS ORDERED: ENOXAPARIN NA (PORCINE) 100 MG/1 ML DISP.SYRIN SQ ONE ×2 (08:45→20:26)
[2025-04-22] MEDS: ENOXAPARIN NA (PORCINE) 100 MG/1 ML DISP.SYRIN SQ ONE ×2 (09:03→15:19)
[2025-04-22 09:13] LABS: ABSOLUTE IMMATURE GRANULOCYTES 0.02 x10^3/uL (0.0-0.031); BASOPHILS # 0.00 x10^3/uL (0.01-0.08); EOSINOPHIL % 0.0 % (0.8-7.0); EOSINOPHILS # 0.00 x10^3/uL (0.04-0.54); MCHC 34.1 g/dl (32.3-36.5); MEAN CELL VOLUME 91.3 fl (79.0-92.2); MEAN PLT VOLUME 9.0 fl (9.4-12.4); MONOCYTE # 0.13 x10^3/uL (0.30-0.82); MONOCYTE % 2.6 % (5.3-12.2); RDW 12.0 % (12.2-16.1)
[2025-04-22 09:17] LABS: BG HCT 47.0 % (35.4-49); VENOUS BASE EXCESS 0.1 mmol/L (-2-2); VENOUS O2 SATURATION 73.6 % (70-80); VENOUS PCO2 42.1 mmHg (38-52); VENOUS PH 7.393 (7.310-7.410)
[2025-04-22 09:23] LABS: INR 1.14 (0.83-1.09); PROTHROMBIN TIME (PATIENT) 12.4 SEC (9.7-13.0)
[2025-04-22 09:26] LABS: ACTIVATED PTT 29.5 SECONDS (25.2-36.5)
[2025-04-22 10:02] LABS: GLUCOSE,RANDOM 145.0 mg/dL (74-106)
[2025-04-22 10:03] LABS: CO2 25.0 mmol/L (21-32); TOT PROT 7.9 g/dl (6.4-8.2)
[2025-04-22 10:05] LABS: ALK PHOS 56.0 U/L (40-150)
[2025-04-22 10:08] LABS: CREATININE 0.8 mg/dL (0.55-1.3); SGOT/AST 18.0 U/L (5-34); SGPT/ALT 26.0 U/L (0-55)
[2025-04-22] MEDS ORDERED: ALBUTEROL SO4 HFA INHALER IH PRN (12:41)
[2025-04-22] MEDS: ACETAMINOPHEN 325 MG TABLET (FP) PO PRN (15:28)
[2025-04-22 15:41] VITALS: BMI 36.3
[2025-04-22] MEDS: BUDESONIDE/FORMETEROL FUMARATE 160/4.5 mcg INHALER IH SCH (21:51)
[2025-04-22] MEDS: ATORVASTATIN CA 20 MG TABLET (FP) PO SCH (21:52)
[2025-04-22] MEDS: CARVEDILOL 25 MG TABLET (FP) PO SCH (21:52)
[2025-04-22] MEDS: ENOXAPARIN NA (PORCINE) 100 MG/1 ML DISP.SYRIN SQ SCH (22:53)
[2025-04-23 07:45] VITALS: RESP 18
[2025-04-23 08:34] LABS: MCHC 33.2 g/dl (32.3-36.5); MEAN CELL VOLUME 93.9 fl (79.0-92.2); MEAN PLT VOLUME 9.4 fl (9.4-12.4); RDW 12.5 % (12.2-16.1)
[2025-04-23 08:50] LABS: INR 1.13 (0.83-1.09); PROTHROMBIN TIME (PATIENT) 12.4 SEC (9.7-13.0)
[2025-04-23 08:53] LABS: ACTIVATED PTT 33.8 SECONDS (25.2-36.5)
[2025-04-23 08:58] LABS: GLUCOSE,RANDOM 100.0 mg/dL (74-106)
[2025-04-23 09:00] LABS: CO2 29.0 mmol/L (21-32)
[2025-04-23 09:04] LABS: CREATININE 0.92 mg/dL (0.55-1.3); LDL CHOLESTEROL (ONLY SJRH) 104.0 mg/dL (5-100)
[2025-04-23] MEDS: LISINOPRIL 20 MG TABLET PO SCH (10:23)
[2025-04-23] MEDS: HYDROCHLOROTHIAZIDE 25 MG TABLET (FP) PO SCH (10:23)
[2025-04-23] MEDS: amLODIPine BESYLATE 5 MG TABLET (FP) PO SCH (10:23)
[2025-04-23 10:38] VITALS: BP 153/96; PULSE 56; TEMP 98.1
== END 2025-04-23 18:26 | disposition home or self-care (01) ==
LOC: JER 05:05 → INTOOBSV 09:10 → UNDOADMOB 09:10 → JERBED 09:10 → J8W 15:00 → JERBED 15:00 → J8W 04-23 12:24 → JERBED 04-23 12:24
PROVIDERS: ADMIT Student in an Organized Health Care Education/Training Program; ATTEND Student in an Organized Health Care Education/Training Program
PROC: 3E023GC Introduction of Other Therapeutic Substance into Muscle, Percutaneous Approach (ICD-10-PCS; principal; 2025-04-23)
DX: R09.02 Hypoxemia (principal); I50.30 Unspecified diastolic (congestive) heart failure; J44.9 Chronic obstructive pulmonary disease, unspecified; R06.00 Dyspnea, unspecified; E66.9 Obesity, unspecified; G47.33 Obstructive sleep apnea (adult) (pediatric); F10.239 Alcohol dependence with withdrawal, unspecified; E78.5 Hyperlipidemia, unspecified; M19.90 Unspecified osteoarthritis, unspecified site; M48.07 Spinal stenosis, lumbosacral region; R56.9 Unspecified convulsions; Z91.013 Allergy to seafood
CPT/HCPCS: 36415; 71275-TC; 80048; 80053; 80061; 82803; 82962; 83036; 83880; 84484; 85025; 85027; 85379; 85610; 85730; 86850; 86900; 86901; 87637-QW; 93005; 93010; 93306-TC; 93970-TC; 99285-25; G0378; Q9967